=== PATIENT | male | born 1970 | race Caucasian/White ===

== ENCOUNTER 2021-06-06 09:45 | Inpatient (IN) | payer MEDICARE, MEDICAID ==
[~2021-06-06] VITALS: Ht 182.9 cm; Wt 96.5 kg
[~2021-06-06 09:45] MED LIST: AMA100C PO; ARIP400S3 IM; CLOZ200T PO; DOCU-28 PO; OMEP40CA21 PO; PRAZ2CAP2 PO
[2021-06-06 11:30] LABS: BASOPHILS % (AUTO) 0.1 % (0-1); EOSINOPHILS # (AUTO) 0.1 X10'3 (0-0.9); EOSINOPHILS % (AUTO) 0.8 % (0-6); HEMATOCRIT 39.2 % (42.0-52.0); HEMOGLOBIN 13.3 g/dl (14.0-17.9); LYMPHOCYTES % (AUTO) 17.6 % (21-51); MEAN CORPUSCULAR HEMOGLOBIN 30.8 PG (27.0-31.0); MEAN CORPUSCULAR HGB CONC 33.9 g/dL (33.0-36.5); MEAN CORPUSCULAR VOLUME 90.8 FL (78-98); MEAN PLATELET VOLUME 7.4 FL (7.4-10.4); MONOCYTES # (AUTO) 0.9 X10'3 (0-0.9); MONOCYTES % (AUTO) 8.1 % (2-12); NEUTROPHILS # (AUTO) 8.1 X10'3 (1.8-7.7); NEUTROPHILS % (AUTO) 73.4 % (42-75); PLATELET COUNT 413 X10'3 (140-440); RED BLOOD COUNT 4.32 X10'6 (4.70-6.10); RED CELL DISTRIBUTION WIDTH 13.9 % (11.5-14.5); WHITE BLOOD COUNT 11.1 X10'3 (4.5-11.0)
[2021-06-06 11:37] LABS: ALANINE AMINOTRANSFERASE 85 U/L (12-78); ALBUMIN 3.6 G/DL (3.4-5.0); ALBUMIN/GLOBULIN RATIO 0.9 (1.1-1.5); ALKALINE PHOSPHATASE 76 IU/L (46-116); ANION GAP 14 (8-16); ASPARTATE AMINO TRANSFERASE 190 U/L (10-37); BILIRUBIN,TOTAL 0.7 MG/DL (0.1-1.0); BLOOD UREA NITROGEN 10 MG/DL (7-18); BUN/CREATININE RATIO 12.5 (5.4-32.0); CALCIUM 9.1 MG/DL (8.5-10.1); CHLORIDE 97 MMOL/L (99-107); GLUCOSE 67 MG/DL (70-104); POTASSIUM 3.4 MMOL/L (3.5-5.1); SODIUM 131 MMOL/L (135-145); TOTAL CARBON DIOXIDE 20.4 MMOL/L (24-32); TOTAL PROTEIN 7.5 G/DL (6.4-8.2); eGFR > 90 ML/MIN
[2021-06-06 11:45] LABS: ETHANOL < 0.010 GM/DL (0.0-0.010)
[2021-06-06 12:33] LABS: CLARITY,URINE CLEAR (Clear); GLUCOSE, URINE NEGATIVE (Neg); KETONES,URINE 40 mg/dl (Neg); LEUKOCYTE ESTERASE ,URINE NEGATIVE (Neg); NITRITES, URINE NEGATIVE (Neg); OCCULT BLOOD,URINE NEGATIVE (Neg); PROTEIN,URINE NEGATIVE (Neg); UROBILINOGEN,URINE 0.2 E.U/dL (0.2-1.0)
[2021-06-06 12:36] LABS: COLOR,URINE STRAW (Yellow); UA COLLECTION TYPE URINAL
[2021-06-06 12:38] LABS: URINE AMPHETAMINE SCREEN POSITIVE (Neg); URINE BARBITUATE SCREEN NEGATIVE (Neg); URINE BENZODIAZEPINES SCREEN NEGATIVE (Neg); URINE CANNABINOID SCREEN NEGATIVE (Neg); URINE COCAINE SCREEN NEGATIVE (Neg); URINE METHADONE SCREEN NEGATIVE (Neg); URINE OPIATE SCREEN NEGATIVE (Neg); URINE PHENCYCLIDINE SCREEN NEGATIVE (Neg)
[2021-06-06] MEDS: clozapine 100mg tablet PO SCH (22:43)
[2021-06-06] MEDS: prazosin 1mg capsule PO SCH (22:49)
[2021-06-07] MEDS ORDERED: HYDR-3965 PO (06:28)
--- NOTE | 2021-06-07 06:30 | NUR ---
RECEIVED PATIENT WALKING AROUND THE UNIT WITH AN UNSTEADY GAIT THIS MORNING. HE WAS ASSISTED BY STAFF TO THE RESTROOM AND BACK TO BED. PATIENT APPEARS DISORGANIZED, CONFUSED, TALKING LOUDLY, AND UNABLE TO FOLLOW SIMPLE COMMANDS. PATIENT RESTING IN BED AT THIS TIME WITH NO APPARENT DISTRESS. WILL CONTINUE TO MONITOR.
[2021-06-07] MEDS ORDERED: clozapine 100mg tablet PO SCH (08:00)
--- NOTE | 2021-06-07 08:26 | NUR ---
PACKET FAXED TO [facility] OFFICE
--- NOTE | 2021-06-07 08:35 | NUR ---
Patient sitting in bed eating breakfast. He received his RTN morning medication with no difficulty. He was disorganized during assessment, unable to answer simple questions. No change noted at this time. Will continue to monitor.
[2021-06-07] MEDS: pantoprazole 40mg Tablet.DR PO SCH (08:47)
[2021-06-07] MEDS: docusate sod 100mg capsule PO SCH ×2 (08:47→19:24)
[2021-06-07] MEDS: amantadine 100 MG capsule PO SCH ×2 (08:48→19:24)
--- NOTE | 2021-06-07 10:30 | NUR ---
PATIENT OBSERVED SLEEPING IN HIS ROOM AT THIS TIME. PATIENT NOTED PERIODICALLY YELLING OUT RANDOM WORDS WHILE SLEEPING. NO APPARENT DISTRESS NOTED. WILL CONTINUE TO MONITOR.
--- NOTE | 2021-06-07 12:35 | NUR ---
PATIENT AWOKE FROM HIS NAP AND WAS NOTED AMBULATING TO THE BATHROOM WITH AN UNSTEADY GAIT. HE WAS ASSISTED BY STAFF TO THE BATHROOM AND BACK TO HIS ROOM. PATIENT OBSERVED LYING DOWN IN BED WITH NO SIGNS OF DISTRESS. HE IS NOTED TO HAVE COARSE LUNG SOUNDS AND A WET COUGH. DR. EVANS NOTIFIED. PATIENT IS A POOR HISTORIAN AND UNABLE TO RESPOND TO SIMPLE QUESTIONS. WILL CONTINUE TO MONITOR.
--- NOTE | 2021-06-07 14:35 | NUR ---
PATIENT NOTED SLEEPING IN HIS ROOM. RESPIRATIONS EVEN, UNLABORED. NO S/S OF DISTRESS.
--- NOTE | 2021-06-07 16:30 | NUR ---
PATIENT OBSERVED SLEEPING ON HIS RIGHT SIDE IN BED. NO S/S OF DISTRESS NOTED. RESPIRATIONS EVEN, UNLABORED.
--- NOTE | 2021-06-07 19:00 | NUR ---
The patient has been resting on his bed. He ate 100% of his dinner. He is poorly oriented. He could not state how he came to be in the hospital. He was made aware that he was on a 5150 hold and why. He was unable to verbalize a plan for food, alf or clothing. He admits to hearing voices. His replies are very disorganized and at times it is difficult to understand what he trying to say. At one point he stated, "I have broken Iranian. Please don't correct it" The statement was at an odd time when no one was speaking with him.
[2021-06-07] MEDS: clozapine 100mg tablet PO SCH (19:25)
[2021-06-07] MEDS: prazosin 1mg capsule PO SCH (19:31)
--- NOTE | 2021-06-07 21:23 | NUR ---
The patient is resting on his bed and appears to be asleep. He was compliant with his medications. The patient periodically talks in his sleep.
--- NOTE | 2021-06-07 22:42 | NUR ---
The patient appears to be sleeping
--- NOTE | 2021-06-08 00:17 | NUR ---
The patient appears to be sleeping
--- NOTE | 2021-06-08 02:08 | NUR ---
THe patient is sleeping on his bed but frequently talking or calling out in his sleep
--- NOTE | 2021-06-08 04:26 | NUR ---
THe patient is resting on his bed but almost continuous talking to himself or in his sleep
--- NOTE | 2021-06-08 06:41 | NUR ---
Received Pt in bed sleeping w/o distress at the beginning of the shift.
[2021-06-08] MEDS: amantadine 100 MG capsule PO SCH ×2 (08:00→20:28)
--- NOTE | 2021-06-08 08:40 | NUR ---
Attempted to arouse Pt for breakfast and AM meds. Pt mumbled and was drooling. Pt tossed and turned and went back to sleep.
[2021-06-08] MEDS: pantoprazole 40mg Tablet.DR PO SCH (09:56)
[2021-06-08] MEDS: docusate sod 100mg capsule PO SCH ×2 (09:57→20:28)
--- NOTE | 2021-06-08 10:15 | NUR ---
Pt woke and used rest room. Pt returned to bed and spoke with this RN and another staff more clear and is less lethargic. Pt recognized this RN and another from another facility and smiled and laughed. Consulted with Dr Salinas who DC'd current clozaril orders and started at lower dose of 50mg Bid because he had not taken clozaril for over 3 weeks, after eloping from [place] on Apr. Addendum: 06/08/21 at 1641 by ERVIN The time of this note should be 1400. It was a late entry and time was recorded incorectly.
--- NOTE | 2021-06-08 11:00 | NUR ---
Pt in bed and appears to be sleeping at this time.
--- NOTE | 2021-06-08 16:43 | NUR ---
Pt in bed and periodically talking to himself and appears to be responding to internal stimuli. Pt is calm and not disturbing others.
--- NOTE | 2021-06-08 19:26 | NUR ---
One to one with the patient and discussed his plan of care. The patient did not know where he was at or why. He was reoriented. He was oriented to date and year which he also did not know. He denies voices but he clearly is responding to internal stimuli. His speech is much clearer and he currently is not drooling. He does not have a plan for food, assisted or clothing.
[2021-06-08] MEDS ORDERED: clozapine 25mg tablet PO SCH (20:00)
[2021-06-08] MEDS: prazosin 1mg capsule PO SCH (20:28)
--- NOTE | 2021-06-08 20:59 | NUR ---
The patient is resting on his bed quietly talking to himself. Took medications. Had an evening snack.
--- NOTE | 2021-06-08 23:08 | NUR ---
The patient appears to be sleeping
--- NOTE | 2021-06-09 01:27 | NUR ---
The patient appears to be sleeping
--- NOTE | 2021-06-09 03:09 | NUR ---
The patient appears to be sleeping
--- NOTE | 2021-06-09 05:24 | NUR ---
The patient appears to have slept well throughout the night.
--- NOTE | 2021-06-09 06:30 | NUR ---
Received pt. sleeping in bed at the beginning of the shift, rr are even and unlabored.
--- NOTE | 2021-06-09 08:30 | NUR ---
Pt. was cooperative with physical, mental health assessment, and medications. He presents as gaurded with possible paranoid delusions. When questioned by this senior mortgage underwriter why he is here, pt. states in a delusional manner, "I drank poison water." Pt. currently denies any S/I, H/I, or A/V/HOLGUIN. He returns back to sleep. Per [facility] 3568 hold will be re-written on pt.
[2021-06-09] MEDS: amantadine 100 MG capsule PO SCH ×2 (08:49→21:49)
[2021-06-09] MEDS: pantoprazole 40mg Tablet.DR PO SCH (08:50)
[2021-06-09] MEDS: docusate sod 100mg capsule PO SCH ×2 (08:50→21:49)
[2021-06-09] MEDS ORDERED: CLOZAPINE 25 MG oral disintegrating tablet PO SCH ×2 (08:53→20:00)
[2021-06-09] MEDS: CLOZAPINE 25 MG oral disintegrating tablet PO SCH ×2 (09:05→22:09)
--- NOTE | 2021-06-09 10:49 | NUR ---
PtErnie nate to lay in bed, currently laying on his back, appears to be resting comfortably.
--- NOTE | 2021-06-09 12:27 | NUR ---
Pt. continues to sleep at this time, laying on his left side, rr even and unlabored.
--- NOTE | 2021-06-09 14:37 | NUR ---
Pt. sleeping on his left side at this time, appears to be resting comfortably
--- NOTE | 2021-06-09 16:23 | NUR ---
Pt. continues to sleep on his left side at this time, rr remain even and unlabored.
--- NOTE | 2021-06-09 17:58 | NUR ---
Pt. up briefly to ask when dinner will be served, returned to bed, resting comfortably.
--- NOTE | 2021-06-09 18:34 | NUR ---
assumed care; Patient resting in bed.
[2021-06-09] MEDS ORDERED: loperamide 2mg capsule PO PRN (20:05)
[2021-06-09] MEDS ORDERED: mag hydrox/Alum hydrox/simeth 30ml oral suspension PO PRN (20:05)
[2021-06-09] MEDS ORDERED: magnesium hydroxide 30ml (MOM) UD suspension PO PRN (20:05)
[2021-06-09] MEDS ORDERED: acetaminophen 325mg tablet PO PRN ×2 (20:05)
[2021-06-09 20:50] VITALS: BP 99/70
--- NOTE | 2021-06-09 20:50 | NUR ---
ADMIT NOTE: Pt. admitted to [facility] from ER Overflow. Vitals obtained and 2 person skin assessment done. During admission assessment pt. became easily agitated with RN's questions, stating, "I Just need to eat and get some sleep and do these questions later". Per 5150 pt. was unable to formulate plan for food, clothing, and assisted since leaving [facility]. has been off of his medications, confused, and disorganized. During interview pt. denies SI/HI, A/V hallucinations, however, pt. makes some delusional statements such as, "I had lazers on my stomach causing me problems... I had all kinds of lazers on me, it's been going on for a long time". Pt. also makes contradictory statements, when asked about his last bowel movement pt. states, "I've been constipated for a long time, I haven't had a bowel movement in a month". Shortly after pt. states, "I've been having so much diarrhea, that's all I have now". Pt. does not know his vaccination history, and when asked if he had a COVID vaccination, states, "I think so". RN informed pt. to inform staff if having loose stools. Pt. given all HS medications except for Prazosin due to pt.'s BP being decreased at 99/70. Pt. reports previous suicide attempt a few years ago when he tried slitting his neck with a knife, pt. showed this RN a scar on the right side of his neck. Pt. reports he is homeless. Addendum: 06/10/21 at 0242 by Myron Lynch RN additionally, pt. is positive for amphetamines.
[2021-06-09] MEDS: prazosin 1mg capsule PO SCH (21:00)
[2021-06-10 08:00] VITALS: BP 111/75
[2021-06-10] MEDS: docusate sod 100mg capsule PO SCH ×2 (08:31→20:30)
[2021-06-10] MEDS: amantadine 100 MG capsule PO SCH ×2 (08:31→20:30)
[2021-06-10] MEDS: CLOZAPINE 25 MG oral disintegrating tablet PO SCH ×2 (08:31→20:31)
[2021-06-10] MEDS: pantoprazole 40mg Tablet.DR PO SCH (08:31)
[2021-06-10 08:41] LABS: CHOLESTEROL 124 MG/DL (0-200); HDL CHOLESTEROL 41 MG/DL (35-60); LDL CHOLESTEROL 60 MG/DL (50-100); TRIGLYCERIDES 132 MG/DL (20-135)
[2021-06-10 08:43] LABS: HEMOGLOBIN A1C 5.4 % (4.5-6.2)
--- NOTE | 2021-06-10 13:19 | NUR ---
Kenneth is a 50 y/o single male who was placed on 5150 for grave disabiliy. [facility] called [facility] to report that Kenneth had presnted there to get money and was concerned for his well-being. He had gotten $800 on 05/30 and was unable to say what had happened to his money. [facility] met with him to evaluate for 5150 criteria. He was inadequately dressed for the cold weather. He was unable to report where he had stayed the night before and reported he did not sleep due to being cold. He was paranoid and delusional regarding drinking "nuclear water" and stated he was poisoned. He stated he had been staying at the [facility], however, [facility] confirmed he had not been there. He could not recall how he was getting food or the last time he had eaten at the [place]. He also exhibited grandiose delusions regarding owning various companies. Kenneth has a long history of mental health treatment with [facility] including a history of [facility] conservatorship[facility]He was released from [facility] [facility] until 05/17/21. He had AWOL'd and stopped taking his medications and was given a 30 day notice. Kenneth will likely discharge to a hotel and continue working with [facility]. Kenneth did not want to sign consent/release, "I've signed my name over 20 times in the last couple days and it broke me". Plan: Medical Staff Manager will work with Kenneth on a discharge plan and follow up. BHAVANA Castanon Addendum: 06/10/21 at 1323 by Lorelei Infante Amended: Links added.
--- NOTE | 2021-06-10 16:47 | NUR ---
Nursing Progress Note: Legal hold: 5250 Client on involuntary status for GD. Report received from KEIRA Ridley with use of SBAR. Why are they here: Pt. admitted to [facility] from ER Overflow. Vitals obtained and 2 person skin assessment done. During admission assessment pt. became easily agitated with RN's questions, stating, "I Just need to eat and get some sleep and do these questions later". Per 5150 pt. was unable to formulate plan for food, clothing, and correction since leaving [facility]. has been off of his medications, confused, and disorganized. Assessment What has happened this shift: Received pt. sleeping at shift change. Patient awakens for breakfast in the community room. Patient takes medications without incident. Patient then goes back to bed for nap. One to one performed at patient's bedside. Patient reports that the reason he is here is because of radioactive waste water that the patient was exposed to. Patient states that he always hears auditory hallucinations. Patient denies SI/HI. S/I, H/I: Denies. A/VH: +A/H Sleep: 6.50 ADL's: Independent. Group attendance: No Were meds taken: yes Any med S/E: None noted. Mental Status Exam Appearance: Male with short hair wearing unit attire. Eye contact: Direct. Behavior: Cooperative. Speech: Clear. Mood: Depressed. Affect: Blunted. Thought process: Disorganized, psychosis Thought Content: Getting needs met. Cognition: A&O x 3 Insight: Poor. Judgment: Poor PRNs: None. Interventions Therapeutic interventions: Maintained a safe and therapeutic environment, ensured contract for safety, provided clear and simple instructions, attempted to orient to reality, monitored behaviors and need for intervention and redirection, provided active listening and positive encouragement, and maintained Q 15min safety checks. Restraints/seclusion/emergency medication: N/A Justification of Continued Inpatient Treatment: Per JAMES Jo, pt. continues to require a safe and supportive environment.
[2021-06-10 19:00] VITALS: BP 121/70
[2021-06-10] MEDS: prazosin 1mg capsule PO SCH (20:30)
--- NOTE | 2021-06-11 04:21 | NUR ---
RN PROGRESS NOTE: LEGAL HOLD: 5150 for 5150. REASON FOR ADMIT: Client was living at [facility] and stopped taking his medications. He was also positive for Meth upon admission. Clients behaviors was erratic and he became increasingly delusional. THIS SHIFT: Client was in bed at [facility]. He was cooperative with assessment, VS, and medications. Client initially refused to take colace stating, "It just goes to my stomach and pings. It doesn't dissolve. I have about 50 of them in my stomach. They just stay there." This RN reassured client the capsule was designed to dissolve. The client attempted to burst the capsule. He then took the capsule. Client remained in bed for shift. Clients affect is flat, he is guarded, mood is anxious. DISCHARGE: Client is delusional and requires medication adjustment. Addendum: 06/11/21 at 0449 by Courtney Christie RN CORRECTION: LEGAL HOLD: 5150 for GD.
--- NOTE | 2021-06-11 04:50 | NUR ---
CORRECTION: LEGAL HOLD: 5150 for GD.
[2021-06-11 07:32] VITALS: BP 104/70
[2021-06-11] MEDS: CLOZAPINE 25 MG oral disintegrating tablet PO SCH ×2 (07:37→20:56)
[2021-06-11] MEDS: pantoprazole 40mg Tablet.DR PO SCH (07:38)
[2021-06-11] MEDS: amantadine 100 MG capsule PO SCH ×2 (07:38→20:54)
[2021-06-11] MEDS: docusate sod 100mg capsule PO SCH ×2 (07:38→20:54)
--- NOTE | 2021-06-11 08:53 | NUR ---
MRSA positive: Lab called. Pt is MRSA positive. PT is educated on hand washing technique.
--- NOTE | 2021-06-11 16:43 | NUR ---
Nursing Progress Note: Miky Guillen Legal hold: 5250 Client on involuntary status for GD. Report received from KEIRA Ridley with use of SBAR. Why are they here: Per 5150 pt. was unable to formulate plan for food, clothing, and chcf since leaving [facility] Pt. has been off of his medications, confused, and disorganized. Assessment What has happened this shift: Pt. received sleeping in his room. He woke to receive his medications without issue. 1:1 assessment completed at the bedside. Pt. denies SI, HI, but endorses AH, he was unable to elaborate and presented blunted art times. Pt. stated Im here because someone poisoned me with a drink pt. is unable to formulate a DC plan. Pt. often spoke with a soft voice and presents as disoriented at times and paranoid. Pt. ate his meals in the dining room and attended group this morning. Pt. is often napping or laying in his bed awake during shift, he doesnt engage socially with cohorts, and doesnt sit with cohorts in social areas. S/I, H/I: Denies. A/VH: +A/H, denies VH Sleep: 5.50hrs per NOC, napped often ADL's: Independent. Group attendance: Yes Were meds taken: yes Any med S/E: None noted. Mental Status Exam Appearance: Male with bald hair style, tattoo near his eye, and wearing green scrubs. Eye contact: Good Behavior: Cooperative Speech: Soft voice. Mood: Downcast Affect: Congruent with mood Thought process: Disorganized Thought Content: Getting needs met. Cognition: A&O x 3 Insight: Poor. Judgment: Poor PRNs: None. Interventions Therapeutic interventions: Maintained a safe and therapeutic environment, ensured contract for safety, provided clear and simple instructions, attempted to orient to reality, monitored behaviors and need for intervention and redirection, provided active listening and positive encouragement, handwashing r/t +MRSA NS, and maintained Q 15min safety checks. Restraints/seclusion/emergency medication: N/A Justification of Continued Inpatient Treatment: Per JAMES Jo, pt. continues to require a safe and supportive environment.
[2021-06-11 20:19] VITALS: BP 96/61
[2021-06-11] MEDS: prazosin 1mg capsule PO SCH (20:56)
--- NOTE | 2021-06-12 03:43 | NUR ---
RN PROGRESS NOTE: LEGAL HOLD: 5150 for GD REASON FOR ADMIT: Client has hx of psychosis. Client was experiencing delusions about lazers "coming out of his body" and his behavior was disorganized. THIS SHIFT: Client stays in bed and shows little interest in participating in activities on unit. Client lacks motivation to engage with others. Stated, "I just get out of bed to watch TV. I'm cold and I'm worn out." Client is guarded. Client inspects pills before taking PM meds. Client believe's Colace "pings" in his body. Flat affect and depressed mood.
[2021-06-12] MEDS: amantadine 100 MG capsule PO SCH ×2 (08:00→20:06)
[2021-06-12] MEDS: pantoprazole 40mg Tablet.DR PO SCH (08:13)
[2021-06-12] MEDS: CLOZAPINE 25 MG oral disintegrating tablet PO SCH ×2 (08:13→20:06)
[2021-06-12] MEDS: docusate sod 100mg capsule PO SCH ×2 (08:14→20:07)
[2021-06-12 09:26] VITALS: BP 104/63
--- NOTE | 2021-06-12 17:20 | NUR ---
Nursing Progress Note: Legal hold: 5250 Client on involuntary status for GD. Report received from KEIRA Ridley with use of SBAR. Why are they here: Per 5150 pt. was unable to formulate plan for food, clothing, and correction since leaving [facility] Pt. has been off of his medications, confused, and disorganized. Assessment What has happened this shift: Received patient while he was sleeping in bed. Completed 1:1 assessment. Patient is irritable (aeb: moving his body when this RN was attempting to listen to his heart with a stethoscope), then patient stated I refuse you doing an exam on me. Im fine. Im not going through that. Patient ambulated to dining room for breakfast. Attempted to administer medications. Patient was staring at his Colace, and stated You know there is a hard plastic around this medication. Explained to the patient that the medication has a protective covering which isnt plastic, then gel medication inside. Im not going to take it every again. You are trying to poison me here, and I have figured it out. Patient took Colace. Patient also viewed Symmetrel and stated Im not taking this one either so you can take it back. Took time to give patient teaching regarding each medication, but he still refused Symmetrel. Patient stated You are full of bullshit. I know what you guys are trying to do to me in here. Asked patient where he was, and patient stated, Quit fucking with me. Patient is talking back to auditory hallucinations saying Get the hell out of my way. Im here so figure it out. Patient appears blunt, and voicing multiple foul language comments during my conversation with him. Patient appears guarded, angry, consistently covers his head with a blanket when he is sleeping in bed. S/I, H/I: Denies. A/VH: Positive auditory hallucinations. No visual hallucinations. Sleep: Took am & pm nap (approximately 3.5 hours each). ADL's: Independent. Group attendance: Did not attend morning or afternoon Group Meetings. Were meds taken: Patient took some medications. Refused Symmetrel. Patient agrees to take medications, and then views them in the pill cup. He does not accept explanation regarding what each medication is for, and then will refuse some of them. Accuses this RN of trying to poison him. Any med S/E: None noted or observed. Mental Status Exam Appearance: Male with bald hair style, tattoo near his eye, and wearing green scrubs. Eye contact: Good Behavior: Angry @ times. Cooperative during meal times. Easily irritable. Speech: Clear Mood: Easily agitated & angered with administration of medications & explanation of assessment and what medications are used for. Affect: Congruent with mood Thought process: Disorganized Thought Content: Getting needs met. Cognition: A&O x 3 Insight: Poor. Judgment: Poor PRNs: None. Interventions Therapeutic interventions: Maintained a safe and therapeutic environment, ensured contract for safety, provided clear and simple instructions, attempted to orient to reality, monitored behaviors and need for intervention and redirection, provided active listening and positive encouragement, handwashing r/t +MRSA NS, and maintained Q 15min safety checks. Restraints/seclusion/emergency medication: N/A
[2021-06-12] MEDS: prazosin 1mg capsule PO SCH (20:07)
[2021-06-12 20:20] VITALS: BP 112/72
--- NOTE | 2021-06-13 00:37 | NUR ---
Nursing Progress Note: Legal hold: 5250 Client on involuntary status for GD. Report received from KEIRA Cooper with use of SBAR. Why are they here: Per 5150 pt. was unable to formulate plan for food, clothing, and usp since leaving [facility] Pt. has been off of his medications, confused, and disorganized. Assessment What has happened this shift: Pt was lying in bed at shift change, hiding under the covers. When approached, pt stated his name is, britta steve, and reluctantly allowed physical assessment. Pt did not answer when asked about hallucinations and appeared annoyed at being asked questions. Pt was seen out of his room once but not very long. Hs meds taken without issue. S/I, H/I: Denies. A/VH: alfonso Sleep: see sleep assessment ADL's: Independent. Group attendance: n/a Were meds taken: yes Any med S/E: None noted or observed. Mental Status Exam Appearance: Male with bald hair style, tattoo near his eye, and wearing green scrubs. Eye contact: Good Behavior: Easily irritable. Speech: Clear Mood: Easily agitated & angered Affect: Congruent with mood Thought process: Disorganized Thought Content: Getting needs met. Cognition: A&O x 3 Insight: Poor. Judgment: Poor PRNs: None. Interventions Therapeutic interventions: Maintained a safe and therapeutic environment, ensured contract for safety, provided clear and simple instructions, attempted to orient to reality, monitored behaviors and need for intervention and redirection, provided active listening and positive encouragement, handwashing r/t +MRSA NS, and maintained Q 15min safety checks. Restraints/seclusion/emergency medication: N/A
[2021-06-13 07:31] VITALS: BP 103/68
[2021-06-13] MEDS: amantadine 100 MG capsule PO SCH ×2 (08:40→20:05)
[2021-06-13] MEDS: docusate sod 100mg capsule PO SCH ×2 (08:40→20:05)
[2021-06-13] MEDS: CLOZAPINE 25 MG oral disintegrating tablet PO SCH ×2 (08:40→20:06)
[2021-06-13] MEDS: pantoprazole 40mg Tablet.DR PO SCH (08:41)
--- NOTE | 2021-06-13 14:23 | NUR ---
Initial: Pt admit for schizophrenia. Currently on a regular diet and eating well with mostly 100% PO intake throughout LOS. LBM 06/13. No documented edema or wounds. No nutrition diagnosis at this time. Will continue to follow. Recommendations: 1) Continue regular diet 2) Monitor need for additional protein for satiety; offer snacks 3) Bowel care per rx 4) Weekly scaled weights Addendum: 06/13/21 at [address] Amended: Links added.
--- NOTE | 2021-06-13 15:03 | NUR ---
Nursing Progress Note: STEPHENIE Legal hold: 5250 Expires 06/26. Client on involuntary status for GD. Report received from GAVIOTA Carson with use of SBAR. Why are they here: Per 5150 pt. was unable to formulate plan for food, clothing, and senior living since leaving [facility] Pt. has been off of his medications, confused, and disorganized. Assessment What has happened this shift: Received patient sleeping at shift change, respirations even and unlabored. Pt woke prior to breakfast and was compliant with medication and care. Pt presents guarded, answered questions with yes or no, but wouldnt elaborate. Pt was up for all meals and snacks, but then returned to his bed to sleep. Pts affect presents as disorganized and confused. No behaviors or lability mood noted as of this writing. Will continue to monitor. S/I, H/I: Pt denies both. A/VH: Pt denies both verbalized no. Sleep: 7.0 hours per sleep assessment. Napped throughout the shift, was easily arousable. ADL's: Independent, competent. Group attendance: Declined. Were meds taken: Yes, without hesitation. Any med S/E: None noted or observed. Mental Status Exam Appearance: Male with bald hair style, tattoo near his eye, and wearing green scrubs and blue sweatshirt. Eye contact: Good Behavior: Cooperative, isolated to his room, up for meals. No lability mood noted. Speech: Clear, normal rate/rhythm. Mood: Fatigued. Affect: Congruent with mood Thought process: Disorganized Thought Content: Getting needs met. Cognition: A&O x 3 Insight: Poor. Judgment: Poor PRNs: None. Interventions Therapeutic interventions: Maintained a safe and therapeutic environment, ensured contract for safety, provided clear and simple instructions, attempted to orient to reality, monitored behaviors and need for intervention and redirection, provided active listening and positive encouragement, handwashing r/t +MRSA NS, and maintained Q 15min safety checks. Restraints/seclusion/emergency medication: N/A Justification: Patient continues to be disorganized and delusional. Pt unable to formulate a plan for food, senior living or clothing. Pts Clozaril will continue to be titrated to a therapeutic level.
[2021-06-13 19:00] VITALS: BP 110/67
[2021-06-13] MEDS: prazosin 1mg capsule PO SCH (20:06)
--- NOTE | 2021-06-14 00:51 | NUR ---
Nursing Progress Note: Legal hold: 5250 Expires 06/26. Client on involuntary status for GD. Report received from KEIRA Cooper with use of SBAR. Why are they here: Per 5150 pt. was unable to formulate plan for food, clothing, and mcc since leaving [facility] Pt. has been off of his medications, confused, and disorganized. Assessment What has happened this shift: Patient is sleeping in bed following shift change. He primarily isolates in room. Patient is focused on sleep, he tells this press writer he just wants to get out of here. Patient does not elaborate on his thoughts. Patient is medication compliant. He denies H/I, S/I, or any hallucination. S/I, H/I: Denies. A/VH: Denies. Sleep: Will tally at 0500 hours. ADL's: Independent, competent. Group attendance: Declined. Were meds taken: Yes, patient is medication compliant.. Any med S/E: None noted or observed. Mental Status Exam Appearance: WNL. Eye contact: Direct. Behavior: Quiet, isolative. Speech: Clear, normal rate, rhythm, and tone. Mood: Fatigued. Affect: Congruent with mood. Thought process: Disorganized. Thought Content: Getting needs met, wants to go home. Cognition: Alert, oriented to person, place, time, somewhat to situation. Insight: Poor. Judgment: Poor. PRNs: None. Interventions Therapeutic interventions: Maintained a safe and therapeutic environment, ensured contract for safety, provided clear and simple instructions, attempted to orient to reality, monitored behaviors and need for intervention and redirection, provided active listening and positive encouragement, handwashing r/t +MRSA NS, and maintained Q 15min safety checks. Restraints/seclusion/emergency medication: N/A Justification: Patient continues to be disorganized and delusional. Pt unable to formulate a plan for food, mcc or clothing. Pts Clozaril will continue to be titrated to a therapeutic level.
[2021-06-14 08:00] VITALS: BP 101/65
[2021-06-14] MEDS: docusate sod 100mg capsule PO SCH ×2 (08:00→20:00)
[2021-06-14] MEDS: CLOZAPINE 25 MG oral disintegrating tablet PO SCH ×2 (08:22→20:02)
[2021-06-14] MEDS: pantoprazole 40mg Tablet.DR PO SCH (08:22)
[2021-06-14] MEDS: amantadine 100 MG capsule PO SCH ×2 (08:23→20:02)
--- NOTE | 2021-06-14 17:22 | NUR ---
Nursing Progress Note: Legal hold: 5250 Expires 06/26. Client on involuntary status for GD. Report received from KEIRA Escudero with use of SBAR. Why are they here: Per 5150 pt. was unable to formulate plan for food, clothing, and detention since leaving [facility] Pt. has been off of his medications, confused, and disorganized. Assessment What has happened this shift: Received patient while he was sleeping in the bed. Patient covers his head with the blankets at all times while he is in his bed. Met patient in dining room to administer medications to him. Pleasant during interaction. Reports to this RN that he has been experiencing cramps in bilateral upper thighs for the past month. Told patient I would inform Dr. Childress of his complaint. Talkative today and appears pleasant. Patient states Im feeling much better today. Patient took all oral medications at 0800 with the exception of Colace. Reports having a bowel movement each day. Informed Dr. Childress regarding reported leg cramps at 0934. Encouraged patient to attend morning Group Meeting, but patient kindly denied to go. Patient appears much less aggressive and frustrated than two days ago. Patient states You are poisoning the water I want to drink with crystals, and my medications with poison. Thats why I didnt take the red one this morning, referring to the Colace. SI/HI: Denies. A/VH: Denies. Sleep: 3 hour morning nap. ADL's: Independent. Group attendance: Encouraged to attend morning Group Meeting. Were meds taken: Yes, Refused Colace Any med S/E: None noted or observed. Mental Status Exam Appearance: Balding male with green attire on. Eye contact: Direct. Behavior: Quiet, self isolates. Speech: Clear, normal rate, low tone. Mood: Affect: Congruent with mood. Thought process: Delusional. Thought Content: Meeting own needs Cognition: Alert and oriented. Insight: Poor. Judgment: Poor. PRNs: None. Interventions Therapeutic interventions: Maintained a safe and therapeutic environment, ensured contract for safety, provided clear and simple instructions, attempted to orient to reality, monitored behaviors and need for intervention and redirection, provided active listening and positive encouragement, handwashing r/t +MRSA NS, and maintained Q 15min safety checks. Restraints/seclusion/emergency medication: N/A Justification: Patient continues to be disorganized and delusional. Pt unable to formulate a plan for food, detention or clothing. Pts Clozaril will continue to be titrated to a therapeutic level.
[2021-06-14 19:00] VITALS: BP 99/55
[2021-06-14] MEDS: prazosin 1mg capsule PO SCH (20:02)
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
[2021-06-15 08:00] VITALS: BP 108/68
[2021-06-15] MEDS: docusate sod 100mg capsule PO SCH ×2 (08:52→19:56)
[2021-06-15] MEDS: amantadine 100 MG capsule PO SCH ×2 (08:52→19:55)
[2021-06-15] MEDS: CLOZAPINE 25 MG oral disintegrating tablet PO SCH (08:52)
[2021-06-15] MEDS: pantoprazole 40mg Tablet.DR PO SCH (08:52)
[2021-06-15 09:58] LABS: BASOPHILS % (AUTO) 0.4 % (0-1); EOSINOPHILS # (AUTO) 0.1 X10'3 (0-0.9); EOSINOPHILS % (AUTO) 3.1 % (0-6); HEMATOCRIT 37.2 % (42.0-52.0); HEMOGLOBIN 12.5 g/dl (14.0-17.9); LYMPHOCYTES # (AUTO) 1.5 X10'3 (1.1-4.8); MEAN CORPUSCULAR HEMOGLOBIN 30.8 PG (27.0-31.0); MEAN CORPUSCULAR HGB CONC 33.6 g/dL (33.0-36.5); MEAN CORPUSCULAR VOLUME 91.7 FL (78-98); MEAN PLATELET VOLUME 7.8 FL (7.4-10.4); MONOCYTES # (AUTO) 0.4 X10'3 (0-0.9); MONOCYTES % (AUTO) 7.3 % (2-12); NEUTROPHILS # (AUTO) 2.8 X10'3 (1.8-7.7); NEUTROPHILS % (AUTO) 58.2 % (42-75); PLATELET COUNT 253 X10'3 (140-440); RED BLOOD COUNT 4.06 X10'6 (4.70-6.10); RED CELL DISTRIBUTION WIDTH 13.9 % (11.5-14.5); WHITE BLOOD COUNT 4.9 X10'3 (4.5-11.0)
--- NOTE | 2021-06-15 15:47 | NUR ---
Nursing Progress Note: Legal hold: 5250 Expires 06/26. Client on involuntary status for GD. Report received from KEIRA Escudero with use of SBAR. Why are they here: Per 5150 pt. was unable to formulate plan for food, clothing, and long term since leaving [facility] Pt. has been off of his medications, confused, and disorganized. Assessment What has happened this shift: Received patient while he was sleeping in the bed. Patient covers his head with the blankets at all times while he is in his bed. During morning medication pass, patient states "my breakfast has fleas, please check all my food", this magazine writer re-assured patient that our food does not have fleas but I would check his meals if he would like. Later in the day this magazine writer overheard patient telling another patient "the reason you have a roof to your mouth, its so the milk does not go to your brain". Patient continues to be psychotic and disorganized. SI/HI: Denies. A/VH: Denies. Sleep: rested most of the day ADL's: Independent. Group attendance: N/A Were meds taken: Yes Any med S/E: None noted or observed. Mental Status Exam Appearance: Balding male with green attire on. Eye contact: Direct. Behavior: Quiet, self isolates. Speech: Clear, normal rate, low tone. Mood: guarded Affect: Congruent with mood. Thought process: Delusional. Thought Content: Meeting own needs Cognition: Alert and oriented. Insight: Poor. Judgment: Poor. PRNs: None. Interventions Therapeutic interventions: Maintained a safe and therapeutic environment, ensured contract for safety, provided clear and simple instructions, attempted to orient to reality, monitored behaviors and need for intervention and redirection, provided active listening and positive encouragement, handwashing r/t +MRSA NS, and maintained Q 15min safety checks. Restraints/seclusion/emergency medication: N/A Justification: Patient continues to be disorganized and delusional. Pt unable to formulate a plan for food, long term or clothing. Pts Clozaril will continue to be titrated to a therapeutic level.
[2021-06-15 19:57] VITALS: BP 113/75
[2021-06-15] MEDS: prazosin 1mg capsule PO SCH (20:03)
[2021-06-15] MEDS: clozapine 100mg tablet PO SCH (20:03)
--- NOTE | 2021-06-16 01:31 | NUR ---
Nursing Progress Note: Legal hold: 5250 Client on involuntary status for GD. Report received from Ravinder RN with use of SBAR. Why are they here: Per 5150 pt. was unable to formulate plan for food, clothing, and senior living since leaving [facility] Pt. has been off of his medications, confused, and disorganized. Assessment What has happened this shift: Pt was out of his room during shift change watching tv in the group room. Pt asked this rn to take down my mask to talk to him, as he feels more comfortable. Pt denies being suicidal but endorses voices, stating theyre not bothering him. Pt attended snack and went to bed shortly after. S/I, H/I: Denies. A/VH: endorses voices Sleep: see sleep assessment ADL's: Independent. Group attendance: n/a Were meds taken: yes Any med S/E: None noted or observed. Mental Status Exam Appearance: Male with bald hair style, tattoo near his eye, and wearing green scrubs. Eye contact: Good Behavior: calm, cooperative Speech: Clear Mood: content Affect: Congruent with mood Thought process: Disorganized Thought Content: Getting needs met. Cognition: A&O x 3 Insight: Poor. Judgment: Poor PRNs: None. Interventions Therapeutic interventions: Maintained a safe and therapeutic environment, ensured contract for safety, provided clear and simple instructions, attempted to orient to reality, monitored behaviors and need for intervention and redirection, provided active listening and positive encouragement, handwashing r/t +MRSA NS, and maintained Q 15min safety checks. Restraints/seclusion/emergency medication: N/A
[2021-06-16 07:50] LABS: BASOPHILS % (AUTO) 0.3 % (0-1); EOSINOPHILS # (AUTO) 0.1 X10'3 (0-0.9); EOSINOPHILS % (AUTO) 2.8 % (0-6); HEMATOCRIT 39.4 % (42.0-52.0); HEMOGLOBIN 13.3 g/dl (14.0-17.9); LYMPHOCYTES # (AUTO) 1.7 X10'3 (1.1-4.8); LYMPHOCYTES % (AUTO) 32.8 % (21-51); MEAN CORPUSCULAR HEMOGLOBIN 30.6 PG (27.0-31.0); MEAN CORPUSCULAR HGB CONC 33.7 g/dL (33.0-36.5); MEAN PLATELET VOLUME 7.6 FL (7.4-10.4); MONOCYTES # (AUTO) 0.5 X10'3 (0-0.9); MONOCYTES % (AUTO) 8.6 % (2-12); NEUTROPHILS # (AUTO) 2.9 X10'3 (1.8-7.7); NEUTROPHILS % (AUTO) 55.5 % (42-75); PLATELET COUNT 269 X10'3 (140-440); RED BLOOD COUNT 4.33 X10'6 (4.70-6.10); RED CELL DISTRIBUTION WIDTH 14.1 % (11.5-14.5); WHITE BLOOD COUNT 5.2 X10'3 (4.5-11.0)
[2021-06-16 08:00] VITALS: BP 100/66
[2021-06-16 08:10] LABS: ALANINE AMINOTRANSFERASE 25 U/L (12-78); ALBUMIN 3.4 G/DL (3.4-5.0); ALBUMIN/GLOBULIN RATIO 0.9 (1.1-1.5); ALKALINE PHOSPHATASE 71 IU/L (46-116); ANION GAP 9 (8-16); ASPARTATE AMINO TRANSFERASE 13 U/L (10-37); BILIRUBIN,TOTAL 0.2 MG/DL (0.1-1.0); BLOOD UREA NITROGEN 19 MG/DL (7-18); BUN/CREATININE RATIO 19.6 (5.4-32.0); CHLORIDE 104 MMOL/L (99-107); CREATININE 0.97 MG/DL (0.60-1.10); GLUCOSE 106 MG/DL (70-104); POTASSIUM 4.2 MMOL/L (3.5-5.1); SODIUM 138 MMOL/L (135-145); TOTAL CARBON DIOXIDE 25.4 MMOL/L (24-32); eGFR 82 ML/MIN
[2021-06-16] MEDS: docusate sod 100mg capsule PO SCH ×2 (08:35→20:00)
[2021-06-16] MEDS: pantoprazole 40mg Tablet.DR PO SCH (08:35)
[2021-06-16] MEDS: amantadine 100 MG capsule PO SCH ×2 (08:35→20:16)
[2021-06-16] MEDS: clozapine 100mg tablet PO SCH ×2 (08:54→20:16)
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
[2021-06-16] MEDS ORDERED: ibuprofen tablet 400 MG TABLET PO PRN (17:35)
--- NOTE | 2021-06-16 17:37 | NUR ---
Nursing Progress Note: Kenneth Guillen Legal hold: 5250 Client on involuntary status for GD. Report received from KEIRA Escudero with use of SBAR. Why are they here: Per 5150 pt. was unable to formulate plan for food, clothing, and fpc since leaving [facility] Pt. has been off of his medications, confused, and disorganized. Assessment What has happened this shift: Patient observed sleeping in bed at shift change. He joined in the community room with peers for breakfast. He retreated back to his room immediately after breakfast, noted lying in bed with a blanket covering his head. He was cooperative with assessment and compliant with RTN medication. 1:1 assessment completed, lungs CTA. Patient endorsed to this designer writer that his water is being poisoned with chemicals and it is hurting his bones. This designer writer reassured patient that water was safe and filtered. He declined to join in group therapy today despite encouragement. Patient continues to present as paranoid and disorganized. He denies SI, HI, AH or VH. Does not appear to be responding to internal stimuli. Patient was quiet and self-isolative to his room the majority of the day, noted hiding underneath his blanket. He joined in the community room for snack and meal times. SI/HI: Denies. A/VH: Denies. Sleep: Slept 9 hours last night per NOC shift. Napped on and off throughout the day. ADL's: Independent. Group attendance: No Were meds taken: Yes Any med S/E: None noted or observed. Mental Status Exam Appearance: Balding male, wearing green unit attire Eye contact: Direct. Behavior: Quiet, self isolates. Speech: Clear, normal rate, low tone. Mood: Guarded Affect: Congruent with mood. Thought process: Delusional. Thought Content: Meeting own needs. Paranoid that water is being poisoned with chemicals. Cognition: Alert and oriented. Insight: Poor. Judgment: Poor. PRNs: None. Interventions Therapeutic interventions: Maintained a safe and therapeutic environment, ensured contract for safety, provided clear and simple instructions, attempted to orient to reality, monitored behaviors and need for intervention and redirection, provided active listening and positive encouragement, handwashing r/t +MRSA NS, and maintained Q 15min safety checks. Restraints/seclusion/emergency medication: N/A Justification: Patient continues to be disorganized and delusional. Pt unable to formulate a plan for food, fpc or clothing. Pts Clozaril will continue to be titrated to a therapeutic level.
[2021-06-16 20:00] VITALS: BP 101/73
[2021-06-16] MEDS: prazosin 1mg capsule PO SCH (20:15)
--- NOTE | 2021-06-17 01:39 | NUR ---
Nursing Progress Note: Legal hold: 5250 Client on involuntary status for GD. Report received from KEIRA Mclean with use of SBAR. Why are they here: Per 5150 pt. was unable to formulate plan for food, clothing, and retirement since leaving [facility] Pt. has been off of his medications, confused, and disorganized. Assessment What has happened this shift: Pt was lying in his bed at shift change, reporting that he is tired. Pt continues to have delusions about water being poisoned. Pt reports mild constipation; he was encouraged to hydrate better as this could be the cause, but pt is reluctant. Pt continues to endorse voices, stating that they are bothering him. All hs meds taken without issue. S/I, H/I: Denies. A/VH: endorses voices Sleep: see sleep assessment ADL's: Independent. Group attendance: n/a Were meds taken: yes Any med S/E: None noted or observed. Mental Status Exam Appearance: Male with bald hair style, tattoo near his eye, and wearing green scrubs. Eye contact: Good Behavior: calm, cooperative Speech: Clear Mood: content Affect: Congruent with mood Thought process: Disorganized Thought Content: Getting needs met. Cognition: A&O x 3 Insight: Poor. Judgment: Poor PRNs: None. Interventions Therapeutic interventions: Maintained a safe and therapeutic environment, ensured contract for safety, provided clear and simple instructions, attempted to orient to reality, monitored behaviors and need for intervention and redirection, provided active listening and positive encouragement, handwashing r/t +MRSA NS, and maintained Q 15min safety checks. Restraints/seclusion/emergency medication: N/A
[2021-06-17 07:38] VITALS: BP 123/75
[2021-06-17] MEDS: docusate sod 100mg capsule PO SCH ×2 (08:11→19:52)
[2021-06-17] MEDS: amantadine 100 MG capsule PO SCH ×2 (08:12→19:53)
[2021-06-17] MEDS: pantoprazole 40mg Tablet.DR PO SCH (08:13)
[2021-06-17] MEDS: clozapine 100mg tablet PO SCH ×2 (09:00→20:18)
--- NOTE | 2021-06-17 16:06 | NUR ---
Nursing Progress Note: Legal hold: 5250 Expires 06/26. Client on involuntary status for GD. Report received from KEIRA Ridley with use of SBAR. Why are they here: Per 5150 pt. was unable to formulate plan for food, clothing, and jail since leaving [facility] Pt. has been off of his medications, confused, and disorganized. Assessment What has happened this shift: Received patient while he was sleeping in the bed. Patient covers his head with the blankets at all times while he is in his bed. Patient continues to be psychotic and disorganized. Kenneth isolated more today that the past few days, when asked Kenneth said "I am alright, I am just doing me today so you do you". This ticket writer did ask Kenneth about his past MH history and patient states he has been conserved in the past and wants to try to get a plan on his own, but alexis (payee) doesn't answer the phone. SI/HI: Denies. A/VH: Denies. Sleep: rested most of the day ADL's: Independent. Group attendance: N/A Were meds taken: Yes Any med S/E: None noted or observed. Mental Status Exam Appearance: Balding male with green attire on. Eye contact: Direct. Behavior: Quiet, self isolates. Speech: Clear, normal rate, low tone. Mood: guarded Affect: Congruent with mood. Thought process: Delusional. Thought Content: Meeting own needs Cognition: Alert and oriented. Insight: Poor. Judgment: Poor. PRNs: None. Interventions Therapeutic interventions: Maintained a safe and therapeutic environment, ensured contract for safety, provided clear and simple instructions, attempted to orient to reality, monitored behaviors and need for intervention and redirection, provided active listening and positive encouragement, handwashing r/t +MRSA NS, and maintained Q 15min safety checks. Restraints/seclusion/emergency medication: N/A Justification: Patient continues to be disorganized and delusional. Pt unable to formulate a plan for food, jail or clothing. Pts Clozaril will continue to be titrated to a therapeutic level.
[2021-06-17 19:40] VITALS: BP 99/73
[2021-06-17] MEDS: prazosin 1mg capsule PO SCH (20:18)
[2021-06-17] MEDS: clozapine 25mg tablet PO SCH (20:18)
--- NOTE | 2021-06-17 23:39 | NUR ---
Nursing Progress Note: Legal hold: 5250 Client on involuntary status for GD. Report received from KEIRA Mclean with use of SBAR. Why are they here: Per 5150 pt. was unable to formulate plan for food, clothing, and alf since leaving [facility] Pt. has been off of his medications, confused, and disorganized. Assessment What has happened this shift: Pt was lying in his bed at shift change, but came out to watch tv in the group room before snack. Pt is still delusional, stating, when they took blood, they took it from the right side of my brain and I cant feel the left side now. Pt is friendly and cooperative for assessments and care but does not discuss much about what is going on internally. All hs meds taken without issue. S/I, H/I: Denies. A/VH: endorses voices Sleep: see sleep assessment ADL's: Independent. Group attendance: n/a Were meds taken: yes Any med S/E: None noted or observed. Mental Status Exam Appearance: Male with bald hair style, tattoo near his eye, and wearing green scrubs. Eye contact: Good Behavior: calm, cooperative Speech: Clear Mood: content Affect: Congruent with mood Thought process: Disorganized Thought Content: Getting needs met. Cognition: A&O x 3 Insight: Poor. Judgment: Poor PRNs: None. Interventions Therapeutic interventions: Maintained a safe and therapeutic environment, ensured contract for safety, provided clear and simple instructions, attempted to orient to reality, monitored behaviors and need for intervention and redirection, provided active listening and positive encouragement, handwashing r/t +MRSA NS, and maintained Q 15min safety checks. Restraints/seclusion/emergency medication: N/A
[2021-06-18 07:16] VITALS: BP 130/72
[2021-06-18] MEDS: amantadine 100 MG capsule PO SCH ×2 (07:53→20:15)
[2021-06-18] MEDS: docusate sod 100mg capsule PO SCH ×2 (07:53→20:15)
[2021-06-18] MEDS: pantoprazole 40mg Tablet.DR PO SCH (07:54)
[2021-06-18] MEDS: clozapine 100mg tablet PO SCH ×2 (07:54→20:15)
--- NOTE | 2021-06-18 17:39 | NUR ---
Nursing Progress Note: Legal hold: 5250 Expires 06/26. Client on involuntary status for GD. Report received from KEIRA Ridley with use of SBAR. Why are they here: Per 5150 pt. was unable to formulate plan for food, clothing, and group home since leaving [facility] Pt. has been off of his medications, confused, and disorganized. Assessment What has happened this shift: Received patient sleeping on the floor with his blankets on. Patient awakens for breakfast and sits by himself. Patient reports at snack time that he is feeling dizzy. BP: 100/68. P: 85, 98%. Encouraged patient to drink more fluids and to get up slowly. Patient stated that he still has poison in his testicles. Patient attended group. Patient is cooperative and friendly. SI/HI: Denies. A/VH: Denies. Sleep: 8 hours at [facility]. ADL's: Independent. Group attendance: Yes. Were meds taken: Yes Any med S/E: None noted or observed. Mental Status Exam Appearance: Balding male, dressed in green unit attire. Eye contact: Direct. Behavior: Quiet, self isolates. Speech: Clear, normal rate, low tone. Mood: Depressed. Affect: Congruent with mood. Thought process: Delusional. Thought Content: Meeting own needs Cognition: Alert and oriented. Insight: Poor. Judgment: Poor. PRNs: None. Interventions Therapeutic interventions: Maintained a safe and therapeutic environment, ensured contract for safety, provided clear and simple instructions, attempted to orient to reality, monitored behaviors and need for intervention and redirection, provided active listening and positive encouragement, handwashing r/t +MRSA NS, and maintained Q 15min safety checks. Restraints/seclusion/emergency medication: N/A Justification: Patient continues to be disorganized and delusional. Pt unable to formulate a plan for food, group home or clothing. Pts Clozaril will continue to be titrated to a therapeutic level.
[2021-06-18] MEDS: prazosin 1mg capsule PO SCH (20:14)
[2021-06-18] MEDS: clozapine 25mg tablet PO SCH (20:15)
[2021-06-18 20:38] VITALS: BP 102/66
--- NOTE | 2021-06-19 02:17 | NUR ---
Nursing Progress Note: Legal hold: 5250 Expires 06/26. Client on involuntary status for GD. Report received from KEIRA Mclean with use of SBAR. Why are they here: Per 5150 pt. was unable to formulate plan for food, clothing, and chcf since leaving [facility] Pt. has been off of his medications, confused, and disorganized. Assessment What has happened this shift: Patient was observed laying in bed awake at beginning of shift. Patient later was observed pacing hallways until snack time. Patient participated in snack time and returned to pacing. Nurse attempted to talk to patient, patient responded in one word answers or not respond at all. Patient took medications and went to bed. SI/HI: Denies. A/VH: Denies. Sleep: See sleep assessment ADL's: Independent. Group attendance: Yes. Were meds taken: Yes Any med S/E: None noted or observed. Mental Status Exam Appearance: Balding male, dressed in green unit attire. Eye contact: Direct. Behavior: Quiet, self isolates. Speech: Clear, normal rate, low tone. Mood: Depressed. Affect: Congruent with mood. Thought process: Delusional. Thought Content: Meeting own needs Cognition: Alert and oriented. Insight: Poor. Judgment: Poor. PRNs: None. Interventions Therapeutic interventions: Maintained a safe and therapeutic environment, ensured contract for safety, provided clear and simple instructions, attempted to orient to reality, monitored behaviors and need for intervention and redirection, provided active listening and positive encouragement, handwashing r/t +MRSA NS, and maintained Q 15min safety checks. Restraints/seclusion/emergency medication: N/A Justification: Patient continues to be disorganized and delusional. Pt unable to formulate a plan for food, chcf or clothing. Pts Clozaril will continue to be titrated to a therapeutic level.
[2021-06-19] MEDS: pantoprazole 40mg Tablet.DR PO SCH (07:47)
[2021-06-19] MEDS: amantadine 100 MG capsule PO SCH ×2 (07:48→20:24)
[2021-06-19] MEDS: clozapine 100mg tablet PO SCH ×2 (07:48→20:16)
[2021-06-19] MEDS: docusate sod 100mg capsule PO SCH ×2 (07:50→20:17)
[2021-06-19 07:52] VITALS: BP 128/69
--- NOTE | 2021-06-19 17:18 | NUR ---
Nursing Progress Note: Legal hold: 5250 Expires 06/26. Client on involuntary status for GD. Report received from KEIRA Vines with use of SBAR. Why are they here: Per 5150 pt. was unable to formulate plan for food, clothing, and mcc since leaving [facility] Pt. has been off of his medications, confused, and disorganized. Assessment What has happened this shift: Received patient while he was asleep in bed. Patient ambulated to the Community Room for breakfast and medications were administered at this time. Patient continues to refuse Colace because he states It is poison, do you understand that? Informed patient that it was used to keep his bowel movements regular and stool soft. Patient replied Thats what you think, but I know what it really is. Patient reported that the red pill (Amantadine) really helps out the pain in my legs. Difficult to converse with the patient during his 1:1 assessment. Patient returned to bed immediately after breakfast, and slept in his room until lunch time. Late this afternoon, Patient was sitting in the dining room speaking with another female patient, and was seen with his socks off both feet and picking old brown skin off his feet and dropping it on the floor around him. Patient was immediately sent to take a shower and to use a shower soap to clean his body extensively as well as his feet. Patient dressed back into green scrubs. Noc shift will be asked to reassess his feet and if further skin care needed they can fill out a Wound Care Consultation order for patient to be seen when they are available. Patient was given new socks to put on his feet at this time. SI/HI: Denies. A/VH: Denies. Sleep: 4 hour morning nap ADL's: Independent. Group attendance: No Group Meeting held this morning. Did not attend afternoon Group Meeting. Were meds taken: Took Amantadine, Protonix & Symmetrel, without hesitation. Refused Colace. Any med S/E: None noted or observed. Mental Status Exam Appearance: Balding male, dressed in green unit attire. Eye contact: Direct. Behavior: Quiet, self isolates. Speech: Clear, normal rate, low tone. Mood: Depressed. Affect: Congruent with mood. Thought process: Scattered. Thought Content: Meeting own needs Cognition: Delusions Insight: Poor. Judgment: Poor. PRNs: None. Interventions Therapeutic interventions: Maintained a safe and therapeutic environment, ensured contract for safety, provided clear and simple instructions, attempted to orient to reality, monitored behaviors and need for intervention and redirection, provided active listening and positive encouragement, handwashing r/t +MRSA NS, and maintained Q 15min safety checks. Restraints/seclusion/emergency medication: N/A Justification: Patient continues to be disorganized and delusional. Pt unable to formulate a plan for food, mcc or clothing. Pts Clozaril will continue to be titrated to a therapeutic level.
[2021-06-19 19:00] VITALS: BP 113/72
[2021-06-19] MEDS: prazosin 1mg capsule PO SCH (20:16)
[2021-06-19] MEDS: clozapine 25mg tablet PO SCH (20:17)
--- NOTE | 2021-06-20 02:35 | NUR ---
Nursing Progress Note: Legal hold: 5250 Expires 06/26. Client on involuntary status for GD. Report received from KEIRA Cooper with use of SBAR. Why are they here: Per 5150 pt. was unable to formulate plan for food, clothing, and detention since leaving [facility] Pt. has been off of his medications, confused, and disorganized. Assessment What has happened this shift: Patient was found sleeping in bed at beginning of shift. Patient continued to self isolate in room until snack time. Patient participated in snack time and took all night medications without a problem. Patient appeared distant, avoiding eye contact with nurse and speaking low. Patient paced hallways before going to bed. SI/HI: Denies. A/VH: Denies. Sleep: See sleep assessment ADL's: Independent. Group attendance: No Group Meeting held this morning. Did not attend afternoon Group Meeting. Were meds taken: Took Amantadine, Protonix & Symmetrel, without hesitation. Refused Colace. Any med S/E: None noted or observed. Mental Status Exam Appearance: Balding male, dressed in green unit attire. Eye contact: Direct. Behavior: Quiet, self isolates. Speech: Clear, normal rate, low tone. Mood: Depressed. Affect: Congruent with mood. Thought process: Scattered. Thought Content: Meeting own needs Cognition: Delusions Insight: Poor. Judgment: Poor. PRNs: None. Interventions Therapeutic interventions: Maintained a safe and therapeutic environment, ensured contract for safety, provided clear and simple instructions, attempted to orient to reality, monitored behaviors and need for intervention and redirection, provided active listening and positive encouragement, handwashing r/t +MRSA NS, and maintained Q 15min safety checks. Restraints/seclusion/emergency medication: N/A Justification: Patient continues to be disorganized and delusional. Pt unable to formulate a plan for food, detention or clothing. Pts Clozaril will continue to be titrated to a therapeutic level.
[2021-06-20] MEDS: pantoprazole 40mg Tablet.DR PO SCH (07:37)
[2021-06-20] MEDS: amantadine 100 MG capsule PO SCH ×2 (07:37→20:49)
[2021-06-20] MEDS: clozapine 100mg tablet PO SCH ×2 (07:37→20:19)
[2021-06-20] MEDS: docusate sod 100mg capsule PO SCH ×2 (07:38→20:49)
[2021-06-20 08:00] VITALS: BP 92/63
--- NOTE | 2021-06-20 17:30 | NUR ---
Nursing Progress Note: Legal hold: 5250 Expires 06/26. Client on involuntary status for GD. Report received from KEIRA Escudero with use of SBAR. Why are they here: Per 5150 pt. was unable to formulate plan for food, clothing, and care home since leaving [facility] Pt. has been off of his medications, confused, and disorganized. Assessment What has happened this shift: Received Patient while he was sleeping in bed with his whole body covered up in a warm blanket. Patient up in Community Room drinking coffee and socializing with others. Patient quiet with minimal verbalization of needs. Patient avoids eye contact and speaks in a low tone. Self isolates in room when not in Community Room to eat meals. Patient becoming more interactive with others and appears to enjoy their presence talking to them in the Community Room. Patient spent this afternoon enjoying [employer] movies in the Community Room with multiple other patients. All patients appeared to enjoy their time and laughing could be overheard from the Community Room. New orders from JAMES Sawyer who increased patients dose of Clozaril po hs starting tonight. SI/HI: Denies. A/VH: Denies. Sleep: 3.5 hour morning nap, 2 hr. afternoon nap ADL's: Independent. With Prompting. Group attendance: No Group Meeting held today. Were meds taken: Yes, Refused Colace Any med S/E: None noted or observed. Mental Status Exam Appearance: Balding male, dressed in green unit attire. Eye contact: Avoidance Behavior: Quiet, self isolates. Speech: Clear, normal rate, low tone. Mood: Depressed. Affect: Congruent with mood. Thought process: Poverty of Thought Thought Content: Meeting own needs Cognition: Delusions Insight: Poor. Judgment: Poor. PRNs: None. Interventions Therapeutic interventions: Maintained a safe and therapeutic environment, ensured contract for safety, provided clear and simple instructions, attempted to orient to reality, monitored behaviors and need for intervention and redirection, provided active listening and positive encouragement, handwashing r/t +MRSA NS, and maintained Q 15min safety checks. Restraints/seclusion/emergency medication: N/A Justification: Patient continues to be disorganized and delusional. Pt unable to formulate a plan for food, care home or clothing. Pts Clozaril will continue to be titrated to a therapeutic level.
[2021-06-20] MEDS: prazosin 1mg capsule PO SCH (20:19)
[2021-06-20 21:00] VITALS: BP 106/81
--- NOTE | 2021-06-20 23:29 | NUR ---
Nursing Progress Note: Legal hold: 5250 Expires 06/26. Client on involuntary status for GD. Report received from KEIRA Cooper with use of SBAR. Why are they here: Per 5150 pt. was unable to formulate plan for food, clothing, and nursing home since leaving [facility] Pt. has been off of his medications, confused, and disorganized. Assessment What has happened this shift: Patient was asleep in his room at change of shift. He latter got up and went to the group room. Pt sat and watched tv till snack time ate snack then returned to his room. Meds given at bed side and pt was cooperative. SI/HI: Denies. A/VH: Denies. Sleep: See sleep assessment. ADL's: Independent. With Prompting. Group attendance: No Group Meeting held today. Were meds taken: Yes, Refused Colace Any med S/E: None noted or observed. Mental Status Exam Appearance: Balding male, dressed in green unit attire. Eye contact: Avoidance Behavior: Quiet, self isolates. Speech: Clear, normal rate, low tone. Mood: Depressed. Affect: Congruent with mood. Thought process: Poverty of Thought Thought Content: Meeting own needs Cognition: Delusions Insight: Poor. Judgment: Poor. PRNs: None. Interventions Therapeutic interventions: Maintained a safe and therapeutic environment, ensured contract for safety, provided clear and simple instructions, attempted to orient to reality, monitored behaviors and need for intervention and redirection, provided active listening and positive encouragement, handwashing r/t +MRSA NS, and maintained Q 15min safety checks. Restraints/seclusion/emergency medication: N/A Justification: Patient continues to be disorganized and delusional. Pt unable to formulate a plan for food, nursing home or clothing. Pts Clozaril will continue to be titrated to a therapeutic level.
[2021-06-21] MEDS: pantoprazole 40mg Tablet.DR PO SCH (08:01)
[2021-06-21] MEDS: amantadine 100 MG capsule PO SCH ×2 (08:01→20:21)
[2021-06-21] MEDS: docusate sod 100mg capsule PO SCH ×2 (08:01→20:21)
[2021-06-21] MEDS: clozapine 100mg tablet PO SCH ×2 (08:01→20:21)
[2021-06-21 08:16] VITALS: BP 98/65
[2021-06-21] MEDS: cephalexin 500mg capsule PO SCH (16:36)
--- NOTE | 2021-06-21 16:44 | NUR ---
Nursing Progress Note: SAGE Legal hold: 5250 Expires 06/26. Client on involuntary status for GD. Report received from GAVIOTA Escudero with use of SBAR. Why are they here: Per 5150 pt. was unable to formulate plan for food, clothing, and mcfp since leaving [facility] Pt. has been off of his medications, confused, and disorganized. Assessment What has happened this shift: Received patient sleeping at shift change, blankets pulled over his head. Noted visible respirations even and unlabored. Pt woke prior to breakfast to open [place] presents. Pt presents with a constricted affect, but brightens slightly when opening gifts. Pt was cooperative with care and medication. Pt endorses AH stating they are always there. During assessment pt points to his bed and said they have to go. I pulled the sheets down and he was on me. When gag writer asked who, pt stated black. Cake Batter Mixer has seen pt interact appropriately with a female peer, small, short conversations. Pts feet were assessed and they continue to be dry and flakey. Pt declined lotion, but showered and was given clean socks. No outbursts noted today. Pt becoming more visible on the unit. Later in the day gag writer walked past pts room and he was sitting on the side of his bed with his head down. When asked what was wrong pt said nothing. Pt didnt want to engage in conversation. Keflex was prescribed for skin infection under right axilla, with PRN warm compresses. SI/HI: Pt denies. A/VH: Pt denies. Sleep: 7.75 hours per sleep assessment. Intermittent naps. ADL's: Independent. With Prompting. Group attendance: No scheduled group today. Were meds taken: Yes, without issue. Any med S/E: None noted or observed. Mental Status Exam Appearance: Balding male, dressed in green unit attire and lambert beanie. Eye contact: Fair Behavior: Quiet, cooperative, isolates, but becoming a little more social. Speech: Clear, soft, normal rate. Mood: Euthymic Affect: Constricted. Thought process: Poverty of Thought Thought Content: Meeting own needs Cognition: Delusions Insight: Poor. Judgment: Poor. PRNs: None. Interventions Therapeutic interventions: Maintained a safe and therapeutic environment, ensured contract for safety, provided clear and simple instructions, attempted to orient to reality, monitored behaviors and need for intervention and redirection, provided active listening and positive encouragement, handwashing r/t +MRSA, and maintained Q 15min safety checks. Restraints/seclusion/emergency medication: N/A Justification: Patient continues to be disorganized and delusional. Pt unable to formulate a plan for food, mcfp or clothing. Pts Clozaril will continue to be titrated to a therapeutic level.
--- NOTE | 2021-06-21 16:45 | NUR ---
NOTE BELOW IS CORRECT DOCUMENTATION. NAME ON TITLE SHOULD READ STEPHENIE.
[2021-06-21 20:00] VITALS: BP 120/82
[2021-06-21] MEDS: prazosin 1mg capsule PO SCH (20:21)
[2021-06-21] MEDS: lactobacillus rhamnosus 10,000 MMU CELLS/CAPSULE PO SCH (20:21)
[2021-06-22] MEDS: cephalexin 500mg capsule PO SCH ×4 (00:06→23:42)
--- NOTE | 2021-06-22 01:17 | NUR ---
Nursing Progress Note: Kenneth Legal hold: 5250 Expires 06/26. Client on involuntary status for GD. Report received from Kenneth MEEK with use of SBAR. Why are they here: Per 5150 pt. was unable to formulate plan for food, clothing, and senior living since leaving [facility] Pt. has been off of his medications, confused, and disorganized. Assessment What has happened this shift: Received patient sleeping lying in bed at change of shift. Pt cooperative with care. Patient states he hears voices all the time and he needs a vacation. He states he gets tired of his voices. Pt states the voices tell him to hate his name. He would like to go back to [facility]. Pt noted to be up for snacks in the community room and took all HS medications and went back to his room for sleep. SI/HI: Pt denies. A/VH: Pt denies. Sleep: ADL's: Independent. With Prompting. Group attendance: NA Were meds taken: Yes, without issue. Any med S/E: None noted or observed. Mental Status Exam Appearance: Balding male, dressed in green unit attire and lambert beanie. Eye contact: Fair Behavior: Quiet, cooperative, isolates, but becoming a little more social. Speech: Clear, soft, normal rate. Mood: Euthymic Affect: Constricted. Thought process: Poverty of Thought Thought Content: Meeting own needs Cognition: Delusions Insight: Poor. Judgment: Poor. PRNs: None. Interventions Therapeutic interventions: Maintained a safe and therapeutic environment, ensured contract for safety, provided clear and simple instructions, attempted to orient to reality, monitored behaviors and need for intervention and redirection, provided active listening and positive encouragement, handwashing r/t +MRSA, and maintained Q 15min safety checks. Restraints/seclusion/emergency medication: N/A Justification: Patient continues to be disorganized and delusional. Pt unable to formulate a plan for food, senior living or clothing. Pts Clozaril will continue to be titrated to a therapeutic level.
[2021-06-22] MEDS: lactobacillus rhamnosus 10,000 MMU CELLS/CAPSULE PO SCH ×2 (08:17→20:11)
[2021-06-22] MEDS: docusate sod 100mg capsule PO SCH ×2 (08:17→20:11)
[2021-06-22] MEDS: clozapine 100mg tablet PO SCH ×2 (08:17→20:12)
[2021-06-22] MEDS: amantadine 100 MG capsule PO SCH ×2 (08:17→20:11)
[2021-06-22] MEDS: pantoprazole 40mg Tablet.DR PO SCH (08:17)
[2021-06-22 08:45] VITALS: BP 106/73
--- NOTE | 2021-06-22 15:30 | NUR ---
Reassessment: Currently on a regular diet and eating well with mostly 100% PO intake throughout LOS. LBM 06/20. No documented edema or wounds. No nutrition diagnosis at this time. Will continue to follow. Recommendations: 1) Continue regular diet 2) Monitor need for additional protein for satiety; offer snacks 3) Bowel care per rx 4) Weekly scaled weights Addendum: 06/22/21 at [address] Amended: Links added.
--- NOTE | 2021-06-22 17:29 | NUR ---
Nursing Progress Note: Legal hold: 5250 Expires 06/26. Client on involuntary status for GD. Report received from: GAVIOTA Escudero, with use of SBAR. Why are they here: Per 5150 pt. was unable to formulate plan for food, clothing, and residential since leaving [facility] Pt. has been off of his medications, confused, and disorganized. Assessment: Received patient while he was in the dining room at 0630, sitting drinking coffee. Patient verbalizes with specific peers, but does not initiate the verbal communication. Patient continues to improve his cooperation with taking medications and his care. Self Isolates in bed in between meals. Spending more time with peers in the Community Room before breakfast or lunch times. Patient took all medications and did not make any delusional statements regarding trying to poison him. Patient makes poor eye contact, usually holds his head to the side when speaking to him or discussing his assessment. Patient is quick to move from one task to another (aeb: Eats his meals extremely quick, walks out of Community Room leaving his meal tray and his discarded napkins, as well as dropped food on the table, ambulates quickly to his room and rolls up in a blanket covered up entirely to sleep. SI/HI: Pt denies. A/VH: Pt denies. Sleep: Patient took morning and afternoon naps. ADL's: Independent, with prompting. Group attendance: No Group Meetings on weekends. Were meds taken: Yes, without issue. Any med S/E: None noted or observed. Mental Status Exam Appearance: Balding male, dressed in green unit attire and lambert beanie. Eye contact: Poor, but improving Behavior: Quiet, cooperative, isolates, but becoming a little more social. Speech: Clear, soft, normal rate. Mood: Euthymic Affect: Constricted. Thought process: Poverty of Thought Thought Content: Meeting own needs Cognition: Delusions Insight: Poor. Judgment: Poor. PRNs: None. Interventions Therapeutic interventions: Maintained a safe and therapeutic environment, ensured contract for safety, provided clear and simple instructions, attempted to orient to reality, monitored behaviors and need for intervention and redirection, provided active listening and positive encouragement, handwashing r/t +MRSA, and maintained Q 15min safety checks. Restraints/seclusion/emergency medication: N/A Justification: Patient continues to be disorganized and delusional. Pt unable to formulate a plan for food, residential or clothing. Pts Clozaril will continue to be titrated to a therapeutic level.
[2021-06-22 20:00] VITALS: BP 109/73
[2021-06-22] MEDS: prazosin 1mg capsule PO SCH (20:12)
[2021-06-22] MEDS: clozapine 25mg tablet PO SCH (20:14)
--- NOTE | 2021-06-23 01:27 | NUR ---
Nursing Progress Note: Kenneth Legal hold: 5250 Expires 06/26. Client on involuntary status for GD. Report received from: Kenneth MEEK, with use of SBAR. Why are they here: Per 5150 pt. was unable to formulate plan for food, clothing, and fdc since leaving [facility] Pt. has been off of his medications, confused, and disorganized. Assessment: Received patient lying in bed resting. Pt calm and cooperative with vitals/assessment. Pt notes the he hears voices all the time and they say the same shit to him. He states they really try to confuse me and Im getting tired of it. Pt up to the community room for snacks and took all HS medications. Pt to bed shortly after. SI/HI: Pt denies. A/VH: +AH Sleep: ADL's: Independent, with prompting. Group attendance: Were meds taken: Yes, without issue. Any med S/E: None noted or observed. Mental Status Exam Appearance: Balding male, dressed in green unit attire and lambert beanie. Eye contact: Poor, but improving Behavior: Quiet, cooperative, isolates, but becoming a little more social. Speech: Clear, soft, normal rate. Mood: Euthymic Affect: Constricted. Thought process: Poverty of Thought Thought Content: Meeting own needs Cognition: Delusions Insight: Poor. Judgment: Poor. PRNs: None. Interventions Therapeutic interventions: Maintained a safe and therapeutic environment, ensured contract for safety, provided clear and simple instructions, attempted to orient to reality, monitored behaviors and need for intervention and redirection, provided active listening and positive encouragement, handwashing r/t +MRSA, and maintained Q 15min safety checks. Restraints/seclusion/emergency medication: N/A Justification: Patient continues to be disorganized and delusional. Pt unable to formulate a plan for food, fdc or clothing. Pts Clozaril will continue to be titrated to a therapeutic level.
[2021-06-23] MEDS: lactobacillus rhamnosus 10,000 MMU CELLS/CAPSULE PO SCH ×2 (08:07→20:09)
[2021-06-23] MEDS: pantoprazole 40mg Tablet.DR PO SCH (08:07)
[2021-06-23] MEDS: cephalexin 500mg capsule PO SCH ×3 (08:07→23:44)
[2021-06-23] MEDS: clozapine 100mg tablet PO SCH ×2 (08:07→20:10)
[2021-06-23] MEDS: amantadine 100 MG capsule PO SCH ×2 (08:07→20:09)
[2021-06-23] MEDS: docusate sod 100mg capsule PO SCH ×2 (08:07→20:09)
[2021-06-23 08:22] VITALS: BP 108/69
[2021-06-23 09:09] LABS: BASOPHILS % (AUTO) 0.2 % (0-1); EOSINOPHILS # (AUTO) 0.2 X10'3 (0-0.9); EOSINOPHILS % (AUTO) 2.8 % (0-6); HEMATOCRIT 39.7 % (42.0-52.0); HEMOGLOBIN 13.3 g/dl (14.0-17.9); LYMPHOCYTES # (AUTO) 1.7 X10'3 (1.1-4.8); LYMPHOCYTES % (AUTO) 26.4 % (21-51); MEAN CORPUSCULAR HEMOGLOBIN 30.3 PG (27.0-31.0); MEAN CORPUSCULAR HGB CONC 33.4 g/dL (33.0-36.5); MEAN CORPUSCULAR VOLUME 90.8 FL (78-98); MEAN PLATELET VOLUME 7.9 FL (7.4-10.4); MONOCYTES # (AUTO) 0.5 X10'3 (0-0.9); MONOCYTES % (AUTO) 7.5 % (2-12); NEUTROPHILS # (AUTO) 4.2 X10'3 (1.8-7.7); NEUTROPHILS % (AUTO) 63.1 % (42-75); PLATELET COUNT 267 X10'3 (140-440); RED BLOOD COUNT 4.37 X10'6 (4.70-6.10); WHITE BLOOD COUNT 6.6 X10'3 (4.5-11.0)
--- NOTE | 2021-06-23 12:12 | NUR ---
Met with patient in regards to substance use and to see if patient was interested in treatment options. Patient declined and said he is not interested.
--- NOTE | 2021-06-23 17:16 | NUR ---
Nursing Progress Note: Legal hold: 5250 Expires 06/26. Client on involuntary status for GD. Report received from: GAVIOTA Ridley, with use of SBAR. Why are they here: Per 5150 pt. was unable to formulate plan for food, clothing, and mcfp since leaving [facility] Pt. has been off of his medications, confused, and disorganized. Assessment: Received patient while he was walking down the fraga and returned to his room. Patient was drinking coffee at this time. Scanned medications and attempted to administer them to this patient, when he responded Ill take them from you when I am ready, so until then, you just need to wait. 1:1 Assessment completed where he stated I hear things every day and its too personal to talk about. Okay, Ill tell you. My real name is Adair, and then somebody switched my name and Im really mad about this. Patient has been seen ambulating in hallway with arms crossed and walking with head down making no eye contact with others passing. Patient frequents the Community Room for short periods of time, then returns to his room and covers himself up from head to toe in a warm blanket. Patient watching TV with peers in Community Room most of this afternoon. SI/HI: Pt denies. A/VH: Auditory Hallucinations regarding his name. Sleep: Morning nap was 2.5 hours and afternoon nap is 1 hour. ADL's: Independent, with prompting. Group attendance: No Group Meeting held today. Were meds taken: Patient was offered medications while breakfast trays were being delivered to others. Patient stated Ill take them from you when I am ready, so until then you just need to wait. Any med S/E: None noted or observed. Mental Status Exam Appearance: Male with shaved head, dressed in green unit attire and lambert beanie. Eye contact: Poor, but improving Behavior: Quiet, cooperative, isolates, but becoming a little more social. Speech: Clear, soft, normal rate. Mood: Indignant. Affect: Constricted. Thought process: Poverty of Thought Thought Content: Meeting own needs Cognition: Delusions Insight: Poor. Judgment: Poor. PRNs: None. Interventions Therapeutic interventions: Maintained a safe and therapeutic environment, ensured contract for safety, provided clear and simple instructions, attempted to orient to reality, monitored behaviors and need for intervention and redirection, provided active listening and positive encouragement, handwashing r/t +MRSA, and maintained Q 15min safety checks. Restraints/seclusion/emergency medication: N/A Justification: Patient continues to be disorganized and delusional. Pt unable to formulate a plan for food, mcfp or clothing. Pts Clozaril will continue to be titrated to a therapeutic level.
[2021-06-23 20:00] VITALS: BP 119/82
[2021-06-23] MEDS: prazosin 1mg capsule PO SCH (20:10)
[2021-06-23] MEDS: clozapine 25mg tablet PO SCH (20:10)
--- NOTE | 2021-06-24 01:52 | NUR ---
Nursing Progress Note: Kenneth Legal hold: 5250 Expires 06/26. Client on involuntary status for GD. Report received from: Kenneth MEEK, with use of SBAR. Why are they here: Per 5150 pt. was unable to formulate plan for food, clothing, and longterm since leaving [facility] Pt. has been off of his medications, confused, and disorganized. Assessment: Received patient in his room lying down with blankets over his head. He states he doesnt know how he is doing but still hears voices. My voices are dumb. She doesnt know what shes talking about. Pt denied depression and does have some mild anxiety. He states that his name is Kenneth Guillen and he doesnt know how much money he has in his bank account to cover the cost of his stay here. He said he thinks hes running out of money. SI/HI: Pt denies. A/VH: +AH Sleep: ADL's: Independent, with prompting. Group attendance: Were meds taken: yes Any med S/E: None noted or observed. Mental Status Exam Appearance: Male with shaved head, dressed in green unit attire and lambert beanie. Eye contact: Poor, but improving Behavior: Quiet, cooperative, isolates, but becoming a little more social. Speech: Clear, soft, normal rate. Mood: Indignant. Affect: Constricted. Thought process: Poverty of Thought Thought Content: Meeting own needs Cognition: Delusions Insight: Poor. Judgment: Poor. PRNs: None. Interventions Therapeutic interventions: Maintained a safe and therapeutic environment, ensured contract for safety, provided clear and simple instructions, attempted to orient to reality, monitored behaviors and need for intervention and redirection, provided active listening and positive encouragement, handwashing r/t +MRSA, and maintained Q 15min safety checks. Restraints/seclusion/emergency medication: N/A Justification: Patient continues to be disorganized and delusional. Pt unable to formulate a plan for food, longterm or clothing. Pts Clozaril will continue to be titrated to a therapeutic level.
[2021-06-24] MEDS: cephalexin 500mg capsule PO SCH ×3 (08:08→23:42)
[2021-06-24] MEDS: clozapine 100mg tablet PO SCH ×2 (08:08→20:29)
[2021-06-24] MEDS: lactobacillus rhamnosus 10,000 MMU CELLS/CAPSULE PO SCH ×2 (08:08→20:29)
[2021-06-24] MEDS: amantadine 100 MG capsule PO SCH ×2 (08:08→20:29)
[2021-06-24] MEDS: pantoprazole 40mg Tablet.DR PO SCH (08:09)
[2021-06-24] MEDS: docusate sod 100mg capsule PO SCH ×2 (08:09→20:30)
[2021-06-24 08:37] VITALS: BP 117/74
--- NOTE | 2021-06-24 13:54 | NUR ---
Nursing Progress Note: Legal hold: 5250 Expires 06/26/21 Client on involuntary status for GD. Report received from: GAVIOTA Ridley, with use of SBAR. Why are they here: Per 5150 pt. was unable to formulate plan for food, clothing, and fpc since leaving [facility] Pt. has been off of his medications, confused, and disorganized. Assessment: Pt was up late for breakfast. Pt was cooperative with his medications. Pt asked what the amantadine was for. Medication education provided. Pt is delusional. Pt asked, "could the cramps in my legs be from the electricity under my bed? I know it's from electricity. Pt continues to endorse AH. Pt reports, "they're dumb...all day everyday for years." Pt continues on PO Keflex for right axilla furuncle, no adverse reactions noted. SI/HI: Pt denies. A/VH: AH Sleep: Pt slept 5.5 hours last night per noc shift report, pt naps during the day. ADL's: Independent Group attendance: Pt declined. Were meds taken: Yes Any med S/E: None noted or reported. Mental Status Exam Appearance: Thin middle aged male with balding shaved dark hair and a tear drop tattoo dressed in green unit scrubs. Eye contact: Fair to good. Behavior: Cooperative, mostly isolative to self. Speech: Clear, soft, normal rate & rhythm, minimal. Mood: Calm Affect: Constricted, internally preoccupied. Thought process: Delusional Thought Content: The electricity under his bed is causing his leg cramps. Cognition: A/O X 3 Insight: Poor. Judgment: Poor. PRNs: None. Interventions Therapeutic interventions: 1:1 assessment, therapeutic communication, active listening, establishment of rapport, maintained a safe and therapeutic environment, ensured contract for safety, provided clear and simple instructions, medication administration/education/monitoring, handwashing and infection control education r/t +MRSA nares, encouragement to attend groups and participate in unit activities, behavior monitoring and intervention as needed; provided distraction, redirection, reality orientation, positive reinforcement, and maintained Q 15 minute safety checks. Restraints/seclusion/emergency medication: None Justification: Patient continues to be disorganized and delusional. Pt unable to formulate a plan for food, fpc or clothing. Pts Clozaril will continue to be titrated to a therapeutic level.
[2021-06-24 19:46] VITALS: BP 109/76
[2021-06-24] MEDS: clozapine 25mg tablet PO SCH (20:29)
[2021-06-24] MEDS: prazosin 1mg capsule PO SCH (20:29)
--- NOTE | 2021-06-25 02:02 | NUR ---
Nursing Progress Note: Legal hold: 5250 Client on involuntary status for GD. Report received from: KEIRA Cooper, with use of SBAR Why are they here: Per 5150 pt. was unable to formulate plan for food, clothing, and senior care since leaving [facility] Pt. has been off of his medications, confused, and disorganized. Assessment: Patient laying in bed awake at the beginning of shift. Pleasant and cooperative with all care; compliant with medication. Continues ABx for boil in R armpit. Patient denies SI, HI, A/VH; appears to be responding to IS (observed muttering under his covers). Patient participated in HS snack and returned to bed; observed having difficulty getting to sleep this shift. SI/HI: Denies A/VH: Denies; appears to be responding to IS Sleep: Refer to sleep assessment ADL's: Independent Group attendance: NA Were meds taken: Yes Any med S/E: None observed or reported Mental Status Exam Appearance: Neat and appropriately dressed Eye contact: Good Behavior: Pleasant and cooperative, mostly isolative to self Speech: Clear, soft, minimal Mood: Calm Affect: Constricted Thought process: Appears to be thought blocking Thought Content: Meeting needs Cognition: A/O X3 Insight: Poor Judgment: Poor Interventions PRNs: None Therapeutic interventions: 1:1 assessment, therapeutic communication, active listening, establishment of rapport, maintained a safe and therapeutic environment, ensured contract for safety, provided clear and simple instructions, medication administration/education/monitoring, handwashing and infection control education r/t +MRSA nares, encouragement to attend groups and participate in unit activities, behavior monitoring and intervention as needed; provided distraction, redirection, reality orientation, positive reinforcement, and maintained Q 15 minute safety checks. Restraints/seclusion/emergency medication: NA Justification: Patient continues to be disorganized and delusional. Pt unable to formulate a plan for food, senior care or clothing. Pts Clozaril will continue to be titrated to a therapeutic level.
[2021-06-25 07:25] VITALS: BP 108/73
[2021-06-25] MEDS: cephalexin 500mg capsule PO SCH ×3 (08:07→23:56)
[2021-06-25] MEDS: amantadine 100 MG capsule PO SCH ×2 (08:07→20:13)
[2021-06-25] MEDS: clozapine 100mg tablet PO SCH ×2 (08:07→20:13)
[2021-06-25] MEDS: lactobacillus rhamnosus 10,000 MMU CELLS/CAPSULE PO SCH ×2 (08:07→20:13)
[2021-06-25] MEDS: docusate sod 100mg capsule PO SCH ×2 (08:07→20:13)
[2021-06-25] MEDS: pantoprazole 40mg Tablet.DR PO SCH (08:07)
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
[2021-06-25 19:41] VITALS: BP 104/68
[2021-06-25] MEDS: prazosin 1mg capsule PO SCH (20:13)
--- NOTE | 2021-06-26 03:17 | NUR ---
Nursing Progress Note: Legal hold: 5250 Client on involuntary status for GD. Report received from: KEIRA Mclean, with use of SBAR Why are they here: Per 5150 pt. was unable to formulate plan for food, clothing, and senior care since leaving [facility] Pt. has been off of his medications, confused, and disorganized. Assessment: Patient laying in bed awake at the beginning of shift. Pleasant and cooperative with care; compliant with medication. He began to refuse medication d/t plastic casing; reported, "plastic in my stomach makes me pee too much." Venue Coordinator offered to put medications into applesauce, he agreed and took medication without hesitation. He reported having "nervous hands" and appeared to be anxious at the time. Patient participated in HS snack and promptly returned to bed; does not appear to be having difficulty this shift. Patient was woke up for ABx, took it without difficulty in yogurt. At the time patient reported feeling "dizzy" he was encouraged to drink fluids and water pitcher filled for him, he reported understanding and no further complaints at this time. SI/HI: Denies A/VH: Denies; appears to be responding to IS Sleep: Refer to sleep assessment ADL's: Independent Group attendance: NA Were meds taken: Yes Any med S/E: None observed or reported Mental Status Exam Appearance: Neat and appropriately dressed Eye contact: Good Behavior: Pleasant and cooperative, mostly isolative to self Speech: Clear, soft, minimal Mood: Calm Affect: Constricted Thought process: Paranoid delusions Thought Content: Meeting needs Cognition: A/O X3 Insight: Poor Judgment: Poor Interventions PRNs: None Therapeutic interventions: 1:1 assessment, therapeutic communication, active listening, establishment of rapport, maintained a safe and therapeutic environment, ensured contract for safety, provided clear and simple instructions, medication administration/education/monitoring, handwashing and infection control education r/t +MRSA nares, encouragement to attend groups and participate in unit activities, behavior monitoring and intervention as needed; provided distraction, redirection, reality orientation, positive reinforcement, and maintained Q 15 minute safety checks. Restraints/seclusion/emergency medication: NA Justification: Patient continues to be disorganized and delusional. Pt unable to formulate a plan for food, senior care or clothing. Pts Clozaril will continue to be titrated to a therapeutic level.
[2021-06-26] MEDS: docusate sod 100mg capsule PO SCH ×2 (07:33→20:16)
[2021-06-26] MEDS: lactobacillus rhamnosus 10,000 MMU CELLS/CAPSULE PO SCH ×2 (07:33→20:16)
[2021-06-26] MEDS: amantadine 100 MG capsule PO SCH ×2 (07:33→20:16)
[2021-06-26] MEDS: cephalexin 500mg capsule PO SCH ×2 (07:33→15:06)
[2021-06-26] MEDS: pantoprazole 40mg Tablet.DR PO SCH (07:34)
[2021-06-26] MEDS: clozapine 100mg tablet PO SCH ×2 (07:34→20:16)
[2021-06-26 07:44] VITALS: BP 121/70
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
[2021-06-26 19:40] VITALS: BP 115/81
[2021-06-26] MEDS: prazosin 1mg capsule PO SCH (20:15)
[2021-06-27] MEDS: cephalexin 500mg capsule PO SCH ×3 (00:56→15:33)
--- NOTE | 2021-06-27 01:43 | NUR ---
Nursing Progress Note: Legal hold: 5270 Client on involuntary status for GD. Report received from CATRINA Blanton with use of SBAR Why are they here: Per 5150 pt. was unable to formulate plan for food, clothing, and chcf since leaving [facility] Pt. has been off of his medications, confused, and disorganized. Assessment: Patient observed socializing and walking with female peer at the beginning of shift. Pleasant and cooperative with care; compliant with medication. Continues to request capsules to be opened up and put in yogurt (preference) or apple sauce d/t paranoid delusions of plastic in his stomach. Remains on PO ABx for boil in R axilla; no ASE observed or reported. Patient remained social and participated in HS snack prior to bed. Patient was asked to change rooms by staff d/t roommate's behaviors and this patient was pleasant and cooperative with room change. He is observed sleeping and does not appear to be having difficulty. SI/HI: Denies A/VH: Denies Sleep: Refer to sleep assessment ADL's: Independent Group attendance: NA Were meds taken: Yes Any med S/E: None observed or reported Mental Status Exam Appearance: Neat and appropriately dressed Eye contact: Good Behavior: Pleasant and cooperative, social Speech: Clear, soft, minimal Mood: Euthymic Affect: Congruent Thought process: Paranoid delusions Thought Content: Meeting needs Cognition: A/O X3 Insight: Poor Judgment: Poor Interventions PRNs: None Therapeutic interventions: 1:1 assessment, therapeutic communication, active listening, establishment of rapport, maintained a safe and therapeutic environment, ensured contract for safety, provided clear and simple instructions, medication administration/education/monitoring, handwashing and infection control education r/t +MRSA nares, encouragement to attend groups and participate in unit activities, behavior monitoring and intervention as needed; provided distraction, redirection, reality orientation, positive reinforcement, and maintained Q 15 minute safety checks. Restraints/seclusion/emergency medication: NA Justification: Patient continues to be disorganized and delusional. Pt unable to formulate a plan for food, chcf or clothing. Pts Clozaril will continue to be titrated to a therapeutic level.
[2021-06-27 08:00] VITALS: BP 102/65
[2021-06-27] MEDS: docusate sod 100mg capsule PO SCH ×2 (08:00→20:10)
[2021-06-27] MEDS: amantadine 100 MG capsule PO SCH ×2 (08:08→20:10)
[2021-06-27] MEDS: clozapine 100mg tablet PO SCH ×2 (08:08→20:10)
[2021-06-27] MEDS: pantoprazole 40mg Tablet.DR PO SCH (08:08)
[2021-06-27] MEDS: lactobacillus rhamnosus 10,000 MMU CELLS/CAPSULE PO SCH ×2 (08:08→20:10)
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
[2021-06-27 19:16] VITALS: BP 108/76
[2021-06-27] MEDS: prazosin 1mg capsule PO SCH (20:09)
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
[2021-06-28] MEDS: cephalexin 500mg capsule PO SCH (01:08)
[2021-06-28] MEDS: pantoprazole 40mg Tablet.DR PO SCH (07:27)
[2021-06-28] MEDS: lactobacillus rhamnosus 10,000 MMU CELLS/CAPSULE PO SCH ×2 (07:27→19:34)
[2021-06-28] MEDS: amantadine 100 MG capsule PO SCH ×2 (07:27→19:34)
[2021-06-28] MEDS: clozapine 100mg tablet PO SCH ×2 (07:27→20:00)
[2021-06-28] MEDS: docusate sod 100mg capsule PO SCH ×2 (07:27→19:34)
[2021-06-28 08:00] VITALS: BP 118/81
[2021-06-28] MEDS ORDERED: cephalexin 250mg capsule PO ONE (08:00)
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
[2021-06-28 20:00] VITALS: BP 120/82
[2021-06-28] MEDS: clozapine 25mg tablet PO SCH (20:00)
[2021-06-28] MEDS: prazosin 1mg capsule PO SCH (20:01)
--- NOTE | 2021-06-29 00:12 | NUR ---
Nursing Progress Note: Legal hold: 5250 Client on involuntary status for GD. Report received from: Ravinder RN, with use of SBAR. Why are they here: Per 5150 pt. was unable to formulate plan for food, clothing, and alf since leaving [facility] and Care Pt. has been off of his medications, confused, and disorganized. Assessment: Patient was in his room at shift change. Pt reports that he had a good day, but voices are still there. Pt denies pain but stated he had one bout of diarrhea. Pt spent most of the evening in his room but was seen out for snack and to watch tv for a while. All hs meds taken without issue. SI/HI: Denies. A/VH: endorses Sleep: Refer to sleep assessment ADL's: Independent. 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 Were meds taken: Yes, medication compliant. Any med S/E: None observed or reported. Mental Status Exam Appearance: Neat and appropriately dressed. Eye contact: Direct. Behavior: Pleasant and cooperative, he self isolates. Speech: Normal rate, rhythm, and tone. Mood: Calm and cooperative. Affect: Constricted. Thought process: Delusional. Thought Content: Meeting one's needs. Cognition: A/O X3, not completely to situation. Insight: Poor. Judgment: Poor. Interventions PRNs: None. Therapeutic interventions: 1:1 assessment, therapeutic communication, active listening, establishment of rapport, maintained a safe and therapeutic environment, ensured contract for safety, provided clear and simple instructions, medication administration/education/monitoring, handwashing and infection control education r/t +MRSA nares, encouragement to attend groups and participate in unit activities, behavior monitoring and intervention as needed; provided distraction, redirection, reality orientation, positive reinforcement, and maintained Q 15 minute safety checks. Restraints/seclusion/emergency medication: NA Justification: Patient continues to be disorganized and delusional. Pt unable to formulate a plan for food, alf or clothing. Pts Clozaril will continue to be titrated to a therapeutic level.
[2021-06-29 08:00] VITALS: BP 111/73
[2021-06-29] MEDS: clozapine 100mg tablet PO SCH ×2 (08:33→19:33)
[2021-06-29] MEDS: lactobacillus rhamnosus 10,000 MMU CELLS/CAPSULE PO SCH ×2 (08:33→19:33)
[2021-06-29] MEDS: amantadine 100 MG capsule PO SCH ×2 (08:34→19:33)
[2021-06-29] MEDS: docusate sod 100mg capsule PO SCH ×2 (08:34→19:33)
[2021-06-29] MEDS: pantoprazole 40mg Tablet.DR PO SCH (08:34)
--- NOTE | 2021-06-29 17:28 | NUR ---
Nursing Progress Note: Kenneth Hernadez Legal hold: 5250 Client on involuntary status for GD. Report received from GAVIOTA Mendez with use of SBAR. Why are they here: Per 5150 pt. was unable to formulate plan for food, clothing, and usp since leaving [facility] and Care Pt. has been off of his medications, confused, and disorganized. Assessment What has happened this shift: Received pt. sleeping in bed, bundled up in blankets at shift change. Patient awakens late for breakfast and takes medications without incident. Patient has isolated to his room for most of the day, sleeping. Pt. states that he would like it if you could stop them from electrocuting my legs at night. Pt. continues to suffer from delusions. SI/HI: Pt denies both. A/VH: +AH Sleep: 7.75 hrs, one nap today ADL's: Independent Group attendance: NA Were meds taken: Yes Any med S/E: None noted or observed. Mental Status Exam Appearance: Balding male, dressed in green unit attire. Teardrop tattoo under left eye. Eye contact: Fair Behavior: Isolates and socially withdrawn Speech: Soft spoken Mood: Anxious Affect: Flat Thought process: Delusional Thought Content: Being electrocuted at night. Cognition: A/O X3 Insight: Poor. Judgment: Poor. PRNs: None. Interventions Therapeutic interventions: Maintained a safe and therapeutic environment, ensured contract for safety, provided clear and simple instructions, attempted to orient to reality, monitored behaviors and need for intervention and redirection, provided active listening and positive encouragement, handwashing r/t +MRSA, and maintained Q 15min safety checks. Restraints/seclusion/emergency medication: N/A Justification: Patient continues to be disorganized and delusional. Pt unable to formulate a plan for food, usp or clothing. Pts Clozaril will continue to be titrated to a therapeutic level.
[2021-06-29 19:21] VITALS: BP 116/82
[2021-06-29] MEDS: clozapine 25mg tablet PO SCH (19:33)
[2021-06-29] MEDS: prazosin 1mg capsule PO SCH (19:33)
--- NOTE | 2021-06-30 02:04 | NUR ---
Nursing Progress Note: Legal hold: 5250 Client on involuntary status for GD. Report received from KEIRA Castellon, with use of SBAR. Why are they here: Per 5150 pt. was unable to formulate plan for food, clothing, and intermediate since leaving [facility] and Care Pt. has been off of his medications, confused, and disorganized. Assessment: What has happened this shift: Patient was isolating to his room at shift change. He comes out after a while, anxious and agitated. "I drank coffee yesterday that had a fly in it. Now I'm spitting Lice out of my mouth." Asked him what he thought I could do about it. "Nothing, I just drank some dish soap, so I should be ok." Patient asked if he could have his HS meds a little early, so he could go to sleep. Patient has no PRN for anxiety, so gave him HS meds early. Patient went to room to sleep, and remains there. SI/HI: Denies. A/VH: + AH Sleep: Refer to sleep assessment ADL's: Independent. 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 Were meds taken: Yes. Any med S/E: None observed or reported. Mental Status Exam Appearance: Disheveled, malodorous, but appropriately dressed. Eye contact: Direct. Behavior: Pleasant and cooperative, delusional, isolative. Speech: Normal rate, rhythm, and tone. Mood: Restless and anxious. Affect: Constricted. Thought process: Delusional. Thought Content: Meeting one's needs. Cognition: A/O X3, not completely to situation. Insight: Poor. Judgment: Poor. Interventions PRNs: None. Therapeutic interventions: 1:1 assessment, therapeutic communication, active listening, establishment of rapport, maintained a safe and therapeutic environment, ensured contract for safety, provided clear and simple instructions, medication administration/education/monitoring, handwashing and infection control education r/t +MRSA nares, encouragement to attend groups and participate in unit activities, behavior monitoring and intervention as needed; provided distraction, redirection, reality orientation, positive reinforcement, and maintained Q 15 minute safety checks. Restraints/seclusion/emergency medication: NA Justification: Patient continues to be disorganized and delusional. Pt unable to formulate a plan for food, intermediate or clothing. Pts Clozaril will continue to be titrated to a therapeutic level.
--- NOTE | 2021-06-30 07:38 | NUR ---
Reassessment: Currently on a regular diet and eating well with mostly 100% PO intake throughout LOS. LBM 06/28. No documented edema or wounds. No nutrition diagnosis at this time. Will continue to follow. Recommendations: 1) Continue regular diet 2) Monitor need for additional protein for satiety; offer snacks 3) Bowel care per rx 4) Weekly scaled weights Addendum: 06/30/21 at [address] Amended: Links added.
[2021-06-30 07:44] VITALS: BP 131/71
[2021-06-30] MEDS: pantoprazole 40mg Tablet.DR PO SCH (08:06)
[2021-06-30] MEDS: docusate sod 100mg capsule PO SCH ×2 (08:06→20:13)
[2021-06-30] MEDS: amantadine 100 MG capsule PO SCH ×2 (08:07→20:13)
[2021-06-30] MEDS: lactobacillus rhamnosus 10,000 MMU CELLS/CAPSULE PO SCH ×2 (08:07→20:13)
[2021-06-30] MEDS: clozapine 100mg tablet PO SCH ×2 (08:07→20:13)
[2021-06-30 08:10] LABS: BASOPHILS % (AUTO) 0.2 % (0-1); EOSINOPHILS # (AUTO) 0.2 X10'3 (0-0.9); EOSINOPHILS % (AUTO) 3.5 % (0-6); HEMATOCRIT 41.3 % (42.0-52.0); HEMOGLOBIN 13.9 g/dl (14.0-17.9); LYMPHOCYTES # (AUTO) 1.7 X10'3 (1.1-4.8); LYMPHOCYTES % (AUTO) 36.4 % (21-51); MEAN CORPUSCULAR HEMOGLOBIN 30.6 PG (27.0-31.0); MEAN CORPUSCULAR HGB CONC 33.6 g/dL (33.0-36.5); MEAN CORPUSCULAR VOLUME 91.2 FL (78-98); MONOCYTES # (AUTO) 0.5 X10'3 (0-0.9); MONOCYTES % (AUTO) 10.4 % (2-12); NEUTROPHILS # (AUTO) 2.3 X10'3 (1.8-7.7); NEUTROPHILS % (AUTO) 49.5 % (42-75); PLATELET COUNT 254 X10'3 (140-440); RED BLOOD COUNT 4.52 X10'6 (4.70-6.10); RED CELL DISTRIBUTION WIDTH 14.3 % (11.5-14.5); WHITE BLOOD COUNT 4.6 X10'3 (4.5-11.0)
--- NOTE | 2021-06-30 16:14 | NUR ---
PROBABLE CAUSE HEARING FOR 5270 GD WAS UPHELD
--- NOTE | 2021-06-30 17:22 | NUR ---
Nursing Progress Note: Legal hold: 5250 Client on involuntary status for GD. Report received from GAVIOTA Mendez with use of SBAR. Why are they here: Per 5150 pt. was unable to formulate plan for food, clothing, and [place] [facility] since leaving [facility] and Care Pt. has been off of his medications, confused, and disorganized. Assessment What has happened this shift: Received pt. sleeping in bed wrapped up in blankets at shift change. Pt. is irritable when assessing patient in the morning. Patient awakens for breakfast and takes medications without incident. Patient has been up a little more on the unit, and communicating his needs to several people instead of just the primary RN. Patient is complaining that he is cold and was told that Phil Castañeda would be providing a coat for patient. As reported by Dominique TIDWELL, patient sat in community room at snack time and picked up some unopened crackers and tossed them in the trash saying these crackers taste like bodies. Later in the afternoon patient fell asleep watching t.v. Patient appears paranoid when walking hallway to his room. SI/HI: Pt denies both. A/VH: +AH Sleep: 7.75 hrs, one nap today ADL's: Independent Group attendance: NA Were meds taken: Yes Any med S/E: None noted or observed. Mental Status Exam Appearance: Balding male, dressed in green unit attire. Teardrop tattoo under left eye. Eye contact: Fair Behavior: Isolates and socially withdrawn Speech: Soft spoken Mood: Anxious Affect: Flat Thought process: Delusional Thought Content: Crackers tasting like people and being cold. Cognition: A/O X3 Insight: Poor. Judgment: Poor. PRNs: None. Interventions Therapeutic interventions: Maintained a safe and therapeutic environment, ensured contract for safety, provided clear and simple instructions, attempted to orient to reality, monitored behaviors and need for intervention and redirection, provided active listening and positive encouragement, handwashing r/t +MRSA, and maintained Q 15min safety checks. Restraints/seclusion/emergency medication: N/A Justification: Patient continues to be disorganized and delusional. Pt unable to formulate a plan for food, [place] [facility] or clothing. Pts Clozaril will continue to be titrated to a therapeutic level.
[2021-06-30] MEDS: prazosin 1mg capsule PO SCH (20:13)
[2021-06-30] MEDS: clozapine 25mg tablet PO SCH (20:13)
[2021-06-30 20:17] VITALS: BP 112/81
--- NOTE | 2021-07-01 01:25 | NUR ---
Nursing Progress Note: Legal hold: 5250 Client on involuntary status for GD. Report received from Ravinder RN, with use of SBAR. Why are they here: Per 5150 pt. was unable to formulate plan for food, clothing, and detention since leaving [facility] and Care Pt. has been off of his medications, confused, and disorganized. Assessment: What has happened this shift: Patient seen in his room at shift change. He was irritated when this nurse tried talking to his roommate, and woke him up. Patient would not allow assessment. He was up later for snack time in the community room. There was a football game on, and was watching that. The patient made no delusional statements that were heard by this nurse. He was still irritable, but was compliant with HS meds, before returning to his room. SI/HI: Denies. A/VH: + AH Sleep: Refer to sleep assessment ADL's: Independent. 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 Were meds taken: Yes. Any med S/E: None observed or reported. Mental Status Exam Appearance: Disheveled, malodorous, but appropriately dressed. Eye contact: Direct. Behavior: Pleasant and cooperative, delusional, isolative, irritable. Speech: Normal rate, rhythm, and tone. Mood: Restless and anxious. Affect: Constricted. Thought process: Delusional. Thought Content: Meeting one's needs. Cognition: A/O X3, not completely to situation. Insight: Poor. Judgment: Poor. Interventions PRNs: None. Therapeutic interventions: 1:1 assessment, therapeutic communication, active listening, establishment of rapport, maintained a safe and therapeutic environment, ensured contract for safety, provided clear and simple instructions, medication administration/education/monitoring, handwashing and infection control education r/t +MRSA nares, encouragement to attend groups and participate in unit activities, behavior monitoring and intervention as needed; provided distraction, redirection, reality orientation, positive reinforcement, and maintained Q 15 minute safety checks. Restraints/seclusion/emergency medication: NA Justification: Patient continues to be disorganized and delusional. Pt unable to formulate a plan for food, detention or clothing. Pts Clozaril will continue to be titrated to a therapeutic level.
[2021-07-01 07:44] VITALS: BP 97/64
[2021-07-01] MEDS: amantadine 100 MG capsule PO SCH ×2 (07:57→20:36)
[2021-07-01] MEDS: lactobacillus rhamnosus 10,000 MMU CELLS/CAPSULE PO SCH ×2 (07:57→20:36)
[2021-07-01] MEDS: clozapine 100mg tablet PO SCH ×2 (07:57→20:36)
[2021-07-01] MEDS: docusate sod 100mg capsule PO SCH ×2 (07:57→20:37)
[2021-07-01] MEDS: pantoprazole 40mg Tablet.DR PO SCH (07:57)
--- NOTE | 2021-07-01 15:35 | NUR ---
Nursing Progress Note: Legal hold: 5250 Client on involuntary status for GD. Report received from GAVIOTA Mendez with use of SBAR. Why are they here: Per 5150 pt. was unable to formulate plan for food, clothing, and senior living since leaving [facility] and Care Pt. has been off of his medications, confused, and disorganized. Assessment What has happened this shift: Patient was asleep at change of shift and up before breakfast. RN sat with patient in the CR before breakfast arrived. RN gave patient his medication in yogurt. RN opened each packet and showed talked about each medication. Patient was pleasant and answered RN's questions easily. Patient denies Suicidal/Homicidal ideation. Patient states he always hears voices telling him things but denies command hallucinations. Patient did not show signs of paranoia today in front of RN. Patient in his room isolating most of the day. Patient comes out for meals. SI/HI: Pt denies both. A/VH: +AH, Sleep: nap ADL's: Independent Group attendance: No Were meds taken: Yes Any med S/E: None noted or observed. Mental Status Exam Appearance: Balding male, dressed in green unit attire. Teardrop tattoo under left eye. Eye contact: Good Behavior: Isolates Speech: Soft spoken Mood: Pleasant Affect: Flat Thought process: Linear as far as our conversation. Thought Content: Hearing voices Cognition: A/O X3 Insight: Poor. Judgment: Poor. PRNs: None. Interventions Therapeutic interventions: Maintained a safe and therapeutic environment, ensured contract for safety, provided clear and simple instructions, attempted to orient to reality, monitored behaviors and need for intervention and redirection, provided active listening and positive encouragement, handwashing r/t +MRSA, and maintained Q 15min safety checks. Restraints/seclusion/emergency medication: N/A Justification: Patient continues to be disorganized and delusional. Pt unable to formulate a plan for food, senior living or clothing. Pts Clozaril will continue to be titrated to a therapeutic level.
[2021-07-01 20:00] VITALS: BP 118/84
[2021-07-01] MEDS: clozapine 25mg tablet PO SCH (20:36)
[2021-07-01] MEDS: prazosin 1mg capsule PO SCH (20:37)
--- NOTE | 2021-07-02 01:30 | NUR ---
Nursing Progress Note: Kenneth Legal hold: 5250 Client on involuntary status for GD. Report received from Caridad MEEK with use of SBAR. Why are they here: Per 5150 pt. was unable to formulate plan for food, clothing, and alf since leaving [facility] and Care Pt. has been off of his medications, confused, and disorganized. Assessment What has happened this shift: Patient was up in the community room watching TV with peers. Pt states he hears voices all the time and we ask him the same question every day. He stated that he thinks he needs BP pills because he feels that he has too much oxygen in his blood and he talks a lot. Pt up for snacks and took all HS medications without issue and went to bed shortly after. SI/HI: Pt denies both. A/VH: +AH, Sleep: ADL's: Independent Group attendance: No Were meds taken: Yes Any med S/E: None noted or observed. Mental Status Exam Appearance: Balding male, dressed in green unit attire. Teardrop tattoo under left eye. Eye contact: Good Behavior: Isolates Speech: Soft spoken Mood: Pleasant Affect: Flat Thought process: Linear as far as our conversation. Thought Content: Hearing voices Cognition: A/O X3 Insight: Poor. Judgment: Poor. PRNs: None. Interventions Therapeutic interventions: Maintained a safe and therapeutic environment, ensured contract for safety, provided clear and simple instructions, attempted to orient to reality, monitored behaviors and need for intervention and redirection, provided active listening and positive encouragement, handwashing r/t +MRSA, and maintained Q 15min safety checks. Restraints/seclusion/emergency medication: N/A Justification: Patient continues to be disorganized and delusional. Pt unable to formulate a plan for food, alf or clothing. Pts Clozaril will continue to be titrated to a therapeutic level.
[2021-07-02 07:44] VITALS: BP 106/66
[2021-07-02] MEDS: pantoprazole 40mg Tablet.DR PO SCH (08:15)
[2021-07-02] MEDS: amantadine 100 MG capsule PO SCH ×2 (08:16→20:25)
[2021-07-02] MEDS: docusate sod 100mg capsule PO SCH ×2 (08:16→20:25)
[2021-07-02] MEDS: lactobacillus rhamnosus 10,000 MMU CELLS/CAPSULE PO SCH ×2 (08:16→20:25)
[2021-07-02] MEDS: clozapine 100mg tablet PO SCH ×2 (08:16→20:25)
--- NOTE | 2021-07-02 14:59 | NUR ---
DISCHARGE PLANNING Spoke to NAVARRO Headley Team, who reported the plan is for Kenneth to go to a hotel upon discharge. He reported Kenneth received an $11,000 inheritance recently and has likely blown through most of it. He does have a payee at [facility]. He reported Tu and Th are the days that [facility] is open to the public. He would need to discharge on one of those days to access his money for a hotel. BHAVANA Castanon
--- NOTE | 2021-07-02 17:28 | NUR ---
Nursing Progress Note: Legal hold: 5250 Client on involuntary status for GD. Report received from Vahe Ridley RN with use of SBAR. Why are they here: Per 5150 pt. was unable to formulate plan for food, clothing, and half-way since leaving [facility] and Care Pt. has been off of his medications, confused, and disorganized. Assessment What has happened this shift: Received patient while he was sleeping in bed. Patient awake at approximately 0710 and was drinking coffee in the Community Room. Patient reports he slept well but was hearing voices off and on throughout the night. Patient states I cant understand what they are telling me. 1:1 patient assessment completed. Patient pleasant and cooperative with taking medications ordered by MD. Attended this afternoon Group Meeting & participated. Patient is happy and singing for staff at entrance of the Observation Room this afternoon. Smiling. SI/HI: Pt denies both. A/VH: Pt reports Auditory Hallucinations but states I cant understand what they are telling me. Sleep: 7.75 hrs. sleep at night ADL's: Independent Group attendance: No Group meeting this morning; Attended Group Meeting this afternoon. Were meds taken: Yes, without hesitation. Any med S/E: None noted or observed. Mental Status Exam Appearance: Balding male, dressed in green unit attire. Teardrop tattoo under left eye. Eye contact: Good Behavior: Watching TV & laughing amongst peers. Speech: Soft spoken Mood: Pleasant Affect: Flat Thought process: Linear as far as our conversation. Thought Content: Hearing voices Cognition: A/O X3 Insight: Poor. Judgment: Poor. PRNs: None. Interventions Therapeutic interventions: Maintained a safe and therapeutic environment, ensured contract for safety, provided clear and simple instructions, attempted to orient to reality, monitored behaviors and need for intervention and redirection, provided active listening and positive encouragement, handwashing r/t +MRSA, and maintained Q 15min safety checks. Restraints/seclusion/emergency medication: N/A Justification: Patient continues to be disorganized and delusional. Pt unable to formulate a plan for food, half-way or clothing. Pts Clozaril will continue to be titrated to a therapeutic level
[2021-07-02 19:47] VITALS: BP 125/83
[2021-07-02] MEDS: prazosin 1mg capsule PO SCH (20:25)
[2021-07-02] MEDS: clozapine 25mg tablet PO SCH (20:25)
--- NOTE | 2021-07-03 02:43 | NUR ---
Nursing Progress Note: Kenneth Legal hold: 5250 Client on involuntary status for GD. Report received from Caridad Cotter RN with use of SBAR. Why are they here: Per 5150 pt. was unable to formulate plan for food, clothing, and half-way since leaving [facility] and Care Pt. has been off of his medications, confused, and disorganized. Assessment What has happened this shift: Received patient in bed lying down listening to headphones. States he is doing just fine and always hears voices. He then asks if this RN was his chinese teacher at [employer]. He denies SI/HI and doesnt have any needs at this time. Pt declined snacks and took all HS medications. Was noted to be singing in his room with headphones on shortly before bedtime. SI/HI: Pt denies both. A/VH: +AH Sleep: ADL's: Independent Group attendance: Were meds taken: Yes, without hesitation. Any med S/E: None noted or observed. Mental Status Exam Appearance: Balding male, dressed in green unit attire. Teardrop tattoo under left eye. Eye contact: Good Behavior: Watching TV & laughing amongst peers. Speech: Soft spoken Mood: Pleasant Affect: Flat Thought process: Linear as far as our conversation. Thought Content: Hearing voices Cognition: A/O X3 Insight: Poor. Judgment: Poor. PRNs: None. Interventions Therapeutic interventions: Maintained a safe and therapeutic environment, ensured contract for safety, provided clear and simple instructions, attempted to orient to reality, monitored behaviors and need for intervention and redirection, provided active listening and positive encouragement, handwashing r/t +MRSA, and maintained Q 15min safety checks. Restraints/seclusion/emergency medication: N/A Justification: Patient continues to be disorganized and delusional. Pt unable to formulate a plan for food, half-way or clothing. Pts Clozaril will continue to be titrated to a therapeutic level
[2021-07-03 07:38] VITALS: BP 126/79
[2021-07-03] MEDS: pantoprazole 40mg Tablet.DR PO SCH (08:35)
[2021-07-03] MEDS: amantadine 100 MG capsule PO SCH (08:35)
[2021-07-03] MEDS: lactobacillus rhamnosus 10,000 MMU CELLS/CAPSULE PO SCH (08:35)
[2021-07-03] MEDS: clozapine 100mg tablet PO SCH (08:35)
[2021-07-03] MEDS: docusate sod 100mg capsule PO SCH (08:35)
--- NOTE | 2021-07-03 09:09 | NUR ---
DISCHARGE PLANNING Kenneth reported he would like to go to the [facility] upon discharge. He has to get money from his payee, Maggie at [facility], in order to pay for the hotel. Assisted Kenneth with calling Maggie and left a message requesting $500. Asked Maggie to call senior medical writer back in order to know if Kenneth can get a check today. Contacted [facility] and requested follow up appointment and field based nursing. BHAVANA Castanon
[2021-07-03] MEDS ORDERED: hydrOXYzine 25 MG tablet PO ONE (10:00)
--- NOTE | 2021-07-03 12:23 | NUR ---
DISCHARGE PLAN Kenneth is getting discharged today. STAR Team will pick him up at 2 PM to take him to [facility] to get money for food and a check for [employer]. STAR Team will also assist him with picking up his meds at [facility] on [address]. Agent Licensing Clerk faxed his face sheet and labs for clozaril to [facility]. BHAVANA Castanon
[2021-07-03] MEDS ORDERED: PRAZ1CAP5 PO (13:09)
[2021-07-03] MEDS ORDERED: CLOZ100T13 PO ×2 (13:09)
[2021-07-03] MEDS ORDERED: OMEP40CA21 PO (13:09)
[2021-07-03] MEDS ORDERED: DOCU100C40 PO (13:09)
[2021-07-03] MEDS ORDERED: CLOZ25TA12 PO (13:09)
[2021-07-03] MEDS ORDERED: AMA100C PO (13:09)
--- NOTE | 2021-07-03 14:15 | NUR ---
Discharge Note: Informed by EMPERATRIZ Weston, that patient had discharge orders written by JAMES Sawyer, to discharge today at 1400 with the Star Team from [facility]. Patient denies SI/HI or AH/VH. Patient was upbeat and happy at initial onset this morning, and only improved with him being informed he would be discharged later today. Reviewed patient discharge information with him at approximately 1350. Patient has been here for more than 21 days, so MRSA swab obtained per policy & procedure and taken to the lab. Patient initially reported to [facility] with two wounds. One on his left knee was falling (abrasion), and one on his right buttocks (which he reported cleared after taking antibiotics). Abrasion on left knee was no longer present. There was no scar or wound located on his left knee. No pictures taken as all wounds have healed. Reviewed Firearms paperwork and patient declined a hearing at this time. Reviewed patient's next appointment is scheduled with: Psychiatrist Appointment: 07/08/21 at [address] [facility] [address] [place] [address] Interior Surface Insulation Worker: STAR Team Discharge Address: Lance Vargas [address] [place] [address] Transportation: STAR Team-pickling machine operator at 2 PM Patient given community crisis services information and National suicide hotline handout. Resources for education regarding mental illness: [address] [address] For urgent mental health crisis needs please contact Mobile Crisis Outreach Team Wednesday through Wednesday 8:30am to 5:00pm. . Mobile Crisis Outreach Team [address] [place] [phone] Urgent Out-patient Mental Health Services 365 Days A Year: [facility] [address] [place] [id number] Hours: Mon thru Wed 12pm-9pm Weekends 11am-9pm Patient declined to sign form regarding [facility] as well as other locations to call or go to if feeling as though he needs to contact services. Paperwork signed and attached to discharge packet completed, copies made, and put in patient's discharge folder to take when he leaves soon. [id number] STAR Team arrived to [facility] Lobby. Patient escorted to front lobby by [facility] staff, with belongings to meet the STAR Team in the lobby.
[2021-07-04] MEDS ORDERED: aripiprazole 400mg suspension ER syringe IM SCH ×2 (08:00)
== END 2021-07-03 15:11 | disposition home or self-care (01) | DRG 885 ==
LOC: ER 09:46 → ADULT MH 06-09 16:54
PROVIDERS: ADMIT Psychiatry & Neurology Psychiatry; ATTEND Psychiatry & Neurology Psychiatry
DX: F20.9 Schizophrenia, unspecified (principal); F15.20 Other stimulant dependence, uncomplicated; E87.1 Hypo-osmolality and hyponatremia; Z20.822 Contact with and (suspected) exposure to COVID-19; R74.01 Elevation of levels of liver transaminase levels; F17.210 Nicotine dependence, cigarettes, uncomplicated; I10 Essential (primary) hypertension; L02.421 Furuncle of right axilla; E87.6 Hypokalemia; M25.511 Pain in right shoulder; K21.9 Gastro-esophageal reflux disease without esophagitis; K59.00 Constipation, unspecified; R25.2 Cramp and spasm; F12.90 Cannabis use, unspecified, uncomplicated; F10.20 Alcohol dependence, uncomplicated; F32.A Depression, unspecified; F14.90 Cocaine use, unspecified, uncomplicated; Z98.890 Other specified postprocedural states; Z72.89 Other problems related to lifestyle; Z88.8 Allergy status to other drugs, medicaments and biological substances; Z79.899 Other long term (current) drug therapy; Z59.00 Homelessness unspecified; Z91.411 Personal history of adult psychological abuse; Z91.14 Patient's other noncompliance with medication regimen; Z71.6 Tobacco abuse counseling
CPT/HCPCS: 36415; 80053; 80061; 80305; 80320; 81003; 83036; 84443; 85025; 87081; 87635; 99285; C9803

== ENCOUNTER 2021-07-15 12:01 | Inpatient (IN) | payer MEDICARE, MEDICAID ==
[~2021-07-15] VITALS: Ht 180.3 cm; Wt 96.1 kg
[2021-07-15] MEDS: penicillin V potassium 500mg tablet PO SCH ×4 (02:00→20:00)
[~2021-07-15 12:01] MED LIST changes: -ARIP400S3 IM; +CLOZ100T13 PO; -CLOZ200T PO; +CLOZ25TA12 PO; -DOCU-28 PO; +DOCU100C40 PO; +PRAZ1CAP5 PO; -PRAZ2CAP2 PO
[2021-07-15 12:58] LABS: BASOPHILS % (AUTO) 0.2 % (0-1); EOSINOPHILS # (AUTO) 0.2 X10'3 (0-0.9); HEMATOCRIT 39.4 % (42.0-52.0); HEMOGLOBIN 13.3 g/dl (14.0-17.9); LYMPHOCYTES # (AUTO) 1.3 X10'3 (1.1-4.8); LYMPHOCYTES % (AUTO) 23.2 % (21-51); MEAN CORPUSCULAR HEMOGLOBIN 30.1 PG (27.0-31.0); MEAN CORPUSCULAR HGB CONC 33.6 g/dL (33.0-36.5); MEAN CORPUSCULAR VOLUME 89.4 FL (78-98); MEAN PLATELET VOLUME 7.5 FL (7.4-10.4); MONOCYTES # (AUTO) 0.8 X10'3 (0-0.9); MONOCYTES % (AUTO) 13.9 % (2-12); NEUTROPHILS # (AUTO) 3.3 X10'3 (1.8-7.7); NEUTROPHILS % (AUTO) 59.7 % (42-75); PLATELET COUNT 323 X10'3 (140-440); RED BLOOD COUNT 4.41 X10'6 (4.70-6.10); RED CELL DISTRIBUTION WIDTH 13.8 % (11.5-14.5); WHITE BLOOD COUNT 5.4 X10'3 (4.5-11.0)
[2021-07-15 13:12] LABS: ALANINE AMINOTRANSFERASE 38 U/L (12-78); ALBUMIN 3.6 G/DL (3.4-5.0); ALBUMIN/GLOBULIN RATIO 0.9 (1.1-1.5); ALKALINE PHOSPHATASE 65 IU/L (46-116); ANION GAP 8 (8-16); ASPARTATE AMINO TRANSFERASE 48 U/L (10-37); BILIRUBIN,TOTAL 0.5 MG/DL (0.1-1.0); BLOOD UREA NITROGEN 13 MG/DL (7-18); BUN/CREATININE RATIO 18.1 (5.4-32.0); CALCIUM 8.9 MG/DL (8.5-10.1); CHLORIDE 100 MMOL/L (99-107); CREATININE 0.72 MG/DL (0.60-1.10); GLUCOSE 94 MG/DL (70-104); POTASSIUM 3.2 MMOL/L (3.5-5.1); SODIUM 140 MMOL/L (135-145); TOTAL CARBON DIOXIDE 31.7 MMOL/L (24-32); TOTAL PROTEIN 7.8 G/DL (6.4-8.2); eGFR > 90 ML/MIN
[2021-07-15 13:22] LABS: ETHANOL < 0.010 GM/DL (0.0-0.010)
[2021-07-15] MEDS ORDERED: olanzapine 10mg tablet PO STA (13:27)
[2021-07-15] MEDS ORDERED: LORazepam 1 MG tablet PO ONE (13:30)
--- NOTE | 2021-07-15 14:11 | NUR ---
pt changed in green scrubs .pt follow commands .will cont to monitor.
[2021-07-15] MEDS ORDERED: CLOZ100T31 PO (15:46)
[2021-07-15] MEDS ORDERED: PRAZ1CAP5 PO (15:46)
[2021-07-15] MEDS ORDERED: CLOZ100T21 PO (15:46)
[2021-07-15] MEDS ORDERED: AMA100C PO (15:46)
[2021-07-15] MEDS ORDERED: DOCU-148 PO (15:46)
[2021-07-15] MEDS ORDERED: CLOZ50TA PO (15:46)
[2021-07-15] MEDS ORDERED: OMEP40CA21 PO (15:46)
--- NOTE | 2021-07-15 16:29 | NUR ---
Pt. asleep laying on his back, no distress noted.
[2021-07-15] MEDS ORDERED: potassium Cl 20 mEq SR tablet PO STA (16:46)
[2021-07-15 17:19] LABS: CLARITY,URINE SLIGHTLY CLOUDY (Clear); COLOR,URINE YELLOW (Yellow); GLUCOSE, URINE NEGATIVE (Neg); KETONES,URINE >=80 mg/dl (Neg); LEUKOCYTE ESTERASE ,URINE NEGATIVE (Neg); NITRITES, URINE NEGATIVE (Neg); OCCULT BLOOD,URINE NEGATIVE (Neg); PROTEIN,URINE TRACE mg/dl (Neg)
[2021-07-15 17:26] LABS: UA COLLECTION TYPE NON-SPECIFIED
[2021-07-15 17:28] LABS: MUCUS STRANDS MANY /LPF (Neg)
[2021-07-15 17:30] LABS: COARSE GRANULAR CAST 0-3 /LPF (NEGATIVE)
[2021-07-15 17:31] LABS: SQUAMOUS EPITHELIAL CELL,UR FEW /LPF (FEW)
[2021-07-15 17:33] LABS: BACTERIA,URINE 1+ /HPF (Neg); RBC,URINE 0-2 /HPF (0-2); WBC,URINE 0-4 /HPF (0-4)
[2021-07-15 17:34] LABS: TRANSITIONAL EPI CELLS,URINE FEW /HPF
[2021-07-15 17:39] LABS: URINE AMPHETAMINE SCREEN POSITIVE (Neg); URINE BARBITUATE SCREEN NEGATIVE (Neg); URINE BENZODIAZEPINES SCREEN NEGATIVE (Neg); URINE CANNABINOID SCREEN NEGATIVE (Neg); URINE COCAINE SCREEN NEGATIVE (Neg); URINE METHADONE SCREEN NEGATIVE (Neg); URINE OPIATE SCREEN POSITIVE (Neg); URINE PHENCYCLIDINE SCREEN NEGATIVE (Neg)
--- NOTE | 2021-07-15 19:00 | NUR ---
Patient has finished 100 percent of his dinner. He sits up on his bed. Patient exhibits anxiety, he tells this medical technical writer that he has generalized pain in his mouth secondary to dental pain. This medical technical writer will advise PA. This patient is cooperative. He denies S/I, H/I, or any hallucinations at this time.
[2021-07-15] MEDS ORDERED: ibuprofen tablet 400 MG TABLET PO PRN (20:05)
--- NOTE | 2021-07-15 21:17 | NUR ---
Motrin was added to patients Rx medications along with Pen VK after consult with PA. Patient is medication compliant.
[2021-07-15] MEDS: prazosin 1mg capsule PO SCH (21:41)
[2021-07-15] MEDS: clozapine 100mg tablet PO SCH (21:41)
[2021-07-15] MEDS: ibuprofen tablet 400 MG TABLET PO PRN (21:41)
[2021-07-15] MEDS: docusate sod 100mg capsule PO SCH (21:41)
[2021-07-15] MEDS: clozapine 25mg tablet PO SCH (21:42)
[2021-07-15] MEDS: amantadine 100 MG capsule PO SCH (21:59)
--- NOTE | 2021-07-15 22:48 | NUR ---
Patient is sleeping quietly, low fowlera position in bed. Frequent rounding for patient safety.
[2021-07-16] MEDS: penicillin V potassium 500mg tablet PO SCH ×4 (02:00→20:58)
--- NOTE | 2021-07-16 02:34 | NUR ---
Patient sleeps in mid fowlers position. His sleep is deep. He did not awaken to take his rx antibiotic.
--- NOTE | 2021-07-16 03:30 | NUR ---
Sleeping soundly, low fowlers position in bed.
--- NOTE | 2021-07-16 04:35 | NUR ---
Patient sleeping quietly. Good color. No distress.
--- NOTE | 2021-07-16 06:27 | NUR ---
Patient remains sleeping soundly. Vital signs WNL. Report to KEIRA Art.
--- NOTE | 2021-07-16 06:44 | NUR ---
Patient sleeping supine. No distress observed. Continue to monitor.
--- NOTE | 2021-07-16 08:10 | NUR ---
Patient's blood is being drawn. No distress observed. Continue to monitor.
[2021-07-16] MEDS: clozapine 100mg tablet PO SCH ×2 (08:16→21:03)
[2021-07-16] MEDS: amantadine 100 MG capsule PO SCH ×2 (08:16→20:59)
[2021-07-16] MEDS: pantoprazole 40mg Tablet.DR PO SCH (08:16)
[2021-07-16] MEDS: docusate sod 100mg capsule PO SCH ×2 (08:16→20:58)
--- NOTE | 2021-07-16 08:20 | NUR ---
RN sat patient up to awake him and give him his medication. Patient tolerated well. Patient started eating breakfast. Continue to monitor.
[2021-07-16] MEDS ORDERED: magnesium oxide 400mg tablet PO ONE (08:45)
[2021-07-16] MEDS: potassium Cl 20 mEq SR tablet PO SCH ×2 (09:03→20:57)
--- NOTE | 2021-07-16 09:05 | NUR ---
Gave patient his K+ and Mag. Continue to monitor.
--- NOTE | 2021-07-16 10:36 | NUR ---
Patient sleeping supine. No distress observed. Continue to monitor.
--- NOTE | 2021-07-16 12:20 | NUR ---
RN awoke patient and patient eating lunch. No distress observed. Contiue to monitor.
--- NOTE | 2021-07-16 14:17 | NUR ---
RN gave patient tissue to blow his nose which patient did. Patient then ambulatory, to BR, steady gait. No distress observed. Continue to monitor.
--- NOTE | 2021-07-16 15:56 | NUR ---
Patient has infection on right middle and left finger. +painful, +redness, +pussy drainage. RN advised Dr Lopez who stated he won't have time to see patient today but address this problem in morning rounds. RN will pass on to night baker to pass on to day shift.
--- NOTE | 2021-07-16 17:19 | NUR ---
Patient asked for hot coffee or cocoa. RN gave patient a cup of hot chocolate. Patient sitting on the edge of his bed eating. No distress observed. Continue to monitor.
--- NOTE | 2021-07-16 20:35 | NUR ---
Patient received sitting on edge of bed eating a snack. Nurse asked patient about his finger on his right hand. Patient unable to give a clear awnser
[2021-07-16] MEDS: prazosin 1mg capsule PO SCH (20:57)
[2021-07-16] MEDS: clozapine 25mg tablet PO SCH (20:59)
--- NOTE | 2021-07-16 22:30 | NUR ---
Patient self transferred to bathroom. Patient appears to be limping and holding on to wall as he walks. Patient stats he is unable to walk. When nurse ask why patient give uncoherent awnser.
--- NOTE | 2021-07-17 00:28 | NUR ---
Patient is sleeping upside down in bed. Patient keeps spitting in his sleep. Patient given 2nd antibiotic
[2021-07-17] MEDS: penicillin V potassium 500mg tablet PO SCH ×4 (02:14→21:23)
--- NOTE | 2021-07-17 02:27 | NUR ---
Patient limps over to bathroom and then returns to bed. Patient is sleeping right side up
--- NOTE | 2021-07-17 04:35 | NUR ---
Patient is currently resting quietly, patient continues to cough during the night
--- NOTE | 2021-07-17 05:59 | NUR ---
Patient has gotten up to go to the bathroom mutiply times. Patient is still uneven on his feet. Patient has coughed up mucus.
[2021-07-17] MEDS ORDERED: bacitracin 15gm ointment TP ONE (06:25)
[2021-07-17] MEDS ORDERED: TETanus/Pertussis (Acell)/Diphther VAC/PF (Tdap-Adult) 0.5ml syringe IMVAC ONE (06:25)
--- NOTE | 2021-07-17 06:30 | NUR ---
PATIENT RECEIVED SLEEPING IN BED AT SHIFT CHANGE. RESPIRATIONS EVEN, UNLABORED. NO S/S OF DISTRESS. MD NOTIFIED OF PUS, REDNESS, AND SWELLING TO PATIENTS RIGHT RING FINGER. WILL CONTINUE TO MONITOR.
[2021-07-17] MEDS: cephalexin 500mg capsule PO SCH ×4 (08:24→21:24)
[2021-07-17] MEDS: potassium Cl 20 mEq SR tablet PO SCH ×2 (08:25→21:26)
[2021-07-17] MEDS: pantoprazole 40mg Tablet.DR PO SCH (08:25)
[2021-07-17] MEDS: docusate sod 100mg capsule PO SCH ×2 (08:25→21:27)
--- NOTE | 2021-07-17 08:35 | NUR ---
PATIENT AWOKEN TO EAT BREAKFAST. HE WAS COMPLIANT [facility] MORNING ASSESSMENT AND SCHEDULED MEDICATIONS. HE IS OBSERVED SITTING IN BED EATING AT THIS TIME. NO COMPLAINTS OR S/S OF DISTRESS.
[2021-07-17] MEDS: clozapine 100mg tablet PO SCH ×2 (08:51→21:27)
[2021-07-17] MEDS: amantadine 100 MG capsule PO SCH ×2 (08:51→21:23)
--- NOTE | 2021-07-17 09:00 | NUR ---
WOUND CULTURE COLLECTED AND SENT TO LAB. RIGHT FINGER IRRIGATED WITH 500CC NORMAL SALINE. BACITRACIN OINTMNENT APPLIED, DRESSED WITH NON-ADHERENT AND GAUZE, AND TAPED IN PLACE PER ORDER. PATIENT TOLERATED WELL. WILL CONTINUE TO MONITOR.
--- NOTE | 2021-07-17 10:25 | NUR ---
PATIENT OBSERVED AMBULATING TO AND FROM THE RESTROOM WITH A SLIGHT LIMP. PATIENT RETREATED BACK TO BED. HE IS UNABLE TO EXPLAIN REASON BEHIND LIMPING. PATIENT HAS NO C/O PAIN AT THIS TIME. PATIENT NOTED LYING IN BED AT THIS TIME WITH NO S/S OF DISTRESS. WILL CONTINUE TO MONITOR.
--- NOTE | 2021-07-17 11:35 | NUR ---
PATIENT IS BEING EVAULATED BY [facility] PUBLIC GUARD[facility] AT THIS TIME.
--- NOTE | 2021-07-17 12:30 | NUR ---
PATIENT OBSERVED EATING LUNCH IN HIS ROOM. HE ENDORSED TO THIS WIRTER THAT HE IS "WANTS TO SLEEP FOR A LITTLE BIT". NO CHANGES AT THIS TIME.
--- NOTE | 2021-07-17 14:19 | NUR ---
RECEIVED PHONE CALL FROM [facility] OFFICE THAT PATIENT HAS BEEN ACCEPTED TO [facility]
--- NOTE | 2021-07-17 14:27 | NUR ---
PATIENT CONTINUES SLEEPING IN HIS ROOM AT THIS TIME. NO S/S OF DISTRESS. RESPIRATIONS EVEN, UNLABORED. WILL CONTINUE TO MONITOR.
[2021-07-17] MEDS: LORazepam 1 MG tablet PO PRN (14:44)
[2021-07-17 15:00] VITALS: BP 100/74
[2021-07-17] MEDS ORDERED: magnesium hydroxide 30ml (MOM) UD suspension PO PRN (15:20)
[2021-07-17] MEDS ORDERED: mag hydrox/Alum hydrox/simeth 30ml oral suspension PO PRN (15:20)
[2021-07-17] MEDS ORDERED: loperamide 2mg capsule PO PRN (15:20)
[2021-07-17] MEDS ORDERED: acetaminophen 325mg tablet PO PRN (15:20)
--- NOTE | 2021-07-17 15:22 | NUR ---
Patient admitted to [facility] on 5150 GD @ 1500. 5150 states Catarinajudith (payee) was concerned he could not utilize his funds and they were concerned he could not obtain food and clothing due to his mental illness. He has a wound to his right finger and states delusions regarding a nuclear submarine. He was oriented to the unit and took a shower at admission. Public guardian will serve 5 day notice for temporary conservatorship. He does have a history of LPS conservatorship.
[2021-07-17] MEDS: acetaminophen 325mg tablet PO PRN (18:00)
[2021-07-17] MEDS: prazosin 1mg capsule PO SCH (21:24)
[2021-07-17] MEDS: lactobacillus rhamnosus 10,000 MMU CELLS/CAPSULE PO SCH (21:25)
[2021-07-17] MEDS: clozapine 25mg tablet PO SCH (21:27)
[2021-07-18] MEDS: penicillin V potassium 500mg tablet PO SCH ×4 (02:00→20:36)
--- NOTE | 2021-07-18 05:12 | NUR ---
Nursing Progress Note: Legal hold: 5149/GD Client on involuntary status for GD Report received from GAVIOTA Cooper with use of SBAR: Reason for admit: Patient admitted to [facility] on 5150 GD @ 1500. 5150 states Genoveva (payee) was concerned he could not utilize his funds and they were concerned he could not obtain food and clothing due to his mental illness. He has a wound to his right finger and states delusions regarding a nuclear submarine. He was oriented to the unit and took a shower at admission. Public guardian will serve 5 day notice for temporary conservatorship. He does have a history of LPS conservatorship. What has happened this shift: Patient isolated in his room. Snacks taken in his room. Poor ADL's. Patient denies S/I, H/I, or any hallucinations. Patient is medication compliant. He is cooperative and focused on sleep. Patient delusional at times. S/I, H/I: Denies. A/VH: Denies. Sleep: Will tally at 0500 hours. ADL's: Poor. Group attendance: No group on nights. Were meds taken: Patient is medication compliant. Any med S/E: None noted or reported. Mental Status Exam Appearance: Disheveled. Behavior: Isolative. Speech: Quiet. Mood: Quiet. Affect: Flat. Thought process: Delusional, poverty of thought. Thought Content: Meeting ones needs. Cognition: Oriented to person and place. Insight: Poor. Judgment: Poor. Interventions PRN's used: None. Therapeutic interventions: 1:1 assessment, establishment of rapport, therapeutic conversation, active listening, medication administration/education/monitoring, encouragement of personal hygiene, behavior monitoring and intervention as needed; reality orientation, distraction, redirection, limit setting, positive reinforcement, and Q 15 minute safety checks. Restraints/seclusion/emergency medication: N/A Justification of Continued Inpatient Treatment: Pt in need of stabilization with medication adjustment and monitoring in a safe and therapeutic environment. Addendum: 07/18/21 at 4023 by Asad Qiunonez RN Patient is on T Con status.
[2021-07-18 08:00] LABS: BASOPHILS % (AUTO) 0.5 % (0-1); EOSINOPHILS # (AUTO) 0.1 X10'3 (0-0.9); EOSINOPHILS % (AUTO) 3.2 % (0-6); HEMATOCRIT 36.8 % (42.0-52.0); HEMOGLOBIN 12.4 g/dl (14.0-17.9); LYMPHOCYTES # (AUTO) 1.9 X10'3 (1.1-4.8); LYMPHOCYTES % (AUTO) 44.4 % (21-51); MEAN CORPUSCULAR HEMOGLOBIN 30.4 PG (27.0-31.0); MEAN CORPUSCULAR HGB CONC 33.7 g/dL (33.0-36.5); MEAN CORPUSCULAR VOLUME 90.3 FL (78-98); MEAN PLATELET VOLUME 7.6 FL (7.4-10.4); MONOCYTES # (AUTO) 0.5 X10'3 (0-0.9); MONOCYTES % (AUTO) 11.1 % (2-12); NEUTROPHILS # (AUTO) 1.7 X10'3 (1.8-7.7); NEUTROPHILS % (AUTO) 40.8 % (42-75); PLATELET COUNT 322 X10'3 (140-440); RED BLOOD COUNT 4.07 X10'6 (4.70-6.10); WHITE BLOOD COUNT 4.2 X10'3 (4.5-11.0)
[2021-07-18 08:25] LABS: ALANINE AMINOTRANSFERASE 16 U/L (12-78); ALBUMIN 2.6 G/DL (3.4-5.0); ALBUMIN/GLOBULIN RATIO 0.7 (1.1-1.5); ANION GAP 5 (8-16); ASPARTATE AMINO TRANSFERASE 18 U/L (10-37); BILIRUBIN,TOTAL 0.2 MG/DL (0.1-1.0); BLOOD UREA NITROGEN 9 MG/DL (7-18); BUN/CREATININE RATIO 11.1 (5.4-32.0); CALCIUM 8.3 MG/DL (8.5-10.1); CHLORIDE 108 MMOL/L (99-107); CHOLESTEROL 110 MG/DL (0-200); CREATININE 0.81 MG/DL (0.60-1.10); GLUCOSE 103 MG/DL (70-104); POTASSIUM 4.6 MMOL/L (3.5-5.1); SODIUM 143 MMOL/L (135-145); TOTAL CARBON DIOXIDE 29.6 MMOL/L (24-32); TOTAL PROTEIN 6.2 G/DL (6.4-8.2); eGFR > 90 ML/MIN
[2021-07-18 08:26] LABS: CHOL/HDL RATIO 3.7 (0.00-4.99); HDL CHOLESTEROL 30 MG/DL (35-60); LDL CHOLESTEROL 62 MG/DL (50-100); TRIGLYCERIDES 108 MG/DL (20-135)
[2021-07-18] MEDS: cephalexin 500mg capsule PO SCH ×4 (08:32→20:36)
[2021-07-18] MEDS: amantadine 100 MG capsule PO SCH ×2 (08:32→20:35)
[2021-07-18] MEDS: pantoprazole 40mg Tablet.DR PO SCH (08:32)
[2021-07-18] MEDS: potassium Cl 20 mEq SR tablet PO SCH ×2 (08:32→20:35)
[2021-07-18] MEDS: docusate sod 100mg capsule PO SCH ×2 (08:32→20:35)
[2021-07-18] MEDS: lactobacillus rhamnosus 10,000 MMU CELLS/CAPSULE PO SCH ×2 (08:32→20:35)
[2021-07-18] MEDS: clozapine 100mg tablet PO SCH (08:32)
[2021-07-18 08:50] LABS: ALKALINE PHOSPHATASE 59 IU/L (46-116)
--- NOTE | 2021-07-18 10:41 | NUR ---
Kenneth is a 50 y/o single male who was placed on 5150 for grave disability. [facility] called [place] [facility] due to concerns about Kenneth. Kenneth presented as tearful and paranoid and stated there was some "weird shit" going on and that he didn't want to return to his hotel. He stated he was at [facility] to get money, however, did not know how he would spend it and stated, "I need to escape". He was unable to formulate a viable plan for food, clothing, or correction. Kenneth has a long history of mental health treatment with [facility] including a history of conservatorship. [facility] and remained at [facility] until 05/17/21. He had AWOL'd and stopped taking his medications and was given a 30 day notice. He was admitted to [facility] 06/09/21-07/03/21. He discharged to a hotel room with the help of [facility]. He was monitored closely and refused medication with led to further decompensation. [facility] has referred for [facility] Conservatorship. BHAVANA Castanon Addendum: 07/18/21 at 1041 by Lorelei ADAMSON Amended: Links added.
--- NOTE | 2021-07-18 17:19 | NUR ---
Nursing Progress Note: Legal hold: T-con Client on involuntary status for GD Report received from Kena MEEK with use of SBAR: Reason for admit: Patient admitted to [facility] on 5150 GD @ 1500. 5150 states Genoveva (payee) was concerned he could not utilize his funds and they were concerned he could not obtain food and clothing due to his mental illness. He has a wound to his right finger and states delusions regarding a nuclear submarine. He was oriented to the unit and took a shower at admission. Public guardian will serve 5 day notice for temporary conservatorship. He does have a history of LPS conservatorship. What has happened this shift: Patient resting quietly in bed at the start of the shift. Awakened for breakfast. Eats in the community room and interacts appropriately with staff and peers. Speech is disorganized and unclear at times, but he is able to make his need known. Answers direct questions only. Cooperative with 1:1 assessment and medications. Appears distracted and possibly internally occupied. Continues on Keflex for right finger wound and PCN for dental carries. No ASE noted at this time. In the afternoon the patient pulls the dressing off. Spends time watching TV in the community room. S/I, H/I: Denies. A/VH: Denies. Appears internally occupied. Sleep: 2 hours in the morning. Naps off and on throughout the day. ADL's: Independent Group attendance: NA Were meds taken: Yes Any med S/E: None observed or reported. Mental Status Exam Appearance: Younger looking man with short hair, somewhat disheveled, obvious dental carries/ broken teeth, wearing green unit scrubs. Behavior: Cooperative Speech: Disorganized, unclear at times, soft, minimal Mood: Ok. Affect: Flat Thought process: Disorganized Thought Content: Appears internally occupied. Cognition: A/O x2 to self and place. Insight: Poor. Judgment: Poor. Interventions PRN's used: None. Therapeutic interventions: 1:1 assessment, establishment of rapport, therapeutic conversation, active listening, medication administration/education/monitoring, encouragement of personal hygiene, behavior monitoring and intervention as needed; reality orientation, distraction, redirection, limit setting, positive reinforcement, and Q 15 minute safety checks. Restraints/seclusion/emergency medication: N/A Justification of Continued Inpatient Treatment: Pt in need of stabilization with medication adjustment and monitoring in a safe and therapeutic environment.
[2021-07-18] MEDS: clozapine 25mg tablet PO SCH ×2 (20:35→20:36)
[2021-07-19] MEDS: penicillin V potassium 500mg tablet PO SCH ×2 (01:56→08:00)
--- NOTE | 2021-07-19 03:00 | NUR ---
Nursing Progress Note: Legal hold: T-con Client on involuntary status for GD Report received from KEIRA Cooper with use of SBAR: Reason for admit: Patient admitted to [facility] on 5150 GD @ 1500. 5150 states Genoveva (payee) was concerned he could not utilize his funds and they were concerned he could not obtain food and clothing due to his mental illness. He has a wound to his right finger and states delusions regarding a nuclear submarine. He was oriented to the unit and took a shower at admission. Public guardian will serve 5 day notice for temporary conservatorship. He does have a history of LPS conservatorship. What has happened this shift: Patient up walking in the hallway and then in his room at the start of the shift. His speech is disorganized and unclear at times, but he is able to make his needs known. He is cooperative with 1:1 assessment and medications. He is pleasantly delusional and stated that last week he shrunk to 4 feet tall. He stated he got back to regular height by sitting in a green plastic bag. He laughed when he told the story. He does report some tenderness to his right 4th finger and to his feet when he walks. There is a blister with surrounding redness to distal right 4th finger (between PIP & DIP). He also has a healing blister to plantar area of left foot. Paronychia to left great toe (appears to be healing). Callous to plantar area right foot He continues on Keflex and Pen V K for skin wounds and dental caries. He denies upset stomach from the medications S/I, H/I: Denies. A/VH: Denies. Appears internally occupied. Delusions: He does have delusions stating he shrunk to 4 feet tall last week and got back to normal height by sitting in a green plastic bag. Sleep: asleep at the time of this note. He was easily awakened for his 0200 medication and went right back to sleep ADL's: Independent Group attendance: NA Were meds taken: Yes Any med S/E: None observed or reported. Mental Status Exam Appearance: Male pt, somewhat disheveled, obvious dental carries/ broken teeth, wearing green unit scrubs. Behavior: Cooperative Speech: Disorganized, unclear at times, soft. Mood: Ok. Affect: Flat Thought process: Disorganized Thought Content: His feet hurt sometimes when he walks Cognition: A/O x2 to self and situation. Insight: Poor. Judgment: Poor. Interventions PRN's used: None. Therapeutic interventions: 1:1 assessment, establishment of rapport, therapeutic conversation, active listening, medication administration/education/monitoring, encouragement of personal hygiene, behavior monitoring and intervention as needed; reality orientation, distraction, redirection, limit setting, positive reinforcement, and Q 15 minute safety checks. -Administer his multiple medications with food to avoid stomach upset -Dissolve the KDur pills prior to administration to help with him taking the large pills that may be difficult to swallow -Also can consider crushing his meds for ease of administration if too many to swallow -I inquired of the pharmacy if ok to co-administer the Culturelle (probiotic) and PenVK/Keflex at the same times (2000, 0800) or if they should be spaced apart. Per the pharmacist it is ok to co-administer them at the same times. -Encourage him to wear socks/slippers while walking around, and not go barefooted. -Motrin or analgesics as needed for pain Restraints/seclusion/emergency medication: N/A Justification of Continued Inpatient Treatment: Pt in need of stabilization with medication adjustment and monitoring in a safe and therapeutic environment.
[2021-07-19] MEDS: amantadine 100 MG capsule PO SCH ×2 (08:02→20:16)
[2021-07-19] MEDS: clozapine 100mg tablet PO SCH (08:02)
[2021-07-19] MEDS: cephalexin 500mg capsule PO SCH (08:02)
[2021-07-19] MEDS: docusate sod 100mg capsule PO SCH ×2 (08:02→20:17)
[2021-07-19] MEDS: pantoprazole 40mg Tablet.DR PO SCH (08:02)
[2021-07-19] MEDS: lactobacillus rhamnosus 10,000 MMU CELLS/CAPSULE PO SCH ×2 (08:02→20:17)
[2021-07-19] MEDS: potassium Cl 20 mEq SR tablet PO SCH ×2 (08:02→20:16)
[2021-07-19 08:23] VITALS: BP 113/79
--- NOTE | 2021-07-19 09:52 | NUR ---
Critical lab: Lab called. Pt is positive MRSA in his nostrils and his finger wound. Paging hospitalist for new antibiotic orders.
--- NOTE | 2021-07-19 17:11 | NUR ---
Nursing Progress Note: Legal hold: T-con Client on involuntary status for GD Report received from Esther MEEK with use of SBAR Reason for admit: Patient admitted to [facility] on 5150 GD @ 1500. 5150 states Genoveva (payee) was concerned he could not utilize his funds and they were concerned he could not obtain food and clothing due to his mental illness. He has a wound to his right finger and states delusions regarding a nuclear submarine. He was oriented to the unit and took a shower at admission. Public guardian will serve 5 day notice for temporary conservatorship. He does have a history of LPS conservatorship. What has happened this shift: Patient is resting quietly in bed at the start of the shift. Cooperative with medications and 1:1 assessment. Eats breakfast in the community room and interacts appropriately with staff and peers. Dressing not in place to right finger so new dressing is placed. Scant amount of purulent drainage. Continues to appear red but no swelling is noted. Denies pain at rest but wound is tender to touch. Speech continues to be disorganized and mumbled but he is able to make his needs known. After breakfast patient returns to his room and is noted napping. Eats lunch in the community room and takes another short nap. Spends time watching TV in the community room. Takes the bandage off his finger. Patient is reminded that his wound is positive for MRSA so he needs to keep it on. Patient is cooperative with having another dressing placed. S/I, H/I: Denies. A/VH: Denies. Appears internally occupied. Sleep: Naps off and on ADL's: Independent Group attendance: NA Were meds taken: Yes Any med S/E: None observed or reported. Mental Status Exam Appearance: Younger looking man with short hair, somewhat disheveled, obvious dental carries/ broken teeth, wearing green unit scrubs. Behavior: Cooperative Speech: Disorganized, unclear at times, soft, minimal Mood: OK. Affect: Flat Thought process: Disorganized Thought Content: Appears internally occupied. Cognition: A/O x2 to self and place. Insight: Poor. Judgment: Poor. Interventions PRN's used: None. Therapeutic interventions: 1:1 assessment, establishment of rapport, therapeutic conversation, active listening, medication administration/education/monitoring, encouragement of personal hygiene, behavior monitoring and intervention as needed; reality orientation, distraction, redirection, limit setting, positive reinforcement, and Q 15 minute safety checks. Restraints/seclusion/emergency medication: N/A Justification of Continued Inpatient Treatment: Pt in need of stabilization with medication adjustment and monitoring in a safe and therapeutic environment.
[2021-07-19] MEDS ORDERED: clozapine 25mg tablet PO PRN (17:50)
[2021-07-19 19:36] VITALS: BP 99/61
[2021-07-19] MEDS: clozapine 25mg tablet PO SCH ×2 (20:17→20:19)
[2021-07-19] MEDS: sulfamethoxazole/trimethoprim DS (800/160mg) tablet PO SCH (20:19)
[2021-07-19] MEDS: acetaminophen 325mg tablet PO PRN (20:20)
--- NOTE | 2021-07-20 02:58 | NUR ---
Nursing Progress Note: Kenneth Legal hold: T-con Client on involuntary status for GD Report received from Kenneth MEEK with use of SBAR Reason for admit: Patient admitted to [facility] on 5150 GD @ 1500. 5150 states Genoveva (payee) was concerned he could not utilize his funds and they were concerned he could not obtain food and clothing due to his mental illness. He has a wound to his right finger and states delusions regarding a nuclear submarine. He was oriented to the unit and took a shower at admission. Public guardian will serve 5 day notice for temporary conservatorship. He does have a history of LPS conservatorship. What has happened this shift: Patient in the shower and then resting in bed. Pt calm and cooperative with care and states he always hears voices. Pt complaining about right forearm pain (3/10) dull achy pain, PRN Tylenol given with good effect. Dressing placed on right finger, appears red but no drainage noted. Pt up for snacks and took all HS medications. S/I, H/I: Denies. A/VH: Denies. Appears internally occupied. Sleep: ADL's: Independent Group attendance: NA Were meds taken: Yes Any med S/E: None observed or reported. Mental Status Exam Appearance: Younger looking man with short hair, somewhat disheveled, obvious dental carries/ broken teeth, wearing green unit scrubs. Behavior: Cooperative Speech: Disorganized, unclear at times, soft, minimal Mood: OK. Affect: Flat Thought process: Disorganized Thought Content: Appears internally occupied. Cognition: A/O x2 to self and place. Insight: Poor. Judgment: Poor. Interventions PRN's used: None. Therapeutic interventions: 1:1 assessment, establishment of rapport, therapeutic conversation, active listening, medication administration/education/monitoring, encouragement of personal hygiene, behavior monitoring and intervention as needed; reality orientation, distraction, redirection, limit setting, positive reinforcement, and Q 15 minute safety checks. Restraints/seclusion/emergency medication: N/A Justification of Continued Inpatient Treatment: Pt in need of stabilization with medication adjustment and monitoring in a safe and therapeutic environment.
[2021-07-20 08:06] VITALS: BP 105/72
[2021-07-20] MEDS: docusate sod 100mg capsule PO SCH ×2 (08:07→20:05)
[2021-07-20] MEDS: potassium Cl 20 mEq SR tablet PO SCH ×2 (08:08→20:07)
[2021-07-20] MEDS: pantoprazole 40mg Tablet.DR PO SCH (08:08)
[2021-07-20] MEDS: lactobacillus rhamnosus 10,000 MMU CELLS/CAPSULE PO SCH ×2 (08:08→20:05)
[2021-07-20] MEDS: sulfamethoxazole/trimethoprim DS (800/160mg) tablet PO SCH ×2 (08:08→20:05)
[2021-07-20] MEDS: amantadine 100 MG capsule PO SCH ×2 (08:08→20:05)
[2021-07-20] MEDS: clozapine 100mg tablet PO SCH (08:12)
--- NOTE | 2021-07-20 17:18 | NUR ---
Nursing Progress Note: Legal hold: 5150 Client on involuntary status for GD Report received from KEIRA Santana with use of SBAR Reason for admit: Patient admitted to [facility] on 5150 GD @ 1500. 5150 states Genoveva (payee) was concerned he could not utilize his funds and they were concerned he could not obtain food and clothing due to his mental illness. He has a wound to his right finger and states delusions regarding a nuclear submarine. He was oriented to the unit and took a shower at admission. Public guardian will serve 5 day notice for temporary conservatorship. He does have a history of LPS conservatorship. What has happened this shift: Received patient while he was sleeping in bed. Patient arose about 0715 and requested coffee, then ambulated to the Community Room to wait for breakfast. Patient reports he is Feeling good today. Patient pleasant and interactive with peers and staff members. Patient sits alone in the Community Room for meals. Patient removed dressing from his right ring finger. Patient reports It no longer needs a dressing. Photo taken of patients right ring finger per Policy & Procedure, then patient refused Bacitracin and a new dressing applied at this time. Patient was observed and overheard responding to internal stimuli by speaking aeb speaking quietly to himself in his room and in the Community Room while sitting alone. Patient self isolates in his room and sleeps most of the day. Patient goes to the Community Room for meals and snacks. S/I, H/I: Denies. A/VH: Denies. Responding to internal aeb talking to self while in his room and sitting alone in the Community Room. Sleep: 7.75 hours ADL's: Independent Group attendance: No Group Attendance Held Today Were meds taken: Yes, with slight hesitation. Explained importance of K-Dur & Septra then patient took medications. Any med S/E: None observed or reported. Mental Status Exam Appearance: Medium Height male with short brown hair, obvious dental carries/ broken teeth, wearing green unit scrubs. Behavior: Cooperative, Quiet, Respectful Speech: Difficult to understand at times secondary to speaking downward & not making eye contact. Mood: Feeling Good Today. Affect: Apprehensive & Despondent. Thought process: Poverty of Thought. Thought Content: Appears internally pre-occupied. Cognition: A/O x2 to self and place. Insight: Poor. Judgment: Poor. Interventions PRN's used: None. Therapeutic interventions: 1:1 assessment, establishment of rapport, therapeutic conversation, active listening, medication administration/education/monitoring, encouragement of personal hygiene, behavior monitoring and intervention as needed; reality orientation, distraction, redirection, limit setting, positive reinforcement, and Q 15 minute safety checks. Restraints/seclusion/emergency medication: N/A Justification of Continued Inpatient Treatment: Pt in need of stabilization with medication adjustment and monitoring in a safe and therapeutic environment.
[2021-07-20] MEDS: LORazepam 1 MG tablet PO PRN (18:41)
[2021-07-20] MEDS: ibuprofen tablet 400 MG TABLET PO PRN (18:42)
[2021-07-20 19:26] VITALS: BP 99/53
[2021-07-20] MEDS: clozapine 25mg tablet PO SCH ×2 (20:05→20:06)
--- NOTE | 2021-07-21 03:08 | NUR ---
Nursing Progress Note: Kenneth Legal hold: 5150 Client on involuntary status for GD Report received from KEIRA Cooper with use of SBAR Reason for admit: Patient admitted to [facility] on 5150 GD @ 1500. 5150 states Genoveva (payee) was concerned he could not utilize his funds and they were concerned he could not obtain food and clothing due to his mental illness. He has a wound to his right finger and states delusions regarding a nuclear submarine. He was oriented to the unit and took a shower at admission. Public guardian will serve 5 day notice for temporary conservatorship. He does have a history of LPS conservatorship. What has happened this shift: Received patient lying in bed resting at change of shift. Pt complained of HOLGUIN 10/10 and that his eye sockets hurt. Motrin and Ativan 1MG given with good effect. Pt states he always hears voices. Pt up for snacks and given HS medications without issue and said thank you to this RN. Later, Pt states his HOLGUIN is much better and that the Motrin helped. Pt noted to be in bed shortly after med pass. S/I, H/I: Denies. A/VH: Denies. Responding to internal stimuli Sleep: ADL's: Independent Group attendance: NA Were meds taken: Yes Any med S/E: None observed or reported. Mental Status Exam Appearance: Medium Height male with short brown hair, obvious dental carries/ broken teeth, wearing green unit scrubs. Behavior: Cooperative, Quiet, Respectful Speech: Difficult to understand at times secondary to speaking downward & not making eye contact. Mood: Feeling Good Today. Affect: Apprehensive & Despondent. Thought process: Poverty of Thought. Thought Content: Appears internally pre-occupied. Cognition: A/O x2 to self and place. Insight: Poor. Judgment: Poor. Interventions PRN's used: None. Therapeutic interventions: 1:1 assessment, establishment of rapport, therapeutic conversation, active listening, medication administration/education/monitoring, encouragement of personal hygiene, behavior monitoring and intervention as needed; reality orientation, distraction, redirection, limit setting, positive reinforcement, and Q 15 minute safety checks. Restraints/seclusion/emergency medication: N/A Justification of Continued Inpatient Treatment: Pt in need of stabilization with medication adjustment and monitoring in a safe and therapeutic environment.
[2021-07-21 08:00] VITALS: BP 117/81
[2021-07-21] MEDS: potassium Cl 20 mEq SR tablet PO SCH ×2 (08:02→20:34)
[2021-07-21] MEDS: docusate sod 100mg capsule PO SCH ×2 (08:02→20:00)
[2021-07-21] MEDS: lactobacillus rhamnosus 10,000 MMU CELLS/CAPSULE PO SCH ×2 (08:02→20:35)
[2021-07-21] MEDS: clozapine 100mg tablet PO SCH (08:02)
[2021-07-21] MEDS: pantoprazole 40mg Tablet.DR PO SCH (08:02)
[2021-07-21] MEDS: sulfamethoxazole/trimethoprim DS (800/160mg) tablet PO SCH ×2 (08:02→20:36)
[2021-07-21] MEDS: amantadine 100 MG capsule PO SCH ×2 (08:02→20:36)
--- NOTE | 2021-07-21 14:43 | NUR ---
5250 HEARING UPHELD FOR GD
--- NOTE | 2021-07-21 14:47 | NUR ---
Initial: Pt admit dx R ring finger abscess, L great toe paronychia, acute psychosis and methamphetamine abuse per EMR. PO intake ~93% of regular meals, meeting estimated nutritional needs. LBM 07/20, receiving routine colace. No nutrition intervention at this time. Will continue to monitor. Recommendations: 1. Continue regular diet as tolerated 2. Bowel care per Rx 3. Weekly wt Addendum: 07/21/21 at [address] Amended: Links added. Addendum: 07/21/21 at [address] HERMILA has reviewed and approves of above note.
--- NOTE | 2021-07-21 17:25 | NUR ---
Nursing Progress Note: Kenneth Grey Legal hold: 5150 Client on involuntary status for GD Report received from Yamileth MEEK with use of SBAR Reason for admit: Patient admitted to [facility] on 5150 GD. 5150 states Genoveva (payee) was concerned he could not utilize his funds and they were concerned he could not obtain food and clothing due to his mental illness. He has a wound to his right finger and states delusions regarding a nuclear submarine. Public guardian will serve 5 day notice for temporary conservatorship. He does have a history of LPS conservatorship. What has happened this shift: Pt. received sleeping in his room, woke to receive his medication; he presents as delusional stating I cant take these, they change the shape of my face Passenger Vessel Chef educated pt. at length the importance of K+ r/t cardiac health, and reassured pt. we are monitoring him at all times, pt. did comply. 1;1 assessment completed at the bedside. Pt. reports he was admitted because I was sick he denies SI, HI, AH, VH, but presents as guarded and suspicious. Pt. has no plans re discharge. Pt. ate his meals in the dining room, often sitting alone or in a chair by himself. Pt. spent a lot of time napping today and did not engage socially with cohorts. He was provided with care to his Rt. 4th phalange d/t open area and +MRSA culture, pt. has no c/o pain, no s/sx of infection. Pt. later reported his mouth taste like metal; report writer encouraged dental hygiene and additional supplies provided. S/I, H/I: Denies. A/VH: Denies Sleep: Naps intermittently ADL's: Independent Group attendance: No Were meds taken: Yes, hesitation with K+ Any med S/E: None observed or reported. Mental Status Exam Appearance: Male appearing older than his age, disheveled, dental carries/broken teeth, wearing green scrubs. Behavior: Cooperative, suspicious Speech: Soft spoken, mumbles Mood: Im Ok Affect: Flat Thought process: Disorganized Thought Content: Appears internally occupied. Cognition: A/O x2 Insight: Poor. Judgment: Poor. Interventions PRN's used: None. Therapeutic interventions: 1:1 assessment, establishment of rapport, therapeutic conversation, active listening, medication administration/education/monitoring, encouragement of personal hygiene, behavior monitoring and intervention as needed; reality orientation, distraction, redirection, limit setting, positive reinforcement, and Q 15 minute safety checks. Restraints/seclusion/emergency medication: N/A Justification of Continued Inpatient Treatment: Pt in need of stabilization with medication adjustment and monitoring in a safe and therapeutic environment.
[2021-07-21 20:27] VITALS: BP 103/72
[2021-07-21] MEDS: clozapine 25mg tablet PO SCH ×2 (20:36→20:37)
--- NOTE | 2021-07-22 03:03 | NUR ---
Nursing Progress Note: Legal hold: 5150 Client on involuntary status for GD Report received from Kenneth MEEK with use of SBAR Reason for admit: Patient admitted to [facility] on 5150 GD. 5150 states Genoveva (payee) was concerned he could not utilize his funds and they were concerned he could not obtain food and clothing due to his mental illness. He has a wound to his right finger and states delusions regarding a nuclear submarine. Public guardian will serve 5 day notice for temporary conservatorship. He does have a history of LPS conservatorship. What has happened this shift: Pt. Pt lying in bed awake in the dark at start of shift. Presents as guarded and suspicious. Isolated to room all shift came out only briefly for snack. When given meds he took the two Potassiums, refused all other medications said "I can't take those they are wrong." Explained calmly and at length that these medications were ordered by his Doctor and he needed to take them tonight and talk to the Doctor tomorrow if he wanted to make a change. Pt finally took the rest of his medications. He denies SI, HI, AH, VH, not observed responding to internal stimuli. S/I, H/I: Denies. A/VH: Denies Sleep: asleep at this time ADL's: Independent Group attendance: NA Were meds taken: Yes, took K+ then hesitation for rest of medication Any med S/E: None observed or reported. Mental Status Exam Appearance: Male appearing older than his age, disheveled, dental carries/broken teeth, wearing green scrubs. Behavior: suspicious Speech: Soft spoken, mumbles Mood: Im Ok Affect: Flat Thought process: Disorganized Thought Content: Appears internally occupied. Cognition: A/O x2 Insight: Poor. Judgment: Poor. Interventions PRN's used: None. Therapeutic interventions: 1:1 assessment, establishment of rapport, therapeutic conversation, active listening, medication administration/education/monitoring, encouragement of personal hygiene, behavior monitoring and intervention as needed; reality orientation, distraction, redirection, limit setting, positive reinforcement, and Q 15 minute safety checks. Restraints/seclusion/emergency medication: N/A Justification of Continued Inpatient Treatment: Pt in need of stabilization with medication adjustment and monitoring in a safe and therapeutic environment.
[2021-07-22] MEDS: lactobacillus rhamnosus 10,000 MMU CELLS/CAPSULE PO SCH ×2 (08:03→20:37)
[2021-07-22] MEDS: clozapine 100mg tablet PO SCH (08:03)
[2021-07-22] MEDS: docusate sod 100mg capsule PO SCH ×2 (08:03→20:37)
[2021-07-22] MEDS: sulfamethoxazole/trimethoprim DS (800/160mg) tablet PO SCH ×2 (08:04→20:37)
[2021-07-22] MEDS: pantoprazole 40mg Tablet.DR PO SCH (08:04)
[2021-07-22] MEDS: amantadine 100 MG capsule PO SCH ×2 (08:04→20:37)
[2021-07-22] MEDS: potassium Cl 20 mEq SR tablet PO SCH ×2 (08:04→20:38)
[2021-07-22 08:50] VITALS: BP 108/74
--- NOTE | 2021-07-22 17:33 | NUR ---
Nursing Progress Note: Legal hold: 5150 Client on involuntary status for GD Report received from GAVIOTA Ridley with use of SBAR Reason for admit: Patient admitted to [facility] on 5150 GD. 5150 states Genoveva (payee) was concerned he could not utilize his funds and they were concerned he could not obtain food and clothing due to his mental illness. He has a wound to his right finger and states delusions regarding a nuclear submarine. Public guardian will serve 5 day notice for temporary conservatorship. He does have a history of LPS conservatorship. What has happened this shift: Received patient while he was sitting in the dining room drinking coffee. Patient states I feel better every day. Patient was sitting in the Community Room eating breakfast across from another male patient who started to cry. Kenneth asked the patient Are you okay? The other male patient shook his head no, then Kenneth said Well, let me know if I can help you out. 1:1 Patient Assessment & Patient Interview completed in patients room bedside. Patient reports that he is hearing voices, I hear the same voices that Rosita always heard. Kenneth took his medications without hesitation. Encouraged patient to go to the morning Group Meeting, but patient declined and slept the entire morning until lunchtime, and again in the afternoon slept. Patient did not attend the afternoon Group Meeting either. Patient attended meals & snacks in the Community Room. S/I, H/I: Denies. A/VH: Positive AH Patient reports I am hearing the same voices that Rosita always heart. Sleep: 7.50 hours. ADL's: Independent Group attendance: Did not attend morning & afternoon Group Meeting. Were meds taken: Yes, explained the reasons for all of his medications, then patient took without hesitation. Any med S/E: None observed or reported. Mental Status Exam Appearance: Male with shaved head with brown hair growing back, wearing green scrubs. Eye Contact: Looks down most of the time when communicating. Behavior: Cooperative. Kind to others. Speech: Soft spoken. Mood: I feel better every day. Affect: Matter of Fact. Thought process: Disorganized Thought Content: Poverty of Thought Cognition: A/O x3 Insight: Poor. Judgment: Poor. Interventions PRN's used: None. Therapeutic interventions: 1:1 assessment, establishment of rapport, therapeutic conversation, active listening, medication administration/education/monitoring, encouragement of personal hygiene, behavior monitoring and intervention as needed; reality orientation, distraction, redirection, limit setting, positive reinforcement, and Q 15 minute safety checks. Restraints/seclusion/emergency medication: N/A Justification of Continued Inpatient Treatment: Pt in need of stabilization with medication adjustment and monitoring in a safe and therapeutic environment.
[2021-07-22 19:52] VITALS: BP 130/84
[2021-07-22] MEDS: clozapine 25mg tablet PO SCH ×2 (20:38)
--- NOTE | 2021-07-23 02:20 | NUR ---
Nursing Progress Note: Kenneth Legal hold: 5150 Client on involuntary status for GD Report received from Kenneth MEEK with use of SBAR Reason for admit: Patient admitted to [facility] on 5150 GD. 5150 states Genoveva (payee) was concerned he could not utilize his funds and they were concerned he could not obtain food and clothing due to his mental illness. He has a wound to his right finger and states delusions regarding a nuclear submarine. Public guardian will serve 5 day notice for temporary conservatorship. He does have a history of LPS conservatorship. What has happened this shift: Received patient in his room resting on the bed. Pt states he is feeling pretty good and that he hears voices all the time. He complained of some mild pain left wrist but couldnt tell this RN what pain level. Pt noted to be in the community room for snack time and took all HS medications without issue. Pt went to bed shortly after med pass. S/I, H/I: Denies. A/VH: Positive AH Patient reports I hear the same voices everyday Sleep: ADL's: Independent Group attendance: Were meds taken: Yes, Any med S/E: None observed or reported. Mental Status Exam Appearance: Male with shaved head with brown hair growing back, wearing green scrubs. Eye Contact: Looks down most of the time when communicating. Behavior: Cooperative. Kind to others. Speech: Soft spoken. Mood: I feel better every day. Affect: Matter of Fact. Thought process: Disorganized Thought Content: Poverty of Thought Cognition: A/O x3 Insight: Poor. Judgment: Poor. Interventions PRN's used: None. Therapeutic interventions: 1:1 assessment, establishment of rapport, therapeutic conversation, active listening, medication administration/education/monitoring, encouragement of personal hygiene, behavior monitoring and intervention as needed; reality orientation, distraction, redirection, limit setting, positive reinforcement, and Q 15 minute safety checks. Restraints/seclusion/emergency medication: N/A Justification of Continued Inpatient Treatment: Pt in need of stabilization with medication adjustment and monitoring in a safe and therapeutic environment.
[2021-07-23 07:51] VITALS: BP 91/60
[2021-07-23] MEDS: docusate sod 100mg capsule PO SCH ×2 (08:06→20:11)
[2021-07-23] MEDS: lactobacillus rhamnosus 10,000 MMU CELLS/CAPSULE PO SCH ×2 (08:06→20:11)
[2021-07-23] MEDS: potassium Cl 20 mEq SR tablet PO SCH ×2 (08:06→20:11)
[2021-07-23] MEDS: pantoprazole 40mg Tablet.DR PO SCH (08:07)
[2021-07-23] MEDS: amantadine 100 MG capsule PO SCH ×2 (08:07→20:11)
[2021-07-23] MEDS: clozapine 100mg tablet PO SCH (08:07)
[2021-07-23] MEDS: sulfamethoxazole/trimethoprim DS (800/160mg) tablet PO SCH ×2 (08:07→20:11)
--- NOTE | 2021-07-23 17:06 | NUR ---
Nursing Progress Note: Kenneth Grey Legal hold: 5250 Client on involuntary status for GD Report received from Keyana MEEK with use of SBAR Reason for admit: Patient admitted to [facility] on 5150 GD . 5150 states Genoveva (payee) was concerned he could not utilize his funds and they were concerned he could not obtain food and clothing due to his mental illness. He has a wound to his right finger and states delusions regarding a nuclear submarine. Public guardian will serve 5 day notice for temporary conservatorship. He does have a history of LPS conservatorship. What has happened this shift: Pt. received sleeping in his room, woke to receive his medication; 1:1 assessment completed at the bedside Pt. is a poor historian re admission circumstance he reports I dont remember, he denies SI, HI, AH, VH, but pt. presents as delusional stating I dont want these, they do things to me re his AM potassium medications. His level of orientation is deficient reporting the year is 2027. When asked about future plans if discharged pt. reported I just want to drink a beer, no plans for housing or food were planned. Pt. ate his meals in the dining room with cohorts but remained isolated socially, often eating alone in a chair with his tray on his lap. Pt. spent most of shift napping. Coverage Specialist Rn encouraged pt. to sit in tv room and attend therapy; Pt. didnt participate. S/I, H/I: Denies. A/VH: Denies Sleep: Naps intermittently ADL's: Independent Group attendance: No Were meds taken: Yes, hesitation with K+ Any med S/E: None observed or reported. Mental Status Exam Appearance: Male appearing older than his age, disheveled, dental carries/broken teeth, wearing green scrubs. Behavior: Cooperative Speech: Soft spoken, mumbles Mood: Im doing okay Affect: Flat Thought process: Disorganized Thought Content: Sleeping Cognition: A/O x2 Insight: Poor. Judgment: Poor. Interventions PRN's used: None. Therapeutic interventions: 1:1 assessment, establishment of rapport, therapeutic conversation, active listening, medication administration/education/monitoring, encouragement of personal hygiene, behavior monitoring and intervention as needed; reality orientation, distraction, redirection, limit setting, positive reinforcement, and Q 15 minute safety checks. Restraints/seclusion/emergency medication: N/A Justification of Continued Inpatient Treatment: Pt in need of stabilization with medication adjustment and monitoring in a safe and therapeutic environment.
[2021-07-23] MEDS: clozapine 25mg tablet PO SCH ×2 (20:11→20:12)
[2021-07-23 20:36] VITALS: BP 112/75
--- NOTE | 2021-07-24 02:50 | NUR ---
Nursing Progress Note: Kenneth Grey Legal hold: 5250 Client on involuntary status for GD Report received from Nicanor MEEK with use of SBAR Reason for admit: Patient admitted to [facility] on 5150 GD . 5150 states Genoveva (payee) was concerned he could not utilize his funds and they were concerned he could not obtain food and clothing due to his mental illness. He has a wound to his right finger and states delusions regarding a nuclear submarine. Public guardian will serve 5 day notice for temporary conservatorship. He does have a history of LPS conservatorship. What has happened this shift: Pt. received watching TV in the community room with peers. States He feels really good today. When asked about AH pt stated he didnt have any today but then says they are right there in front of me. Pt up for snacks and took all HS medications (questioning his clozaril) stating they make him stay up all night. After medication administration pt stated thank you, I love you. Pt observed watching TV for a while and then eventually went to bed when the movie was over. S/I, H/I: Denies. A/VH: Denies Sleep: ADL's: Independent Group attendance: No Were meds taken: Yes Any med S/E: None observed or reported. Mental Status Exam Appearance: Male appearing older than his age, disheveled, dental carries/broken teeth, wearing green scrubs. Behavior: Cooperative Speech: Soft spoken, mumbles Mood: Im doing okay Affect: Flat Thought process: Disorganized Thought Content: Sleeping Cognition: A/O x2 Insight: Poor. Judgment: Poor. Interventions PRN's used: None. Therapeutic interventions: 1:1 assessment, establishment of rapport, therapeutic conversation, active listening, medication administration/education/monitoring, encouragement of personal hygiene, behavior monitoring and intervention as needed; reality orientation, distraction, redirection, limit setting, positive reinforcement, and Q 15 minute safety checks. Restraints/seclusion/emergency medication: N/A Justification of Continued Inpatient Treatment: Pt in need of stabilization with medication adjustment and monitoring in a safe and therapeutic environment.
[2021-07-24 08:00] VITALS: BP 111/73
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
[2021-07-24 08:05] LABS: BASOPHILS % (AUTO) 0.4 % (0-1); EOSINOPHILS # (AUTO) 0.1 X10'3 (0-0.9); EOSINOPHILS % (AUTO) 2.3 % (0-6); HEMATOCRIT 38.5 % (42.0-52.0); LYMPHOCYTES # (AUTO) 1.4 X10'3 (1.1-4.8); LYMPHOCYTES % (AUTO) 28.1 % (21-51); MEAN CORPUSCULAR HEMOGLOBIN 30.4 PG (27.0-31.0); MEAN CORPUSCULAR HGB CONC 33.8 g/dL (33.0-36.5); MEAN CORPUSCULAR VOLUME 89.8 FL (78-98); MEAN PLATELET VOLUME 7.2 FL (7.4-10.4); MONOCYTES # (AUTO) 0.6 X10'3 (0-0.9); MONOCYTES % (AUTO) 11.2 % (2-12); NEUTROPHILS # (AUTO) 2.9 X10'3 (1.8-7.7); PLATELET COUNT 309 X10'3 (140-440); RED BLOOD COUNT 4.29 X10'6 (4.70-6.10); RED CELL DISTRIBUTION WIDTH 13.9 % (11.5-14.5)
[2021-07-24] MEDS: ibuprofen tablet 400 MG TABLET PO SCH ×3 (08:33→17:34)
[2021-07-24] MEDS: pantoprazole 40mg Tablet.DR PO SCH (08:33)
[2021-07-24] MEDS: amantadine 100 MG capsule PO SCH ×2 (08:33→20:33)
[2021-07-24] MEDS: sulfamethoxazole/trimethoprim DS (800/160mg) tablet PO SCH ×2 (08:33→20:33)
[2021-07-24] MEDS: lactobacillus rhamnosus 10,000 MMU CELLS/CAPSULE PO SCH ×2 (08:33→20:33)
[2021-07-24] MEDS: potassium Cl 20 mEq SR tablet PO SCH ×2 (08:33→20:33)
[2021-07-24] MEDS: docusate sod 100mg capsule PO SCH ×2 (08:34→20:32)
[2021-07-24] MEDS: clozapine 100mg tablet PO SCH (09:29)
[2021-07-24 19:31] VITALS: BP 113/76
[2021-07-24] MEDS: clozapine 25mg tablet PO SCH ×2 (20:33)
--- NOTE | 2021-07-24 23:32 | NUR ---
Nursing Progress Note: Kenneth Grey Legal hold: 5250 Client on involuntary status for GD Report received from Nicanor MEEK with use of SBAR Reason for admit: Patient admitted to [place] on 5150 GD . 5150 states Genoveva (payee) was concerned he could not utilize his funds and they were concerned he could not obtain food and clothing due to his mental illness. He has a wound to his right finger and states delusions regarding a nuclear submarine. Public guardian will serve 5 day notice for temporary conservatorship. He does have a history of LPS conservatorship. What has happened this shift: Pt. received in his room lying down listening to headphones. Pt calm and cooperative. Denies SI and AH at this time. Pt requests clozapine (tried to tell pt he is on clozaril) and fails to realize it is the same medication. Flat affect very cooperative. States he is doing fine and has no other complaints. Cooperative with HS medications and requested sandwich and chips for snack. Continued to listen to headphones in his room until bedtime. S/I, H/I: Denies. A/VH: Denies Sleep: ADL's: Independent Group attendance: No Were meds taken: Yes Any med S/E: None observed or reported. Mental Status Exam Appearance: Male appearing older than his age, disheveled, dental carries/broken teeth, wearing green scrubs. Behavior: Cooperative Speech: Soft spoken, mumbles Mood: Im doing okay Affect: Flat Thought process: Disorganized Thought Content: meeting needs Cognition: A/O x2 Insight: Poor. Judgment: Poor. Interventions PRN's used: None. Therapeutic interventions: 1:1 assessment, establishment of rapport, therapeutic conversation, active listening, medication administration/education/monitoring, encouragement of personal hygiene, behavior monitoring and intervention as needed; reality orientation, distraction, redirection, limit setting, positive reinforcement, and Q 15 minute safety checks. Restraints/seclusion/emergency medication: N/A Justification of Continued Inpatient Treatment: Pt in need of stabilization with medication adjustment and monitoring in a safe and therapeutic environment.
[2021-07-25 08:00] VITALS: BP 98/62
[2021-07-25] MEDS: potassium Cl 20 mEq SR tablet PO SCH ×3 (08:00→20:00)
[2021-07-25] MEDS: sulfamethoxazole/trimethoprim DS (800/160mg) tablet PO SCH ×3 (08:00→19:48)
[2021-07-25] MEDS: docusate sod 100mg capsule PO SCH ×3 (08:00→20:00)
[2021-07-25] MEDS: amantadine 100 MG capsule PO SCH ×2 (08:42→20:00)
[2021-07-25] MEDS: ibuprofen tablet 400 MG TABLET PO SCH ×3 (08:42→19:48)
[2021-07-25] MEDS: lactobacillus rhamnosus 10,000 MMU CELLS/CAPSULE PO SCH ×2 (08:42→19:48)
[2021-07-25] MEDS: clozapine 100mg tablet PO SCH (08:43)
[2021-07-25] MEDS: pantoprazole 40mg Tablet.DR PO SCH (08:43)
[2021-07-25] MEDS: LORazepam 1 MG tablet PO PRN ×2 (13:05→19:48)
--- NOTE | 2021-07-25 17:41 | NUR ---
Nursing Progress Note: Kenneth Grey Legal hold: 5250 Client on involuntary status for GD Report received from KEIRA Cordon with use of SBAR Reason for admit: Patient admitted to [facility] on 5150 GD . 5150 states Genove[employer] (payee) was concerned he could not utilize his funds and they were concerned he could not obtain food and clothing due to his mental illness. He has a wound to his right finger and states delusions regarding a nuclear submarine. Public guardian will serve 5 day notice for temporary conservatorship. He does have a history of LPS conservatorship. What has happened this shift: Patient received walking around the unit listening to headphones at change of shift. He was receptive to 1:1 assessment. Patient joined in the community room with peers for breakfast. Patient was noted chewing several pills this morning when given scheduled medication. He then proceeded to spit pills out onto his breakfast tray, endorsing that his pills taste like . Patient encouraged to swallow pills with water or to be put into apple sauce. This headline writer put patients scheduled Potassium and scheduled Septra into applesauce to give to patient. Upon entering his room patient endorsed that the apple juice he drank for breakfast is making his foot hurt. Patient screamed I dont want it! when this headline writer tried to give patient medication. He was observed lying in bed the majority of the morning. Patient was observed walking around the unit listening to music through headphones before lunch. Staff notified this headline writer that patient was appearing to be irritable, observed door-checking and sitting in the community room with his hands over his head. Patient was given PRN Ativan at 1305 with effectiveness. He was self-isolative and quiet the majority of the day, yet active on the unit. Patient observed aggressively yelling out from his room later in the day stating, You fradha bitch! and Fradha scum bag! noted responding to IS. He participated in the group room for all meal and snack times today. S/I, H/I: Denies. A/VH: Denies. Does not appear to be responding to IS. Sleep: Patient slept 6.75 hours last night per NOC shift, napped intermittently on this shift. ADL's: Independent Group attendance: None provided Were meds taken: Yes Any med S/E: None observed or reported. Mental Status Exam Appearance: Male appearing older than his age, disheveled, dental carries/broken teeth, wearing green scrubs. Behavior: Cooperative, self-isolative Speech: Soft spoken, mumbles Mood: Irritable at times Affect: Flat Thought process: Disorganized Thought Content: Meeting needs. Cognition: A&O x2 Insight: Poor. Judgment: Poor. Interventions PRN's used: PRN Ativan 1mg Therapeutic interventions: 1:1 assessment, therapeutic conversation, active listening, medication administration/education/monitoring, encouragement of personal hygiene, behavior monitoring and intervention as needed; reality orientation, distraction, redirection, limit setting, positive reinforcement, and Q 15 minute safety checks. Restraints/seclusion/emergency medication: N/A Justification of Continued Inpatient Treatment: Pt in need of stabilization with medication adjustment and monitoring in a safe and therapeutic environment.
[2021-07-25 20:33] VITALS: BP 114/76
[2021-07-25] MEDS ORDERED: clozapine 100mg tablet PO SCH (21:00)
--- NOTE | 2021-07-26 02:04 | NUR ---
Nursing Progress Note: Kenneth Grey Legal hold: 5250 Client on involuntary status for GD Report received from KEIRA Vick with use of SBAR Reason for admit: Patient admitted to [facility] on 5150 GD . 5150 states Genoveva (payee) was concerned he could not utilize his funds and they were concerned he could not obtain food and clothing due to his mental illness. He has a wound to his right finger and states delusions regarding a nuclear submarine. Public guardian will serve 5 day notice for temporary conservatorship. He does have a history of LPS conservatorship. What has happened this shift: Patient received walking around the unit listening to headphones at change of shift. He was receptive to 1:1 assessment. Patient refused his potassium 40meq pills he refused his Colace he said it taste like poison and he also refused to take his symmetrel capsule he said it taste like . Ativan 1mg PRN was given. Patient remained in his room for the remainder of the night. S/I, H/I: Denies. A/VH: Denies. Does not appear to be responding to IS. Sleep: Patient slept 6.75 hours last night per NOC shift, napped intermittently on this shift. ADL's: Independent Group attendance: None provided Were meds taken: Yes, some not all Any med S/E: None observed or reported. Mental Status Exam Appearance: Male appearing older than his age, disheveled, dental carries/broken teeth, wearing green scrubs. Behavior: Cooperative, self-isolative Speech: Soft spoken, mumbles Mood: Irritable at times Affect: Flat Thought process: Disorganized Thought Content: Meeting needs. Cognition: A&O x2 Insight: Poor. Judgment: Poor. Interventions PRN's used: PRN Ativan 1mg Therapeutic interventions: 1:1 assessment, therapeutic conversation, active listening, medication administration/education/monitoring, encouragement of personal hygiene, behavior monitoring and intervention as needed; reality orientation, distraction, redirection, limit setting, positive reinforcement, and Q 15 minute safety checks. Restraints/seclusion/emergency medication: N/A Justification of Continued Inpatient Treatment: Pt in need of stabilization with medication adjustment and monitoring in a safe and therapeutic environment.
[2021-07-26 07:18] VITALS: BP 108/70
[2021-07-26] MEDS: docusate sod 100mg capsule PO SCH ×3 (08:00→21:05)
[2021-07-26] MEDS: pantoprazole 40mg Tablet.DR PO SCH ×2 (08:00→08:15)
[2021-07-26] MEDS: amantadine 100 MG capsule PO SCH ×3 (08:00→21:05)
[2021-07-26] MEDS: potassium Cl 20 mEq SR tablet PO SCH ×2 (08:00→08:15)
[2021-07-26] MEDS: ibuprofen tablet 400 MG TABLET PO SCH ×3 (08:15→21:04)
[2021-07-26] MEDS: lactobacillus rhamnosus 10,000 MMU CELLS/CAPSULE PO SCH ×2 (08:15→21:05)
[2021-07-26] MEDS: sulfamethoxazole/trimethoprim DS (800/160mg) tablet PO SCH ×2 (08:15→21:04)
[2021-07-26] MEDS: clozapine 100mg tablet PO SCH ×2 (08:15→21:05)
[2021-07-26 08:21] LABS: BASOPHILS % (AUTO) 0.4 % (0-1); EOSINOPHILS # (AUTO) 0.1 X10'3 (0-0.9); HEMATOCRIT 39.5 % (42.0-52.0); HEMOGLOBIN 13.3 g/dl (14.0-17.9); LYMPHOCYTES # (AUTO) 1.7 X10'3 (1.1-4.8); LYMPHOCYTES % (AUTO) 31.3 % (21-51); MEAN CORPUSCULAR HEMOGLOBIN 30.1 PG (27.0-31.0); MEAN CORPUSCULAR HGB CONC 33.7 g/dL (33.0-36.5); MEAN CORPUSCULAR VOLUME 89.3 FL (78-98); MEAN PLATELET VOLUME 7.5 FL (7.4-10.4); MONOCYTES # (AUTO) 0.5 X10'3 (0-0.9); MONOCYTES % (AUTO) 10.1 % (2-12); NEUTROPHILS % (AUTO) 56.2 % (42-75); PLATELET COUNT 297 X10'3 (140-440); RED BLOOD COUNT 4.42 X10'6 (4.70-6.10); RED CELL DISTRIBUTION WIDTH 13.6 % (11.5-14.5); WHITE BLOOD COUNT 5.3 X10'3 (4.5-11.0)
[2021-07-26 09:02] LABS: ALBUMIN 3.5 G/DL (3.4-5.0); ANION GAP 11 (8-16); BLOOD UREA NITROGEN 20 MG/DL (7-18); CHLORIDE 104 MMOL/L (99-107); GLUCOSE 91 MG/DL (70-104); POTASSIUM 4.5 MMOL/L (3.5-5.1); SODIUM 139 MMOL/L (135-145); TOTAL CARBON DIOXIDE 24.5 MMOL/L (24-32); eGFR 79 ML/MIN
--- NOTE | 2021-07-26 17:52 | NUR ---
Nursing Progress Note: Legal hold: 5250 Client on involuntary status for GD Report received from KEIRA Cordon with use of SBAR. Reason for admit: Patient admitted to [facility] on 5150 GD. 5150 states Genoveva (payee) was concerned he could not utilize his funds and they were concerned he could not obtain food and clothing due to his mental illness. He has a wound to his right finger and states delusions regarding a nuclear submarine. Public guardian will serve 5 day notice for temporary conservatorship. He does have a history of LPS conservatorship. What has happened this shift: Patient is resting quietly in bed at the start of the shift. Cooperative with 1:1 assessment. When given medications the patient takes several pills out stating he does not want them. Educated on their purposes to which he states, I dont know what happened but this one has a number on it. If you open this one up and squeeze it out it tastes like poison. This one tastes like inside. These ones melt and get powdery. Refuses protonix, symmetrel, Colace and potassium. Provider aware. Isolates in his room much of the day. In the afternoon patient yells, Fuck you! while alone in his room. When questioned about it patient states that someone changed the inserts in his shoes. States, I can tell theyre different. Patient is redirected and appears calm. In the afternoon the patient spends time in the community room watching TV and also resting in his room. S/I, H/I: Denies. A/VH: Denies, but appears to be responding to internal stimuli Sleep: Takes short naps throughout the day ADL's: Independent Group attendance: NA Were meds taken: Refuses protonix, symmetrel, Colace and potassium. All other medication taken Any med S/E: None observed or reported Mental Status Exam Appearance: Male appearing older than his age, disheveled, dental carries/broken teeth, wearing green scrubs. Behavior: Cooperative, self-isolative Speech: Soft spoken, mumbles Mood: Fine. Affect: Constricted Thought process: Disorganized Thought Content: Meeting needs. Cognition: A&O x2 Insight: Poor. Judgment: Poor. Interventions PRN's used: None Therapeutic interventions: 1:1 assessment, therapeutic conversation, active listening, medication administration/education/monitoring, encouragement of personal hygiene, behavior monitoring and intervention as needed; reality orientation, distraction, redirection, limit setting, positive reinforcement, and Q 15 minute safety checks. Restraints/seclusion/emergency medication: N/A Justification of Continued Inpatient Treatment: Pt in need of stabilization with medication adjustment and monitoring in a safe and therapeutic environment.
[2021-07-26 20:18] VITALS: BP 127/82
[2021-07-26] MEDS: clozapine 25mg tablet PO SCH (21:05)
--- NOTE | 2021-07-27 03:00 | NUR ---
Nursing Progress Note: Legal hold: 5250 Client on involuntary status for GD Report received from KEIRA Castellon with use of SBAR. Reason for admit: Patient admitted to [facility] on 5150 GD. 5150 states Genoveva (payee) was concerned he could not utilize his funds and they were concerned he could not obtain food and clothing due to his mental illness. He has a wound to his right finger and states delusions regarding a nuclear submarine. Public guardian will serve 5 day notice for temporary conservatorship. He does have a history of LPS conservatorship. What has happened this shift: Patient is resting quietly in bed at the start of the shift. He was easily aroused and stated, "I remember you." when I introduced myself. When given his medications, he wanted to look at his pills before taking them. He inquired why some pills were being given to him. He stated, "these 2 capsules taste like inside". When I educated him that he takes different pills in the morning than in the evening and he is to take the pills with applesauce and not chew them, he quickly complied and was thankful. He swallowed all the pills without difficulty. He endorsed AH stating he was hearing voices that "say they are from [place]." He also displayed delusions by stating the, "the water here is poison. See it looks like it has metal in it." He was referring to the ice in the water. He also stated, "you know if you put mouth wash in the water here it cures it?" When I educated him that there is ice in the water and it will soon melt, he quickly drank the water and was thankful. He smiled at times while talking to me, and fist-bumped me after taking his pills. S/I, H/I: Denies. A/VH: Admits to hearing voices that say they are from [place]. I also heard him talking to himself at times Sleep: Sleeping at the time of this note ADL's: Independent Group attendance: N/A Were meds taken: Yes. He questioned why he was being given some meds but took them after being educated that he should swallow them with applesauce and not chew them Any med S/E: None observed or reported Mental Status Exam Appearance: Male, well-groomed (recent shave & haircut), poor dentition (dental carries/broken teeth), wearing green scrubs. Behavior: Cooperative, self-isolative, talks to himself Speech: Soft spoken, mumbles Mood: Ok Affect: Constricted, smiles at times Thought process: Disorganized Thought Content: Pills taste bad Cognition: A&O x2 Insight: Poor. Judgment: Poor. Interventions PRN's used: None RECOMMEND GIVING HIS PILLS WHOLE IN APPLESAUCE AND TELL HIM NOT TO CHEW THEM Therapeutic interventions: 1:1 assessment, therapeutic conversation, active listening, medication administration/education/monitoring, encouragement of personal hygiene, behavior monitoring and intervention as needed; reality orientation, distraction, redirection, limit setting, positive reinforcement, and Q 15 minute safety checks. Restraints/seclusion/emergency medication: N/A Justification of Continued Inpatient Treatment: Pt in need of stabilization with medication adjustment and monitoring in a safe and therapeutic environment.
[2021-07-27] MEDS: docusate sod 100mg capsule PO SCH ×2 (07:53→20:32)
[2021-07-27] MEDS: amantadine 100 MG capsule PO SCH ×2 (07:53→20:34)
[2021-07-27] MEDS: sulfamethoxazole/trimethoprim DS (800/160mg) tablet PO SCH ×2 (07:53→20:32)
[2021-07-27] MEDS: pantoprazole 40mg Tablet.DR PO SCH (07:53)
[2021-07-27] MEDS: lactobacillus rhamnosus 10,000 MMU CELLS/CAPSULE PO SCH ×2 (07:53→20:32)
[2021-07-27] MEDS: ibuprofen tablet 400 MG TABLET PO SCH ×3 (07:54→20:33)
[2021-07-27] MEDS: clozapine 100mg tablet PO SCH ×2 (07:54→20:38)
[2021-07-27] MEDS ORDERED: potassium Cl 20 mEq SR tablet PO SCH (08:00)
[2021-07-27 08:12] VITALS: BP 123/78
--- NOTE | 2021-07-27 13:56 | NUR ---
Reassessment: Pt continues on Regular diet w/ mostly 100% intake of meals meeting estimated nutritional needs at this time. LBM 07/25 receiving routine colace. No nutrition intervention at this time. Will continue to monitor. Recommendations: 1. Continue regular diet as tolerated 2. Bowel care per Rx 3. Weekly wt Addendum: 07/27/21 at [address] Amended: Links added.
--- NOTE | 2021-07-27 17:27 | NUR ---
Nursing Progress Note: Kenneth Legal hold: 5250 Client on involuntary status for GD Report received from KEIRA Aparicio with use of SBAR. Reason for admit: Patient admitted to [facility] on 5150 GD. 5150 states Genoveva (payee) was concerned he could not utilize his funds and they were concerned he could not obtain food and clothing due to his mental illness. He has a wound to his right finger and states delusions regarding a nuclear submarine. Public guardian will serve 5 day notice for temporary conservatorship. He does have a history of LPS conservatorship. What has happened this shift: Patient received sleeping in his rooms. Pt. was delusional and not receptive to taking all his medication and spit out half of K+ stating this pill does things to me he was suspicious of all meds but took the remainder. Pt. denies SI, HI, AH, VH, but presents as guarded and agitated at questions. He refuses to discuss circumstances surrounding admission, but reports no plan for discharge. He was encouraged to change his scrubs and wash his face this morning, but stated I dont want too. Pt. ate his meals in the dining room with cohorts, but engaged minimally with others, he presents as easily agitated socially isolated, he often returned to his room immediately after meals to nap. No episodes of verbal aggression this shift. S/I, H/I: Denies. A/VH: Denies Sleep: Napped intermittently ADL's: Independent, prompted Group attendance: NA Were meds taken: yes, but spit out a portion of his K Dur Any med S/E: None observed or reported Mental Status Exam Appearance: Male, disheveled, dental carries/broken teeth, wearing green scrubs. Behavior: Cooperative, self-isolative Speech: Soft spoken, mumbles Mood: Im tired. Affect: Constricted Thought process: Disorganized Thought Content: Meeting needs. Cognition: A&O x2 Insight: Poor. Judgment: Poor. Interventions PRN's used: None Therapeutic interventions: 1:1 assessment, therapeutic conversation, active listening, medication administration/education/monitoring, encouragement of personal hygiene, behavior monitoring and intervention as needed; reality orientation, distraction, redirection, limit setting, positive reinforcement, and Q 15 minute safety checks. Restraints/seclusion/emergency medication: N/A Justification of Continued Inpatient Treatment: Pt in need of stabilization with medication adjustment and monitoring in a safe and therapeutic environment.
--- NOTE | 2021-07-27 19:18 | NUR ---
Change KDUR to Liquid Verbal order received from JAMES Quintero to change potassium tabs to liquid since pt chews the tablets. Message sent to pharmacy.
[2021-07-27 19:35] VITALS: BP 100/65
[2021-07-27] MEDS: clozapine 25mg tablet PO SCH (20:38)
--- NOTE | 2021-07-28 03:00 | NUR ---
Nursing Progress Note: Legal hold: 5250 Client on involuntary status for GD Report received from KEIRA Castellon with use of SBAR. Reason for admit: Patient admitted to [facility] on 5150 GD. 5150 states Genoveva (payee) was concerned he could not utilize his funds and they were concerned he could not obtain food and clothing due to his mental illness. He has a wound to his right finger and states delusions regarding a nuclear submarine. Public guardian will serve 5 day notice for temporary conservatorship. He does have a history of LPS conservatorship. What has happened this shift: At the start of the shift patient up in the TV room watching TV. He smiled and came over to me. He reports he is feeling good. He endorses that "I always hear voices but sometimes they come and go." Tonight he says he is only hearing my voice and the other nurse's voice (who was in the same room). He denies any SI/HI He readily took his medicines whole with applesauce and did not question what he was taking. He also stated that the water tasted good I received an order from Tee RAMIREZ to change his Kdur pills to liquid, since he is known to chew the Kdur pills and c/o about the taste Today he did not display any delusions and seemed to be in a good mood. He smiled at times while talking to me, and thanked me for his medicines I received in report that he and a female patient were kissing in the TV room behind one of the structures S/I, H/I: Denies. A/VH: Admits to hearing voices all the time. Today he said he only heard my voice and the other nurse's voice Sleep: Sleeping at the time of this note ADL's: Independent Group attendance: N/A Were meds taken: Yes. Whole with applesauce. RECOMMEND GIVING HIS PILLS WHOLE IN APPLESAUCE AND TELL HIM NOT TO CHEW THEM Any med S/E: None observed or reported Mental Status Exam Appearance: Male, well-groomed (recent shave & haircut), poor dentition (dental carries/broken teeth), wearing green scrubs. Behavior: Cooperative, self-isolative, talks to himself Speech: Soft spoken, mumbles Mood: Good Affect: Constricted, but congruent today since he smiled multiple times Thought process: Disorganized Thought Content: Feels good Cognition: A&O x2 Insight: Poor. Judgment: Poor. Interventions PRN's used: None Therapeutic interventions: 1:1 assessment, therapeutic conversation, active listening, medication administration/education/monitoring, encouragement of personal hygiene, behavior monitoring and intervention as needed; reality orientation, distraction, redirection, limit setting, positive reinforcement, and Q 15 minute safety checks. Close monitoring to prevent inappropriate contact with other patients Restraints/seclusion/emergency medication: N/A Justification of Continued Inpatient Treatment: Pt in need of stabilization with medication adjustment and monitoring in a safe and therapeutic environment.
[2021-07-28 07:50] LABS: BASOPHILS % (AUTO) 0.3 % (0-1); EOSINOPHILS # (AUTO) 0.1 X10'3 (0-0.9); HEMATOCRIT 38.3 % (42.0-52.0); HEMOGLOBIN 13.2 g/dl (14.0-17.9); LYMPHOCYTES # (AUTO) 1.8 X10'3 (1.1-4.8); LYMPHOCYTES % (AUTO) 37.6 % (21-51); MEAN CORPUSCULAR HEMOGLOBIN 30.7 PG (27.0-31.0); MEAN CORPUSCULAR HGB CONC 34.5 g/dL (33.0-36.5); MEAN PLATELET VOLUME 7.6 FL (7.4-10.4); MONOCYTES # (AUTO) 0.5 X10'3 (0-0.9); MONOCYTES % (AUTO) 10.6 % (2-12); NEUTROPHILS # (AUTO) 2.4 X10'3 (1.8-7.7); NEUTROPHILS % (AUTO) 49.5 % (42-75); PLATELET COUNT 275 X10'3 (140-440); RED CELL DISTRIBUTION WIDTH 13.8 % (11.5-14.5); WHITE BLOOD COUNT 4.8 X10'3 (4.5-11.0)
[2021-07-28 07:53] VITALS: BP 91/67
[2021-07-28] MEDS: docusate sod 100mg capsule PO SCH ×2 (07:54→20:35)
[2021-07-28] MEDS: amantadine 100 MG capsule PO SCH ×2 (07:54→20:36)
[2021-07-28] MEDS: sulfamethoxazole/trimethoprim DS (800/160mg) tablet PO SCH ×2 (07:55→20:36)
[2021-07-28] MEDS: pantoprazole 40mg Tablet.DR PO SCH (07:55)
[2021-07-28] MEDS: POTASSIUM BICARB 20meq eff tab 20 MEQ TABLET.EFF PO SCH (07:55)
[2021-07-28] MEDS: lactobacillus rhamnosus 10,000 MMU CELLS/CAPSULE PO SCH ×2 (07:55→20:36)
[2021-07-28] MEDS: ibuprofen tablet 400 MG TABLET PO SCH ×3 (07:55→20:36)
[2021-07-28] MEDS: clozapine 100mg tablet PO SCH ×2 (07:55→20:37)
--- NOTE | 2021-07-28 16:37 | NUR ---
Nursing Progress Note: Kenneth Legal hold: 5250 Client on involuntary status for GD Report received from KEIRA Carson with use of SBAR. Reason for admit: Patient admitted to [facility] on 5150 GD. 5150 states Genoveva (payee) was concerned he could not utilize his funds and they were concerned he could not obtain food and clothing due to his mental illness. He has a wound to his right finger and states delusions regarding a nuclear submarine. Public guardian will serve 5 day notice for temporary conservatorship. He does have a history of LPS conservatorship. What has happened this shift: Patient received sleeping in his room at shift. He was receptive to medication and N.O K+ eff started, however he did not finish the entire drink. Pt. receptive and 1:1 completed, he endorses SI, stating sometimes and endorses HI, stating Ill hurt that black daniela and that white girl who keeps coming into my room. Pt. denies AH, but also endorses VH stating, I can make it happen, I can see people, spirits. Pt. presents as delusional and open to discussing his feelings. Pt. ate breakfast in the main dining room with cohorts, he did not engage socially with peers, but enjoyed listening to headphones or music on the TV. Pt. participated in snack as well. Sports Management Intern often observed pt. sitting in his room listening to headphones and looking out of the window. Pt. ate lunch in the dining room and immediately returned to his room for a nap. S/I, H/I: Endorses both. A/VH: Denies AH, endorses VH Sleep: Napped intermittently ADL's: Independent, prompted Group attendance: None Were meds taken: Yes, but only drank a portion of his K+ eff Any med S/E: None observed or reported Mental Status Exam Appearance: Male, disheveled, dental carries/broken teeth, wearing green scrubs. Behavior: Cooperative, self-isolative Speech: Soft spoken, mumbles Mood: Im alright. Affect: Constricted Thought process: Disorganized, delusional Thought Content: Meeting needs. Cognition: A&O x2 Insight: Poor. Judgment: Poor. Interventions PRN's used: None Therapeutic interventions: 1:1 assessment, therapeutic conversation, active listening, medication administration/education/monitoring, encouragement of personal hygiene, behavior monitoring and intervention as needed; reality orientation, distraction, redirection, limit setting, positive reinforcement, and Q 15 minute safety checks. Restraints/seclusion/emergency medication: N/A Justification of Continued Inpatient Treatment: Pt in need of stabilization with medication adjustment and monitoring in a safe and therapeutic environment.
[2021-07-28 20:18] VITALS: BP 109/77
[2021-07-28] MEDS: clozapine 25mg tablet PO SCH (20:36)
--- NOTE | 2021-07-29 05:16 | NUR ---
Nursing Progress Note: Legal hold: 5250 Client on involuntary status for GD Report received from KEIRA Castellon with use of SBAR. Reason for admit: Patient admitted to [facility] on 5150 GD. 5150 states Genoveva (payee) was concerned he could not utilize his funds and they were concerned he could not obtain food and clothing due to his mental illness. He has a wound to his right finger and states delusions regarding a nuclear submarine. Public guardian will serve 5 day notice for temporary conservatorship. He does have a history of LPS conservatorship. What has happened this shift: At the start of the shift patient up ambulating in the hallway. He smiled and came over to greet me. He reports he is feeling good and had a good day. He endorses that "I always hear voices but sometimes they come and go." Tonight he says he doesn't know what the voices are saying He was also heard having conversation with himself in his room He denies any SI/HI He readily took his medicines (whole with applesauce) and did not question what he was taking. He also drank the water quickly Today he did not display any delusions and seemed to be in a good mood. He smiled at times while talking to me, and asked me if I will be working tomorrow. S/I, H/I: Denies. A/VH: Admits to hearing voices all the time. Today he said he does not know what the voices are saying. Also heard having conversations with himself Sleep: Sleeping at the time of this note ADL's: Independent Group attendance: N/A Were meds taken: Yes. Whole with applesauce. RECOMMEND GIVING HIS PILLS WHOLE IN APPLESAUCE AND TELL HIM NOT TO CHEW THEM Any med S/E: None observed or reported Mental Status Exam Appearance: Male, appropriately groomed, wearing green scrubs. He has poor dentition (dental carries/broken teeth) Behavior: Cooperative, self-isolative, talks to himself Speech: Soft spoken, mumbles sometimes Mood: Good Affect: Constricted, but congruent today since he smiled multiple times Thought process: Disorganized Thought Content: Feels good Cognition: A&O x2 Insight: Poor. Judgment: Poor. Interventions PRN's used: None Therapeutic interventions: 1:1 assessment, therapeutic conversation, active listening, medication administration/education/monitoring, encouragement of personal hygiene, behavior monitoring and intervention as needed; reality orientation, distraction, redirection, limit setting, positive reinforcement, and Q 15 minute safety checks. Close monitoring to prevent inappropriate contact with other patients Restraints/seclusion/emergency medication: N/A Justification of Continued Inpatient Treatment: Pt in need of stabilization with medication adjustment and monitoring in a safe and therapeutic environment.
[2021-07-29 08:00] VITALS: BP 106/69
[2021-07-29] MEDS: clozapine 100mg tablet PO SCH ×2 (08:23→20:37)
[2021-07-29] MEDS: docusate sod 100mg capsule PO SCH ×2 (08:24→20:37)
[2021-07-29] MEDS: ibuprofen tablet 400 MG TABLET PO SCH ×3 (08:24→20:37)
[2021-07-29] MEDS: pantoprazole 40mg Tablet.DR PO SCH (08:24)
[2021-07-29] MEDS: POTASSIUM BICARB 20meq eff tab 20 MEQ TABLET.EFF PO SCH (08:24)
[2021-07-29] MEDS: amantadine 100 MG capsule PO SCH ×2 (08:24→20:37)
[2021-07-29] MEDS: lactobacillus rhamnosus 10,000 MMU CELLS/CAPSULE PO SCH ×2 (08:24→20:37)
[2021-07-29] MEDS: sulfamethoxazole/trimethoprim DS (800/160mg) tablet PO SCH ×2 (08:24→20:37)
--- NOTE | 2021-07-29 14:39 | NUR ---
Nursing Progress Note Legal hold: 5250 Client on involuntary status for GD Report received from RN with use of SBAR Reason for admit: Patient admitted to [facility] on 5150 GD. 5150 states Genoveva (payee) was concerned he could not utilize his funds and they were concerned he could not obtain food and clothing due to his mental illness. He has a wound to his right finger and states delusions regarding a nuclear submarine. Public guardian will serve 5 day notice for temporary conservatorship. He does have a history of LPS conservatorship. What has happened this shift: Received Pt in his room sleeping w/o distress. Pt woke for vitals and was cooperative. Pt ate breakfast in community room with others and returned to his room to nap. Pt took meds today w/o issue. Pt spoke about having his leg removed and they sewed a new one on. Pt speaking psychotically in response to simple questions about sleep and pain. Pt largely isolated to his room for most of the day, sitting on edge of bed for periods of time. Pt up for meals and not interacting much with others. Pt attended afternoon art therapy group. S/I, H/I: Pt reports both SI and HI at times A/VH: Denies AH, endorses VH Sleep: Napped intermittently in AM and PM ADL's: Independent Group attendance: None Were meds taken: Yes Any med S/E: None observed or reported Mental Status Exam Appearance: Casual in green scrubs Behavior: Cooperative, self-isolative Speech: Delusiona Mood: Depressed Affect: Constricted Thought process: Disorganized, delusional Thought Content: Being oppressed Cognition: A&O x2 Insight: Poor Judgment: Poor Interventions PRN's used: None Therapeutic interventions: 1:1 assessment, therapeutic conversation, active listening, medication administration/education/monitoring, encouragement of personal hygiene, behavior monitoring and intervention as needed; reality orientation, distraction, redirection, limit setting, positive reinforcement, and Q 15 minute safety checks. Restraints/seclusion/emergency medication: N/A Justification of Continued Inpatient Treatment: Pt in need of stabilization with medication adjustment and monitoring in a safe and therapeutic environment.
[2021-07-29 20:24] VITALS: BP 118/80
[2021-07-29] MEDS: clozapine 25mg tablet PO SCH (20:37)
--- NOTE | 2021-07-30 03:04 | NUR ---
Nursing Progress Note: Legal hold: 5250 Client on involuntary status for GD Report received from KEIRA Smith with use of SBAR. Reason for admit: Patient admitted to [facility] on 5150 GD. 5150 states Genoveva (payee) was concerned he could not utilize his funds and they were concerned he could not obtain food and clothing due to his mental illness. He has a wound to his right finger and states delusions regarding a nuclear submarine. Public guardian will serve 5 day notice for temporary conservatorship. He does have a history of LPS conservatorship. What has happened this shift: Patient seen in the rec room watching a movie. He looked up and smiled. Said he's doing pretty good today. Patient never says much, but he does report AH. "It's always just noise, not commands, not threats, just BS that I can't understand." He's tired of it. Patient stayed watching movies until after HS med pass. He was compliant with his medications. S/I, H/I: Denies. A/VH: Admits to hearing voices all the time. Sleep: See sleep assessment ADL's: Independent Group attendance: N/A Were meds taken: Yes. Any med S/E: None observed or reported Mental Status Exam Appearance: Male, appropriately groomed, wearing green scrubs. He has poor dentition (dental carries/broken teeth) Behavior: Cooperative, self-isolative, talks to himself Speech: Soft spoken, mumbles sometimes Mood: Good Affect: Constricted, but congruent today since he smiled multiple times Thought process: Disorganized Thought Content: Feels good Cognition: A&O x2 Insight: Poor. Judgment: Poor. Interventions PRN's used: None Therapeutic interventions: 1:1 assessment, therapeutic conversation, active listening, medication administration/education/monitoring, encouragement of personal hygiene, behavior monitoring and intervention as needed; reality orientation, distraction, redirection, limit setting, positive reinforcement, and Q 15 minute safety checks. Close monitoring to prevent inappropriate contact with other patients Restraints/seclusion/emergency medication: N/A Justification of Continued Inpatient Treatment: Pt in need of stabilization with medication adjustment and monitoring in a safe and therapeutic environment.
[2021-07-30 07:59] VITALS: BP 103/63
[2021-07-30] MEDS: lactobacillus rhamnosus 10,000 MMU CELLS/CAPSULE PO SCH ×2 (08:01→20:34)
[2021-07-30] MEDS: POTASSIUM BICARB 20meq eff tab 20 MEQ TABLET.EFF PO SCH (08:01)
[2021-07-30] MEDS: ibuprofen tablet 400 MG TABLET PO SCH ×3 (08:02→20:34)
[2021-07-30] MEDS: pantoprazole 40mg Tablet.DR PO SCH (08:02)
[2021-07-30] MEDS: amantadine 100 MG capsule PO SCH ×2 (08:02→20:34)
[2021-07-30] MEDS: clozapine 100mg tablet PO SCH ×2 (08:02→20:35)
[2021-07-30] MEDS: docusate sod 100mg capsule PO SCH ×2 (08:02→20:34)
--- NOTE | 2021-07-30 09:14 | NUR ---
KIMO Cooper is on a TCON and has court 08/19/21 at 1:30 PM, Dept 9. Provided him with letters stating such and informed him he is on a TCON and he stated, "no I'm not...I just need to be released". He reported he a hotel room has been paid for by his payee and his belongings are there. He last stayed at [facility]. Called and left a message for [employer], Charles (ph# [phone]), to see if she knows where Kenneth's belongings are. Requested a call back. BHAVANA Castanon
--- NOTE | 2021-07-30 13:33 | NUR ---
PLACEMENT Sent placement packet to AMA office. BHAVANA Castanon
--- NOTE | 2021-07-30 16:47 | NUR ---
Nursing Progress Note: Kenneth Legal hold: 5250 Client on involuntary status for GD Report received from KEIRA Ridley with use of SBAR. Reason for admit: Patient admitted to [facility] on 5150 GD. 5150 states Genoveva (payee) was concerned he could not utilize his funds and they were concerned he could not obtain food and clothing due to his mental illness. He has a wound to his right finger and states delusions regarding a nuclear submarine. Public guardian will serve 5 day notice for temporary conservatorship. He does have a history of LPS conservatorship. What has happened this shift: Patient received sleeping in his room. He was compliant with PO medication and took his K+ liquid. Later 1:1 assessment completed at the bedside. Pt. refused SI, HI, VH but endorses AH stating the voices are trying to make me laugh. Pt. reports he was admitted because the senior instrumentation engineer just took me and he plans or wants to discharge to a motel. Pt. presents as guarded during assessment. Pt. ate his meals in the dining room, and interacted socially with female cohort at his table. Pt. ambulated in fraga intermittently this shift, and was often observed sitting in TV room with head phones on. Pt. appears internal preoccupied at times abut not responding to IS. Pt. napped intermittently this afternoon. He is currently in tv room listening to headphones while watching tv. S/I, H/I: Denies. A/VH: Endorses AH, Denies VH Sleep: Napped intermittently ADL's: Independent, prompted Group attendance: Yes Were meds taken: Yes Any med S/E: None observed or reported Mental Status Exam Appearance: Male, disheveled, dental carries/broken teeth, wearing green scrubs. Behavior: Cooperative, self-isolative Speech: Soft spoken, mumbles Mood: Im okay today. Affect: Constricted Thought process: Disorganized Thought Content: Meeting needs. Cognition: A&O x2 Insight: Poor. Judgment: Poor. Interventions PRN's used: None Therapeutic interventions: 1:1 assessment, therapeutic conversation, active listening, medication administration/education/monitoring, encouragement of personal hygiene, behavior monitoring and intervention as needed; reality orientation, distraction, redirection, limit setting, positive reinforcement, and Q 15 minute safety checks. Restraints/seclusion/emergency medication: N/A Justification of Continued Inpatient Treatment: Pt in need of stabilization with medication adjustment and monitoring in a safe and therapeutic environment.
[2021-07-30 20:00] VITALS: BP 125/89
[2021-07-30] MEDS: clozapine 25mg tablet PO SCH (20:35)
--- NOTE | 2021-07-31 04:01 | NUR ---
Nursing Progress Note: Legal hold: 5250 Client on involuntary status for GD Report received from KEIRA Vick with use of SBAR. Reason for admit: Patient admitted to [facility] on 5150 GD. 5150 states Genoveva (payee) was concerned he could not utilize his funds and they were concerned he could not obtain food and clothing due to his mental illness. He has a wound to his right finger and states delusions regarding a nuclear submarine. Public guardian will serve 5 day notice for temporary conservatorship. He does have a history of LPS conservatorship. What has happened this shift: Patient isolated in his room most of the shift, only came out for evening snacks. He continues to report auditory hallucinations. He still states he just wants to go back out to the streets,and he is tired of being here. S/I, H/I: Denies. A/VH: Yes Sleep: slept throughout the night ADL's: Independent Group attendance: N/A Were meds taken: Yes. Any med S/E: None observed or reported Mental Status Exam Appearance: Male, appropriately groomed, wearing green scrubs Behavior: isolative Speech: Soft spoken Mood: Good Affect: blunted Thought process: linear Thought Content: focused on wanting to leave and go back to the streets Cognition: A&O x2 Insight: Poor. Judgment: Poor. Interventions PRN's used: None Therapeutic interventions: 1:1 assessment, therapeutic conversation, active listening, medication administration/education/monitoring, encouragement of personal hygiene, behavior monitoring and intervention as needed; reality orientation, distraction, redirection, limit setting, positive reinforcement, and Q 15 minute safety checks. Close monitoring to prevent inappropriate contact with other patients Restraints/seclusion/emergency medication: N/A Justification of Continued Inpatient Treatment: Pt in need of stabilization with medication adjustment and monitoring in a safe and therapeutic environment.
[2021-07-31 08:02] VITALS: BP 128/78
[2021-07-31] MEDS: POTASSIUM BICARB 20meq eff tab 20 MEQ TABLET.EFF PO SCH (08:15)
[2021-07-31] MEDS: docusate sod 100mg capsule PO SCH ×2 (08:16→20:00)
[2021-07-31] MEDS: ibuprofen tablet 400 MG TABLET PO SCH ×3 (08:16→20:31)
[2021-07-31] MEDS: pantoprazole 40mg Tablet.DR PO SCH (08:16)
[2021-07-31] MEDS: amantadine 100 MG capsule PO SCH ×2 (08:16→20:30)
[2021-07-31] MEDS: lactobacillus rhamnosus 10,000 MMU CELLS/CAPSULE PO SCH ×2 (08:16→20:31)
[2021-07-31] MEDS: clozapine 100mg tablet PO SCH ×2 (08:16→20:31)
--- NOTE | 2021-07-31 11:06 | NUR ---
PLACEMENT UPDATE Received placement packet, still waiting for a copy of the LPS letters and orders. TAD forwarded placement packet to PG for review. BHAVANA Castanon
--- NOTE | 2021-07-31 14:51 | NUR ---
Kenneth has been accepted at [facility]. It is unclear when they will have a bed available. Armida Infante LMFT
--- NOTE | 2021-07-31 17:24 | NUR ---
Nursing Progress Note: Legal hold: 5250 Client on involuntary status for GD Report received from GAVIOTA Ridley with use of SBAR Reason for admit: Patient admitted to [facility] on 5150 GD. 5150 states Genoveva (payee) was concerned he could not utilize his funds and they were concerned he could not obtain food and clothing due to his mental illness. He has a wound to his right finger and states delusions regarding a nuclear submarine. Public guardian will serve 5 day notice for temporary conservatorship. He does have a history of LPS conservatorship. What has happened this shift: Patient is resting quietly in bed at the start of the shift. Awakened for breakfast and is cooperative with 1:1 assessment and medications. Endorses AH but does not elaborate on what they say. Answers direct questions, does not engage in conversation. Isolates to his room much of the day, but is noted watching TV in the community room for short periods of time. Appears internally occupied and wears headphones most of the time. S/I, H/I: Denies. A/VH: Endorses AH Sleep: Naps off and on throughout the day ADL's: Independent Group attendance: NA Were meds taken: Yes Any med S/E: None observed or reported Mental Status Exam Appearance: Male, disheveled, dental carries/broken teeth, wearing green scrubs. Behavior: Cooperative, self-isolative Speech: Soft spoken, mumbles Mood: Good. Affect: Constricted Thought process: Disorganized Thought Content: Meeting needs. Cognition: A&O x2 Insight: Poor. Judgment: Poor. Interventions PRN's used: None Therapeutic interventions: 1:1 assessment, therapeutic conversation, active listening, medication administration/education/monitoring, encouragement of personal hygiene, behavior monitoring and intervention as needed; reality orientation, distraction, redirection, limit setting, positive reinforcement, and Q 15 minute safety checks. Restraints/seclusion/emergency medication: N/A Justification of Continued Inpatient Treatment: Pt in need of stabilization with medication adjustment and monitoring in a safe and therapeutic environment.
[2021-07-31 19:00] VITALS: BP 116/66
[2021-07-31] MEDS: clozapine 25mg tablet PO SCH (20:31)
--- NOTE | 2021-08-01 02:01 | NUR ---
Nursing Progress Note: Legal hold: 5250 Client on involuntary status for GD Report received from KEIRA Cooper with use of SBAR Reason for admit: Patient admitted to [facility] on 5150 GD. 5150 states Genoveva (payee) was concerned he could not utilize his funds and they were concerned he could not obtain food and clothing due to his mental illness. He has a wound to his right finger and states delusions regarding a nuclear submarine. Public guardian will serve 5 day notice for temporary conservatorship. He does have a history of LPS conservatorship. What has happened this shift: Patient laying in bed awake at the beginning of shift. Pleasant and cooperative with care; compliant with medication. Denies SI, HI, A/VH; does not appear to be responding to IS. Patient's wound to L ring finger is resolved. He participated in HS snack and shortly after returned to his room; observed sleeping and does not appear to be having difficulty. S/I, H/I: Denies A/VH: Denies Sleep: Refer to sleep assessment ADL's: Independent Group attendance: NA Were meds taken: Yes Any med S/E: None observed or reported Mental Status Exam Appearance: Appropriately dressed in green unit attire Behavior: Pleasant and cooperative, self-isolative Speech: Clear, audible, minimal Mood: Good. Affect: Constricted Thought process: Disorganized Thought Content: Meeting needs. Cognition: A&O x2 Insight: Poor. Judgment: Poor. Interventions PRN's used: None Therapeutic interventions: 1:1 assessment, therapeutic conversation, active listening, medication administration/education/monitoring, encouragement of personal hygiene, behavior monitoring and intervention as needed; reality orientation, distraction, redirection, limit setting, positive reinforcement, and Q 15 minute safety checks. Restraints/seclusion/emergency medication: NA Justification of Continued Inpatient Treatment: Pt in need of stabilization with medication adjustment and monitoring in a safe and therapeutic environment.
[2021-08-01] MEDS: lactobacillus rhamnosus 10,000 MMU CELLS/CAPSULE PO SCH ×2 (07:53→20:21)
[2021-08-01] MEDS: POTASSIUM BICARB 20meq eff tab 20 MEQ TABLET.EFF PO SCH (07:53)
[2021-08-01] MEDS: clozapine 100mg tablet PO SCH ×2 (07:53→20:21)
[2021-08-01] MEDS: pantoprazole 40mg Tablet.DR PO SCH (07:53)
[2021-08-01] MEDS: docusate sod 100mg capsule PO SCH ×2 (07:53→20:21)
[2021-08-01] MEDS: amantadine 100 MG capsule PO SCH ×2 (07:53→20:21)
[2021-08-01] MEDS: ibuprofen tablet 400 MG TABLET PO SCH ×3 (07:53→20:21)
[2021-08-01 08:03] VITALS: BP 93/57
--- NOTE | 2021-08-01 16:45 | NUR ---
Nursing Progress Note: Legal hold: 5250 Client on involuntary status for GD Report received from GAVIOTA Mendez with use of SBAR Reason for admit: Patient admitted to [facility] on 5150 GD. 5150 states Genoveva (payee) was concerned he could not utilize his funds and they were concerned he could not obtain food and clothing due to his mental illness. He has a wound to his right finger and states delusions regarding a nuclear submarine. Public guardian will serve 5 day notice for temporary conservatorship. He does have a history of LPS conservatorship. What has happened this shift: Patient is resting quietly in bed at the start of the shift. Cooperative with 1:1 assessment and medications. Appears fatigued and sleeps in until late morning. Upon arising the patient watches TV in the community room briefly and paces the unit. In the afternoon he spends time watching TV in the community room and interacts appropriately with peers. Wears headphones at times. Endorses AH and appears internally occupied. S/I, H/I: Denies. A/VH: Endorses AH Sleep: Naps off and on throughout the day. ADL's: Independent Group attendance: NA Were meds taken: Yes Any med S/E: None observed or reported Mental Status Exam Appearance: Male, disheveled, dental carries/broken teeth, wearing green scrubs. Behavior: Cooperative, self-isolative Speech: Soft spoken, mumbles Mood: Fine. Affect: Constricted Thought process: Disorganized Thought Content: Meeting needs. Cognition: A&O x2 Insight: Poor. Judgment: Poor. Interventions PRN's used: None Therapeutic interventions: 1:1 assessment, therapeutic conversation, active listening, medication administration/education/monitoring, encouragement of personal hygiene, behavior monitoring and intervention as needed; reality orientation, distraction, redirection, limit setting, positive reinforcement, and Q 15 minute safety checks. Restraints/seclusion/emergency medication: N/A Justification of Continued Inpatient Treatment: Pt in need of stabilization with medication adjustment and monitoring in a safe and therapeutic environment.
[2021-08-01 19:51] VITALS: BP 110/78
[2021-08-01] MEDS: clozapine 25mg tablet PO SCH (20:21)
--- NOTE | 2021-08-02 02:38 | NUR ---
Nursing Progress Note: Legal hold: TCON Client on involuntary status for GD Report received from KEIRA Cooper with use of SBAR Reason for admit: Patient admitted to [facility] on 5150 GD. 5150 states Genoveva (payee) was concerned he could not utilize his funds and they were concerned he could not obtain food and clothing due to his mental illness. He has a wound to his right finger and states delusions regarding a nuclear submarine. Public guardian will serve 5 day notice for temporary conservatorship. He does have a history of LPS conservatorship. What has happened this shift: Patient sitting up in bed at the beginning of shift. Pleasant and cooperative with care; compliant with medication. Denies SI, HI, A/VH; does not appear to be responding to IS. Patient remained calm when journalists and other writers asked how he felt about conservatorship and reported, "I don't wan to do that anymore." Mold Stacker explained his need for food, snf and clothing and he nodded his head in agreement. He participated in HS snack in the community room and quickly returned to his room. He is observed sleeping and does not appear to be having difficulty. S/I, H/I: Denies A/VH: Denies Sleep: Refer to sleep assessment ADL's: Independent Group attendance: NA Were meds taken: Yes Any med S/E: None observed or reported Mental Status Exam Appearance: Appropriately dressed in green unit attire Behavior: Pleasant and cooperative, self-isolative Speech: Clear, audible, minimal Mood: Good. Affect: Constricted Thought process: Disorganized Thought Content: Meeting needs. Cognition: A&O x2 Insight: Poor. Judgment: Poor. Interventions PRN's used: None Therapeutic interventions: 1:1 assessment, therapeutic conversation, active listening, medication administration/education/monitoring, encouragement of personal hygiene, behavior monitoring and intervention as needed; reality orientation, distraction, redirection, limit setting, positive reinforcement, and Q 15 minute safety checks. Restraints/seclusion/emergency medication: NA Justification of Continued Inpatient Treatment: Pt in need of stabilization with medication adjustment and monitoring in a safe and therapeutic environment.
[2021-08-02 07:46] VITALS: BP 132/86
[2021-08-02] MEDS: POTASSIUM BICARB 20meq eff tab 20 MEQ TABLET.EFF PO SCH (08:18)
[2021-08-02] MEDS: amantadine 100 MG capsule PO SCH ×2 (08:19→20:40)
[2021-08-02] MEDS: pantoprazole 40mg Tablet.DR PO SCH (08:19)
[2021-08-02] MEDS: clozapine 100mg tablet PO SCH ×2 (08:20→20:40)
[2021-08-02] MEDS: ibuprofen tablet 400 MG TABLET PO SCH ×3 (08:20→20:40)
[2021-08-02] MEDS: lactobacillus rhamnosus 10,000 MMU CELLS/CAPSULE PO SCH ×2 (08:20→20:47)
[2021-08-02] MEDS: docusate sod 100mg capsule PO SCH ×2 (08:20→20:40)
--- NOTE | 2021-08-02 17:19 | NUR ---
Nursing Progress Note: Legal hold: Tcon Client on involuntary status for GD Report received from GAVIOTA Mendez with use of SBAR Reason for admit: Patient admitted to [facility] on 5150 GD. 5150 states Genoveva (payee) was concerned he could not utilize his funds and they were concerned he could not obtain food and clothing due to his mental illness. He has a wound to his right finger and states delusions regarding a nuclear submarine. Public guardian will serve 5 day notice for temporary conservatorship. He does have a history of LPS conservatorship. What has happened this shift: Pt spends all day in bed. Pt up for snacks and meals. Pt complains of headache. Pt gets routine motrin TID. Pt denies any needs. Pts finger wound has healed and pt denies any pain. Pt answers questions yes and no but does not elaborate on any questions. Pt cooperative, isolative. S/I, H/I: Denies. A/VH: Endorses AH Sleep: Naps off and on throughout the day. ADL's: Independent Group attendance: NA Were meds taken: Yes Any med S/E: None observed or reported Mental Status Exam Appearance: Male, disheveled, dental carries/broken teeth, wearing green scrubs. Behavior: Cooperative, self-isolative Speech: Soft spoken, mumbles Mood: Fine. Affect: Constricted Thought process: Disorganized Thought Content: Meeting needs. Cognition: A&O x2 Insight: Poor. Judgment: Poor. Interventions PRN's used: None Therapeutic interventions: 1:1 assessment, therapeutic conversation, active listening, medication administration/education/monitoring, encouragement of personal hygiene, behavior monitoring and intervention as needed; reality orientation, distraction, redirection, limit setting, positive reinforcement, and Q 15 minute safety checks. Restraints/seclusion/emergency medication: N/A Justification of Continued Inpatient Treatment: Pt in need of stabilization with medication adjustment and monitoring in a safe and therapeutic environment.
[2021-08-02 19:16] VITALS: BP 95/60
[2021-08-02] MEDS: clozapine 25mg tablet PO SCH (20:40)
--- NOTE | 2021-08-03 03:12 | NUR ---
Nursing Progress Note: Legal hold: TCON Client on involuntary status for GD Report received from KEIRA Cooper with use of SBAR Reason for admit: Patient admitted to [facility] on 5150 GD. 5150 states Genoveva (payee) was concerned he could not utilize his funds and they were concerned he could not obtain food and clothing due to his mental illness. He has a wound to his right finger and states delusions regarding a nuclear submarine. Public guardian will serve 5 day notice for temporary conservatorship. He does have a history of LPS conservatorship. What has happened this shift: Patient laying in bed awake at the beginning of shift. Pleasant and cooperative with care; compliant with medication. Denies SI, HI, A/VH. Patient continues to isolate to his room; briefly came out during HS snack. No irritability or agitation observed this shift; laughing with radio news writer during assessment. He is observed sleeping and does not appear to be having difficulty sleeping. S/I, H/I: Denies A/VH: Denies Sleep: Refer to sleep assessment ADL's: Independent Group attendance: NA Were meds taken: Yes Any med S/E: None observed or reported Mental Status Exam Appearance: Appropriately dressed in green unit attire Behavior: Pleasant and cooperative, self-isolative Speech: Clear, audible, minimal Mood: Good. Affect: Constricted Thought process: Disorganized Thought Content: Meeting needs Cognition: A&O x2 Insight: Poor. Judgment: Poor. Interventions PRN's used: None Therapeutic interventions: 1:1 assessment, therapeutic conversation, active listening, medication administration/education/monitoring, encouragement of personal hygiene, behavior monitoring and intervention as needed; reality orientation, distraction, redirection, limit setting, positive reinforcement, and Q 15 minute safety checks. Restraints/seclusion/emergency medication: NA Justification of Continued Inpatient Treatment: Pt in need of stabilization with medication adjustment and monitoring in a safe and therapeutic environment.
[2021-08-03 07:49] VITALS: BP 106/54
[2021-08-03] MEDS: lactobacillus rhamnosus 10,000 MMU CELLS/CAPSULE PO SCH ×2 (08:00→20:18)
[2021-08-03] MEDS: POTASSIUM BICARB 20meq eff tab 20 MEQ TABLET.EFF PO SCH (08:00)
[2021-08-03] MEDS: docusate sod 100mg capsule PO SCH ×2 (08:01→20:18)
[2021-08-03] MEDS: ibuprofen tablet 400 MG TABLET PO SCH ×3 (08:01→20:18)
[2021-08-03] MEDS: clozapine 100mg tablet PO SCH ×2 (08:01→20:18)
[2021-08-03] MEDS: amantadine 100 MG capsule PO SCH ×2 (08:01→20:18)
[2021-08-03] MEDS: pantoprazole 40mg Tablet.DR PO SCH (08:01)
[2021-08-03 15:01] VITALS: BP 97/71
--- NOTE | 2021-08-03 15:30 | NUR ---
Critical lab: Pt is positive for Covid. Pt is isolated.
[2021-08-03 17:07] LABS: D-DIMER 0.24 MG/L FEU (0-0.50)
--- NOTE | 2021-08-03 17:48 | NUR ---
Nursing Progress Note: Legal hold: T-Con Client on involuntary status for GD Report received from nurse with use of SBAR: Courtney Cleary RN Why are they here: Pt was at [facility] from 05/07/21-06/10/21 for GD/failure to thrive. Pt was discharged, re-evaluated and placed on a 5150. He was readmitted to [facility] on day of discharge 06/10/21. Pt has a Hx of Schizophrenia, depression, and anxiety. Pt has intermittent CAH to kill himself, pt is depressed and anhedonic, he has severely declined in his ADLs. Pt has a DTI ulcer on his right heel. Plan is for him to be conserved. Assessment What has happened this shift: Received patient sleeping in bed at shift change. Breakfast is served in the patients room, and he is able to eat independently. Orthostatic vitals were performed and were WNL, although patient reports dizziness with standing. Patient takes his medications without hesitation. A&D ointment applied to right heel, which is healing well. Patient does have some tardive dyskinesia AEB abnormal mouth movements, patient is on Cogentin 1 mg b.i.d. Patient denies AVH. Patient is eating well and had a BM today. Patient has to be reminded to use walker. S/I, H/I: Denies A/VH: Pt. denies, does not appear to be responding to internal stimuli Sleep: Sleep hours are 7.5, and pt. naps intermittently ADL's: Pt. requires direction and encouragement. He requires stand-by assistance with transfers and a FWW r/t ongoing weakness/unsteadiness and fall precautions. Group attendance: N/A Were meds taken: Yes Any med S/E: None Mental Status Exam Appearance: male with salt and pepper hair wearing green scrubs. Eye contact: Good Behavior: Cooperative, withdrawn Speech: Soft. Pt. responds to closed-ended questions with a minimal response. Mood: Pleasant. Affect: Blunted. Thought process: Poverty of thought with possible thought blocking Thought Content: Goal oriented Cognition: A&O x4 Insight: Poor Judgment: Poor Interventions PRN's used: None Therapeutic interventions: Maintained a safe and supportive environment, ensured contract for safety, maintained fall precautions and provided stand-by assistance with transfers, monitored rt. heel and floated heels while in bed, obtained orthostatic V/S per orders, continued to encourage Q2 hour toileting and monitored for incontinence episodes, provided active listening and positive encouragement, encouraged participation on the unit, and maintained Q 15min safety checks. Restraints/seclusion/emergency medication: N/A Justification of Continued Inpatient Treatment: Per Dr. Salinas, pt. continues to require medication adjustments and a safe and supportive environment.
--- NOTE | 2021-08-03 17:53 | NUR ---
Nursing Progress Note: Legal hold: T-con Client on involuntary status for GD Report received from GAVIOTA Mendez with use of SBAR Reason for admit: Patient admitted to [facility] on 5150 GD. 5150 states [employer] (payee) was concerned he could not utilize his funds and they were concerned he could not obtain food and clothing due to his mental illness. He has a wound to his right finger and states delusions regarding a nuclear submarine. Public guardian will serve 5 day notice for temporary conservatorship. He does have a history of LPS conservatorship. What has happened this shift: Received pt. sleeping in bed at shift change. Patient awakens for breakfast and takes his medications without incident. Patient has stayed in bed most of the day. In the afternoon, patient reported that he feels sick. Vitals taken and WNL. Patient complains of chest pain, EKG performed, rapid Covid test performed. Patient appears ill and reports dizziness with standing. Covid positive. C-reactive protein is high at 0.87. D-dimer is WNL. Patient is in isolation in his room. S/I, H/I: Denies. A/VH: Endorses AH Sleep: 6.5 hrs NOC. Slept most of the day. ADL's: Independent Group attendance: NA Were meds taken: Yes Any med S/E: None observed or reported Mental Status Exam Appearance: Male, disheveled, dental carries/broken teeth, wearing green scrubs. Behavior: Cooperative, self-isolative Speech: Soft spoken, mumbles Mood: I dont feel well. Affect: Constricted Thought process: Disorganized Thought Content: Meeting needs. Cognition: A&O x2 Insight: Poor. Judgment: Poor. Interventions PRN's used: None Therapeutic interventions: 1:1 assessment, therapeutic conversation, active listening, medication administration/education/monitoring, encouragement of personal hygiene, behavior monitoring and intervention as needed; reality orientation, distraction, redirection, limit setting, positive reinforcement, and Q 15 minute safety checks. Restraints/seclusion/emergency medication: N/A Justification of Continued Inpatient Treatment: Pt in need of stabilization with medication adjustment and monitoring in a safe and therapeutic environment.
[2021-08-03 19:51] VITALS: BP 89/55
[2021-08-03] MEDS: clozapine 25mg tablet PO SCH (20:18)
[2021-08-03] MEDS: benzocaine/menthol oral lozeng 1 EACH BOX MM PRN (20:20)
--- NOTE | 2021-08-04 01:48 | NUR ---
Nursing Progress Note: Legal hold: TCON Client on involuntary status for GD Report received from KEIRA Cooper with use of SBAR Reason for admit: Patient admitted to [facility] on 5150 GD. 5150 states [employer] (payee) was concerned he could not utilize his funds and they were concerned he could not obtain food and clothing due to his mental illness. He has a wound to his right finger and states delusions regarding a nuclear submarine. Public guardian will serve 5 day notice for temporary conservatorship. He does have a history of LPS conservatorship. What has happened this shift: Patient awake in bed at the beginning of shift. Remains on Covid isolation. Pleasant and cooperative with care; compliant with medication. PRN Chloraseptic lozenge provided for c/o sore throat. Patient denies SI, HI, A/VH; appears paranoid and delusional this shift. Patient reported not believing he has Covid and explained to policy writer sales he has been vaccinated. Patient BP some what low this shift and he was encouraged to drink water. Patient reported that he did not want to drink the water d/t the water being filtered through a sperm plant. Patient was provided juice boxes in which he agreed to drink. Patient was provide HS snack and observed sleeping with no apparent distress. S/I, H/I: Denies A/VH: Denies Sleep: Refer to sleep assessment ADL's: Independent Group attendance: NA Were meds taken: Yes Any med S/E: None observed or reported Mental Status Exam Appearance: Appropriately dressed in green unit attire Behavior: Pleasant and cooperative, social with policy writer sales Speech: Clear, audible, somewhat pressured Mood: Good. Affect: Blunted Thought process: Disorganized, paranoid, delusions Thought Content: Meeting needs, delusions, sore throat Cognition: A&O x2 Insight: Poor. Judgment: Poor. Interventions PRN's used: Chloraseptic lozenge Therapeutic interventions: 1:1 assessment, therapeutic conversation, active listening, medication administration/education/monitoring, encouragement of personal hygiene, behavior monitoring and intervention as needed; reality orientation, distraction, redirection, limit setting, positive reinforcement, and Q 15 minute safety checks. Restraints/seclusion/emergency medication: NA Justification of Continued Inpatient Treatment: Pt in need of stabilization with medication adjustment and monitoring in a safe and therapeutic environment.
[2021-08-04] MEDS: benzocaine/menthol oral lozeng 1 EACH BOX MM PRN (04:07)
[2021-08-04] MEDS: lactobacillus rhamnosus 10,000 MMU CELLS/CAPSULE PO SCH ×2 (07:42→20:23)
[2021-08-04] MEDS: amantadine 100 MG capsule PO SCH ×2 (07:42→20:23)
[2021-08-04] MEDS: pantoprazole 40mg Tablet.DR PO SCH (07:42)
[2021-08-04] MEDS: POTASSIUM BICARB 20meq eff tab 20 MEQ TABLET.EFF PO SCH (07:42)
[2021-08-04] MEDS: clozapine 100mg tablet PO SCH ×2 (07:42→20:23)
[2021-08-04] MEDS: docusate sod 100mg capsule PO SCH ×2 (07:42→20:23)
[2021-08-04] MEDS: ibuprofen tablet 400 MG TABLET PO SCH ×3 (07:43→20:30)
[2021-08-04 08:03] LABS: BASOPHILS % (AUTO) 0.4 % (0-1); EOSINOPHILS # (AUTO) 0.1 X10'3 (0-0.9); EOSINOPHILS % (AUTO) 2.4 % (0-6); HEMATOCRIT 39.5 % (42.0-52.0); HEMOGLOBIN 13.4 g/dl (14.0-17.9); LYMPHOCYTES # (AUTO) 0.8 X10'3 (1.1-4.8); LYMPHOCYTES % (AUTO) 24.6 % (21-51); MEAN CORPUSCULAR HEMOGLOBIN 30.4 PG (27.0-31.0); MEAN CORPUSCULAR HGB CONC 33.9 g/dL (33.0-36.5); MEAN CORPUSCULAR VOLUME 89.7 FL (78-98); MONOCYTES # (AUTO) 0.4 X10'3 (0-0.9); NEUTROPHILS % (AUTO) 61.6 % (42-75); PLATELET COUNT 162 X10'3 (140-440); RED CELL DISTRIBUTION WIDTH 14.3 % (11.5-14.5); WHITE BLOOD COUNT 3.3 X10'3 (4.5-11.0)
[2021-08-04 08:32] VITALS: BP 108/76
[2021-08-04 10:25] LABS: ALANINE AMINOTRANSFERASE 33 U/L (12-78); ALBUMIN 3.4 G/DL (3.4-5.0); ALKALINE PHOSPHATASE 70 IU/L (46-116); ANION GAP 6 (8-16); ASPARTATE AMINO TRANSFERASE 19 U/L (10-37); BILIRUBIN,TOTAL 0.2 MG/DL (0.1-1.0); BLOOD UREA NITROGEN 9 MG/DL (7-18); BUN/CREATININE RATIO 13.6 (5.4-32.0); C-REACTIVE PROTEIN 0.91 MG/DL (0.0-0.5); CALCIUM 8.3 MG/DL (8.5-10.1); CHLORIDE 107 MMOL/L (99-107); CREATININE 0.66 MG/DL (0.60-1.10); GLUCOSE 98 MG/DL (70-104); POTASSIUM 4.6 MMOL/L (3.5-5.1); SODIUM 141 MMOL/L (135-145); TOTAL CARBON DIOXIDE 28.1 MMOL/L (24-32); TOTAL PROTEIN 6.7 G/DL (6.4-8.2); eGFR > 90 ML/MIN
[2021-08-04 12:16] LABS: D-DIMER 0.33 MG/L FEU (0-0.50)
--- NOTE | 2021-08-04 14:18 | NUR ---
Reassessment: Pt dx COVID-19 08/03 per EMR. Pt currently on regular diet w/ ~100% intake of meals. Will add double eggs WB to meet new estimated protein needs, dietary notified. LBM 08/03, receiving routine colace. No further nutrition intervention at this time. Will continue to monitor. Recommendations: 1. Continue regular diet as tolerated; double eggs with breakfast 2. Bowel care per Rx 3. Weekly wt Addendum: 08/04/21 at [address] Amended: Links added. Addendum: 08/04/21 at [address] HERMILA has reviewed and approves of above note.
--- NOTE | 2021-08-04 17:57 | NUR ---
Nursing Progress Note: Kenneth Hernadez Legal hold: LPS Client on involuntary status for GD Report received from GAVIOTA Carson with use of SBAR Reason for admit: Patient admitted to [facility] on 5150 GD. 5150 states [employer] (payee) was concerned he could not utilize his funds and they were concerned he could not obtain food and clothing due to his mental illness. He has a wound to his right finger and states delusions regarding a nuclear submarine. Public guardian will serve 5 day notice for temporary conservatorship. He does have a history of LPS conservatorship. What has happened this shift: Received pt. sleeping in bed at shift change. Pt. woke for medications and 1:1 assessment. Pt. denies SI, HI, but endorses delusions stating, COVID is making his body change, legs are growing, and something wants to eat my flesh. Pt. remained quarantined in his room per policy, all meals eaten with at least 50% intake. Pt. has been encouraged to increase water throughout the shift. Pt. continues c/o COVID 19 symptoms in regards to nasal congestion and fatigue however no c/o SOB O2 sats remain WNL, VSS. Pt. has increased episodes of masturbation throughout the shift resulting in bodily fluids on and near the bed/wall. Pt. has been encouraged to remain independent and tend to his personal hygiene and cleanliness; pt. is receptive. S/I, H/I: Denies. A/VH: Endorses AH, denies VH Sleep: Napped intermittently ADL's: Independent Group attendance: N/A Were meds taken: Yes Any med S/E: None observed or reported Mental Status Exam Appearance: Male, dental carries/broken teeth, wearing green scrubs. Behavior: Cooperative, self-isolative Speech: Soft spoken, mumbles Mood: I am sick. Affect: Constricted Thought process: Disorganized Thought Content: Meeting needs. Cognition: A&O x2 Insight: Poor. Judgment: Poor. Interventions PRN's used: None Therapeutic interventions: 1:1 assessment, therapeutic conversation, active listening, medication administration/education/monitoring, encouragement of personal hygiene, behavior monitoring and intervention as needed; reality orientation, distraction, redirection, limit setting, positive reinforcement, and Q 15 minute safety checks. Restraints/seclusion/emergency medication: N/A Justification of Continued Inpatient Treatment: Pt in need of stabilization with medication adjustment and monitoring in a safe and therapeutic environment.
[2021-08-04 19:23] VITALS: BP 109/77
[2021-08-04] MEDS: ibuprofen tablet 400 MG TABLET PO PRN (19:54)
[2021-08-04] MEDS: clozapine 25mg tablet PO SCH (20:22)
--- NOTE | 2021-08-05 00:44 | NUR ---
Nursing Progress Note: Legal hold: LPS Client on involuntary status for GD Report received from GAVIOTA Cooper with use of SBAR Reason for admit: Patient admitted to [facility] on 5150 GD. 5150 states [employer] (payee) was concerned he could not utilize his funds and they were concerned he could not obtain food and clothing due to his mental illness. He has a wound to his right finger and states delusions regarding a nuclear submarine. Public guardian will serve 5 day notice for temporary conservatorship. He does have a history of LPS conservatorship. What has happened this shift: Pt asleep in room at start of shift. Awakened easily Pt irritable but cooperative for assessment. He denies MH S/S but he makes makes delusional statement. "This room is still full of electricity" and "I used to not have arms and legs." Maintained isolation for Covid. Pt has productive cough but unable to assess sputum. Lungs sounds are clear, no c/o SOB O2 sats 94% on RA VSS WNL and he is afebrile. C/O sore throat given Chloraseptic lozenge. S/I, H/I: Denies. A/VH: Denies Sleep: asleep at this time ADL's: Independent Group attendance: N/A Were meds taken: Yes Any med S/E: None observed or reported Mental Status Exam Appearance: Male, dental carries/broken teeth, wearing green scrubs. Behavior: Cooperative, self-isolative Speech: Soft spoken, mumbles Mood: I am sick. Affect: Constricted Thought process: Disorganized Thought Content: Meeting needs. Cognition: A&O x2 Insight: Poor. Judgment: Poor. Interventions PRN's used: None Therapeutic interventions: 1:1 assessment, therapeutic conversation, active listening, medication administration/education/monitoring, encouragement of personal hygiene, behavior monitoring and intervention as needed; reality orientation, distraction, redirection, limit setting, positive reinforcement, and Q 15 minute safety checks. Restraints/seclusion/emergency medication: N/A Justification of Continued Inpatient Treatment: Pt in need of stabilization with medication adjustment and monitoring in a safe and therapeutic environment.
[2021-08-05 08:00] VITALS: BP 101/79
[2021-08-05] MEDS: docusate sod 100mg capsule PO SCH ×2 (08:03→19:31)
[2021-08-05] MEDS: lactobacillus rhamnosus 10,000 MMU CELLS/CAPSULE PO SCH ×2 (08:03→19:31)
[2021-08-05] MEDS: pantoprazole 40mg Tablet.DR PO SCH (08:03)
[2021-08-05] MEDS: clozapine 100mg tablet PO SCH (08:03)
[2021-08-05] MEDS: benzocaine/menthol oral lozeng 1 EACH BOX MM PRN ×2 (08:04→13:37)
[2021-08-05] MEDS: POTASSIUM BICARB 20meq eff tab 20 MEQ TABLET.EFF PO SCH (08:04)
[2021-08-05] MEDS: ibuprofen tablet 400 MG TABLET PO SCH ×3 (08:04→19:31)
[2021-08-05] MEDS: amantadine 100 MG capsule PO SCH ×2 (08:04→19:31)
[2021-08-05 08:30] LABS: BASOPHILS % (AUTO) 0.2 % (0-1); EOSINOPHILS # (AUTO) 0.2 X10'3 (0-0.9); EOSINOPHILS % (AUTO) 6.3 % (0-6); HEMATOCRIT 38.8 % (42.0-52.0); LYMPHOCYTES % (AUTO) 39.3 % (21-51); MEAN CORPUSCULAR HEMOGLOBIN 30.1 PG (27.0-31.0); MEAN CORPUSCULAR HGB CONC 33.6 g/dL (33.0-36.5); MEAN CORPUSCULAR VOLUME 89.7 FL (78-98); MEAN PLATELET VOLUME 8.1 FL (7.4-10.4); MONOCYTES # (AUTO) 0.3 X10'3 (0-0.9); NEUTROPHILS % (AUTO) 43.2 % (42-75); PLATELET COUNT 170 X10'3 (140-440); RED BLOOD COUNT 4.33 X10'6 (4.70-6.10); RED CELL DISTRIBUTION WIDTH 13.8 % (11.5-14.5); WHITE BLOOD COUNT 2.4 X10'3 (4.5-11.0)
[2021-08-05 09:14] LABS: D-DIMER 0.27 MG/L FEU (0-0.50)
[2021-08-05 09:54] LABS: PLATELET ESTIMATE NORMAL; TOTAL CELLS COUNTED 100
[2021-08-05 10:47] LABS: ALANINE AMINOTRANSFERASE 29 U/L (12-78); ALBUMIN 3.1 G/DL (3.4-5.0); ALBUMIN/GLOBULIN RATIO 0.9 (1.1-1.5); ALKALINE PHOSPHATASE 70 IU/L (46-116); ANION GAP 3 (8-16); ASPARTATE AMINO TRANSFERASE 16 U/L (10-37); BILIRUBIN,TOTAL 0.2 MG/DL (0.1-1.0); BLOOD UREA NITROGEN 9 MG/DL (7-18); BUN/CREATININE RATIO 12.5 (5.4-32.0); C-REACTIVE PROTEIN 0.77 MG/DL (0.0-0.5); CALCIUM 7.9 MG/DL (8.5-10.1); CHLORIDE 109 MMOL/L (99-107); CREATININE 0.72 MG/DL (0.60-1.10); GLUCOSE 103 MG/DL (70-104); POTASSIUM 4.6 MMOL/L (3.5-5.1); SODIUM 140 MMOL/L (135-145); TOTAL CARBON DIOXIDE 28.4 MMOL/L (24-32); TOTAL PROTEIN 6.4 G/DL (6.4-8.2); eGFR > 90 ML/MIN
--- NOTE | 2021-08-05 12:10 | NUR ---
Nursing Progress Note: Legal hold:LPS Client on involuntary status for GD. Report received from nurse with use of SBAR: KEIRA Ridley Why are they here: Patient admitted to [facility] on 5150 GD. 5150 states [employer] (payee) was concerned he could not utilize his funds and they were concerned he could not obtain food and clothing due to his mental illness. He has a wound to his right finger and states delusions regarding a nuclear submarine. Public guardian will serve 5 day notice for temporary conservatorship. He does have a history of LPS conservatorship. Assessment What has happened this shift: Received pt. sleeping in bed at the beginning of the shift, he was awoken for ordered labs. Pt. again had an episode of masturbation resulting in bodily fluids on and near the bed/wall. He was again encouraged to clean up and maintain his own personal hygiene and was again receptive. Pt. remains on isolation for Covid precautions and continues to remain in his room throughout the shift. Pt. at 100% of his breakfast, and V/S are WNL. He c/o a sore throat and a Benzocaine Lozenge was administered with effectiveness. Lung sounds are clear bilaterally to auscultation and pt. denies any SOB. He continues to exhibit an intermittent strong and productive cough, with a small amount of clear sputum expressed. 1:1 was completed at bedside, pt. presents as cooperative, irritable, restless, guarded, and withdrawn. He is A&O X2, to name and place only. When questioned by this fiction writer regarding why he believes he is here pt. states irritably, "Because I was poisoned." This is an ongoing paranoid delusion that he expresses. Pt. denies any S/I, H/I, or A/V/HOLGUIN, and perseverates on his desire to discharge back to the hotel he was living at previously. He states, "I'm tired of being here, I want to leave." Throughout the interaction, pt. makes various paranoid delusional statements. For example, when auscultating pt's BP he states, "Make sure you put the cuff on tight, otherwise the [employer] show up." He is disorganized in his through process. S/I, H/I: Denies A/VH: Denies, pt. does not appear internally preoccupied Sleep: Sleep hours are 7 ADL's: Pt. requires some direction and encouragement Group attendance: N/A Were meds taken: Yes Any med S/E: Decreased WBC count, will endorse to Dr. Childress Mental Status Exam Appearance: Somewhat disheveled r/t laying in bed, pt. continues to be on isolation Eye contact: Fair Behavior: Cooperative, irritable, restless, guarded, and withdrawn Speech: Irritable, responds to direct questions only Mood: Irritably Affect: Constricted Thought process: Disorganized Thought Content: Paranoid delusions Cognition: A&O X2 (name and place) Insight: Poor Judgment: Poor Interventions PRN's used: Benzocaine Lozenge Therapeutic interventions: Maintained a safe and supportive environment, ensured contract for safety, provided clear and simple instructions, attempted to orient to reality, monitored for s/s of infection and provided needed interventions, maintained isolation for Covid precautions, and maintained Q 15 min safety checks. Restraints/seclusion/emergency medication: N/A Justification of Continued Inpatient Treatment: Pt. continues to require a safe and supportive environments and medication adjustments. He remains on isolation for Covid precautions.
--- NOTE | 2021-08-05 15:50 | NUR ---
Endorsed pt's decreased WBC count of 2.4 and a neutrophil count of 1.[address] Childress who discontinued pt's Clozaril and ordered CBC labs X7 days. C-reactive Protein has improved to 0.77. Also endorsed to Dr. Villar who advised this promotion writer to continue to monitor labs for the next couple of days, these labs have already been ordered. Will continue to monitor.
[2021-08-05 19:35] VITALS: BP 103/66
--- NOTE | 2021-08-05 21:40 | NUR ---
Nursing Progress Note: Legal hold:LPS Client on involuntary status for GD. Report received from nurse with use of SBAR: KEIAR Cooper Why are they here: Patient admitted to [facility] on 5150 GD. 5150 states [employer]va (payee) was concerned he could not utilize his funds and they were concerned he could not obtain food and clothing due to his mental illness. He has a wound to his right finger and states delusions regarding a nuclear submarine. Public guardian will serve 5 day notice for temporary conservatorship. He does have a history of LPS conservatorship. Assessment What has happened this shift: Pt was napping at the beginning of shift. He reports the he would like a "book store associate". Pt. remains on isolation for Covid precautions and continues to remain in his room throughout the shift. Pt asks if he can leave and was explained he needs to be here until he is doing better. V/S are WNL. S/I, H/I: Denies A/VH: Denies, pt. does not appear internally preoccupied Sleep: see sleep hours ADL's: Pt. requires some direction and encouragement Group attendance: N/A Were meds taken: Yes Any med S/E: Decreased WBC count Mental Status Exam Appearance: Somewhat disheveled r/t laying in bed, pt. continues to be on isolation Eye contact: Fair Behavior: Cooperative, irritable, restless, guarded, and withdrawn Speech: Irritable, responds to direct questions only Mood: Irritably Affect: Constricted Thought process: Disorganized Thought Content: Paranoid delusions Cognition: A&O X2 (name and place) Insight: Poor Judgment: Poor Interventions PRN's used: none Therapeutic interventions: Maintained a safe and supportive environment, ensured contract for safety, provided clear and simple instructions, attempted to orient to reality, monitored for s/s of infection and provided needed interventions, maintained isolation for Covid precautions, and maintained Q 15 min safety checks. Restraints/seclusion/emergency medication: N/A Justification of Continued Inpatient Treatment: Pt. continues to require a safe and supportive environments and medication adjustments. He remains on isolation for Covid precautions.
[2021-08-06 07:43] VITALS: BP 127/85
[2021-08-06 07:50] LABS: BASOPHILS % (AUTO) 0.2 % (0-1); EOSINOPHILS # (AUTO) 0.1 X10'3 (0-0.9); EOSINOPHILS % (AUTO) 5.5 % (0-6); HEMATOCRIT 39.7 % (42.0-52.0); HEMOGLOBIN 13.2 g/dl (14.0-17.9); LYMPHOCYTES # (AUTO) 0.7 X10'3 (1.1-4.8); LYMPHOCYTES % (AUTO) 34.2 % (21-51); MEAN CORPUSCULAR HEMOGLOBIN 29.8 PG (27.0-31.0); MEAN CORPUSCULAR HGB CONC 33.3 g/dL (33.0-36.5); MEAN CORPUSCULAR VOLUME 89.7 FL (78-98); MEAN PLATELET VOLUME 7.9 FL (7.4-10.4); MONOCYTES # (AUTO) 0.3 X10'3 (0-0.9); MONOCYTES % (AUTO) 12.1 % (2-12); PLATELET COUNT 173 X10'3 (140-440); RED BLOOD COUNT 4.43 X10'6 (4.70-6.10); WHITE BLOOD COUNT 2.1 X10'3 (4.5-11.0)
[2021-08-06] MEDS: amantadine 100 MG capsule PO SCH ×2 (08:01→20:38)
[2021-08-06] MEDS: POTASSIUM BICARB 20meq eff tab 20 MEQ TABLET.EFF PO SCH (08:01)
[2021-08-06] MEDS: docusate sod 100mg capsule PO SCH ×2 (08:01→20:38)
[2021-08-06] MEDS: lactobacillus rhamnosus 10,000 MMU CELLS/CAPSULE PO SCH ×2 (08:02→20:38)
[2021-08-06] MEDS: pantoprazole 40mg Tablet.DR PO SCH (08:02)
[2021-08-06] MEDS: ibuprofen tablet 400 MG TABLET PO SCH ×3 (08:02→20:38)
[2021-08-06] MEDS: benzocaine/menthol oral lozeng 1 EACH BOX MM PRN (08:02)
[2021-08-06 08:33] LABS: ALANINE AMINOTRANSFERASE 34 U/L (12-78); ALBUMIN 3.3 G/DL (3.4-5.0); ALKALINE PHOSPHATASE 74 IU/L (46-116); ANION GAP 9 (8-16); ASPARTATE AMINO TRANSFERASE 17 U/L (10-37); BILIRUBIN,TOTAL 0.2 MG/DL (0.1-1.0); BLOOD UREA NITROGEN 12 MG/DL (7-18); BUN/CREATININE RATIO 16.2 (5.4-32.0); C-REACTIVE PROTEIN 0.39 MG/DL (0.0-0.5); CALCIUM 8.2 MG/DL (8.5-10.1); CHLORIDE 107 MMOL/L (99-107); CREATININE 0.74 MG/DL (0.60-1.10); GLUCOSE 95 MG/DL (70-104); POTASSIUM 4.4 MMOL/L (3.5-5.1); SODIUM 142 MMOL/L (135-145); TOTAL CARBON DIOXIDE 25.9 MMOL/L (24-32); TOTAL PROTEIN 6.7 G/DL (6.4-8.2); eGFR > 90 ML/MIN
[2021-08-06 09:17] LABS: D-DIMER 0.24 MG/L FEU (0-0.50)
[2021-08-06 10:06] LABS: LYMPHOCYTES % (MANUAL) 29 % (21-51); NEUTROPHILS % (MANUAL) 52 % (42-75); TOTAL CELLS COUNTED 100
[2021-08-06 10:07] LABS: PLATELET ESTIMATE NORMAL
--- NOTE | 2021-08-06 14:05 | NUR ---
Nursing Progress Note: Legal hold:LPS Client on involuntary status for GD. Report received from nurse with use of SBAR: KEIRA Ridley Why are they here: Patient admitted to [facility] on 5150 GD. 5150 states [employer]va (payee) was concerned he could not utilize his funds and they were concerned he could not obtain food and clothing due to his mental illness. He has a wound to his right finger and states delusions regarding a nuclear submarine. Public guardian will serve 5 day notice for temporary conservatorship. He does have a history of LPS conservatorship. Assessment What has happened this shift: Received pt. sleeping in bed at the beginning of the shift, he was again awoken for ordered labs. Pt. remains on isolation for Covid precautions and continues to remain in his room throughout the shift. His V/S remain WNL, pt. denies any pain, SOB, any other adverse s/s. Lung sounds remain clear bilaterally to auscultation, and pt. reports his cough has decreased and he is "Feeling better." 1:1 was completed at bedside, pt. presents as cooperative, guarded, and withdrawn. He continues to deny any S/I, H/I, or A/V/HOLGUIN, but does endorse paranoid delusions that random others may want to hurt him. When questioned by this tech writer regarding in which way he believes others will try to hurt him, pt. states in a disorganized manner, "Make my teeth rotten." Pt. opens his mouth to show this tech writer his teeth. Pt. does not exhibit any irritability this shift as he did yesterday, will continue to monitor. S/I, H/I: Denies A/VH: Denies, pt. does not appear internally preoccupied Sleep: Sleep hours are 7 ADL's: Pt. requires some direction and encouragement Group attendance: N/A Were meds taken: Yes Any med S/E: Decreased WBC count, Clozapine has been discontinued and pt. is being monitored by daily CBCs. Mental Status Exam Appearance: Somewhat disheveled r/t laying in bed, pt. continues to be on isolation Eye contact: Fair Behavior: Cooperative, guarded, and withdrawn Speech: Soft, responds to direct questions only with a minimal response Mood: Guarded Affect: Constricted Thought process: Disorganized Thought Content: Paranoid delusions Cognition: A&O X2 (name and place) Insight: Poor Judgment: Poor Interventions PRN's used: Benzocaine Lozenge Therapeutic interventions: Maintained a safe and supportive environment, ensured contract for safety, provided clear and simple instructions, attempted to orient to reality, monitored for s/s of infection and provided needed interventions, maintained isolation for Covid precautions, and maintained Q 15 min safety checks. Restraints/seclusion/emergency medication: N/A Justification of Continued Inpatient Treatment: Pt. continues to require a safe and supportive environment and medication adjustments. He remains on isolation for Covid precautions.
[2021-08-06 20:00] VITALS: BP 114/88
--- NOTE | 2021-08-07 01:37 | NUR ---
Nursing Progress Note: Legal hold:LPS Client on involuntary status for GD. Report received from nurse with use of SBAR: KEIRA Cooper Why are they here: Patient admitted to [facility] on 5150 GD. 5150 states [employer]va (payee) was concerned he could not utilize his funds and they were concerned he could not obtain food and clothing due to his mental illness. He has a wound to his right finger and states delusions regarding a nuclear submarine. Public guardian will serve 5 day notice for temporary conservatorship. He does have a history of LPS conservatorship. Assessment What has happened this shift: Pt is still in isolation due to COVID precautions, pt states he is "bored". Pt makes good eye contact and is cooperative with 1:1. Pt eats a snack and takes HS medications without issue. Pt smiles occasionally. S/I, H/I: Denies A/VH: Denies, pt. does not appear internally preoccupied Sleep: see sleep hours ADL's: Pt. requires some direction and encouragement Group attendance: N/A Were meds taken: Yes Any med S/E: Decreased WBC count Mental Status Exam Appearance: Somewhat disheveled r/t laying in bed, pt. continues to be on isolation Eye contact: Fair Behavior: Cooperative Speech: WNL Mood: bored Affect: Constricted Thought process: Disorganized Thought Content: bored in his room Cognition: A&O X2 (name and place) Insight: Poor Judgment: Poor Interventions PRN's used: none Therapeutic interventions: Maintained a safe and supportive environment, ensured contract for safety, provided clear and simple instructions, attempted to orient to reality, monitored for s/s of infection and provided needed interventions, maintained isolation for Covid precautions, and maintained Q 15 min safety checks. Restraints/seclusion/emergency medication: N/A Justification of Continued Inpatient Treatment: Pt. continues to require a safe and supportive environments and medication adjustments. He remains on isolation for Covid precautions.
[2021-08-07] MEDS ORDERED: POTASSIUM BICARBONATE/CIT AC 10 MEQ TABLET.EFF PO SCH (07:37)
[2021-08-07 07:59] LABS: BASOPHILS % (AUTO) 0.2 % (0-1); EOSINOPHILS # (AUTO) 0.1 X10'3 (0-0.9); HEMATOCRIT 42.1 % (42.0-52.0); LYMPHOCYTES # (AUTO) 1.1 X10'3 (1.1-4.8); LYMPHOCYTES % (AUTO) 33.8 % (21-51); MEAN CORPUSCULAR HEMOGLOBIN 29.5 PG (27.0-31.0); MEAN CORPUSCULAR HGB CONC 33.2 g/dL (33.0-36.5); MEAN CORPUSCULAR VOLUME 89.1 FL (78-98); MONOCYTES # (AUTO) 0.4 X10'3 (0-0.9); MONOCYTES % (AUTO) 12.3 % (2-12); NEUTROPHILS # (AUTO) 1.7 X10'3 (1.8-7.7); NEUTROPHILS % (AUTO) 49.7 % (42-75); PLATELET COUNT 180 X10'3 (140-440); RED BLOOD COUNT 4.73 X10'6 (4.70-6.10); RED CELL DISTRIBUTION WIDTH 14.1 % (11.5-14.5); WHITE BLOOD COUNT 3.3 X10'3 (4.5-11.0)
[2021-08-07 08:00] VITALS: BP 142/98
[2021-08-07 08:12] LABS: ALANINE AMINOTRANSFERASE 30 U/L (12-78); ALBUMIN 3.5 G/DL (3.4-5.0); ALKALINE PHOSPHATASE 76 IU/L (46-116); ANION GAP 8 (8-16); ASPARTATE AMINO TRANSFERASE 15 U/L (10-37); BILIRUBIN,TOTAL 0.3 MG/DL (0.1-1.0); BLOOD UREA NITROGEN 13 MG/DL (7-18); CALCIUM 8.3 MG/DL (8.5-10.1); CHLORIDE 106 MMOL/L (99-107); CREATININE 0.81 MG/DL (0.60-1.10); GLUCOSE 91 MG/DL (70-104); POTASSIUM 4.6 MMOL/L (3.5-5.1); SODIUM 142 MMOL/L (135-145); TOTAL CARBON DIOXIDE 28.5 MMOL/L (24-32); TOTAL PROTEIN 7.1 G/DL (6.4-8.2); eGFR > 90 ML/MIN
[2021-08-07] MEDS: POTASSIUM BICARBONATE/CIT AC 10 MEQ TABLET.EFF PO SCH (08:20)
[2021-08-07] MEDS: amantadine 100 MG capsule PO SCH ×2 (08:21→20:37)
[2021-08-07] MEDS: ibuprofen tablet 400 MG TABLET PO SCH ×3 (08:21→20:37)
[2021-08-07] MEDS: pantoprazole 40mg Tablet.DR PO SCH (08:21)
[2021-08-07] MEDS: lactobacillus rhamnosus 10,000 MMU CELLS/CAPSULE PO SCH ×2 (08:21→20:37)
[2021-08-07] MEDS: docusate sod 100mg capsule PO SCH ×2 (08:21→20:38)
[2021-08-07 08:26] LABS: D-DIMER 0.22 MG/L FEU (0-0.50)
--- NOTE | 2021-08-07 09:17 | NUR ---
PLACEMENT UPDATE Kenneth has been accepted at [facility]. Admit date pending. His packet is also still in the queue at [facility]. BHAVANA Castanon
[2021-08-07] MEDS: LORazepam 1 MG tablet PO SCH ×2 (14:23→20:37)
--- NOTE | 2021-08-07 17:59 | NUR ---
Nursing Progress Note: Kenneth Legal hold: LPS Client on involuntary status for GD. Report received from nurse with use of SBAR: KEIRA Ridley Why are they here: Patient admitted to [facility] on 5150 GD. 5150 states Genoveva (payee) was concerned he could not utilize his funds and they were concerned he could not obtain food and clothing due to his mental illness. He has a wound to his right finger and states delusions regarding a nuclear submarine. Public guardian will serve 5 day notice for temporary conservatorship. He does have a history of LPS conservatorship. Assessment What has happened this shift: Patient received sleeping in his room at shift change. He was awoken to eat breakfast in his room. Patient remains on isolation for Covid precautions and contains to remain in his room throughout the shift. He continues to present as guarded and withdrawn yet cooperative with care. V/S remain WNL, patient denies any pain, SOB, or any other adverse s/s. He is noted sleeping intermittently throughout the day. Patient was receptive to 1:1 assessment and routine medication. Lungs sounds CTA. Patient continues to report an intermittent cough. He was observed sitting in his room looking out the window. He denies SI/HI, AH or VH. Does not appear to be responding to internal stimuli. Patient noted perseverating on discharge, endorsing that he wants to leave. He was observed sleeping in his room the majority of the day aside from snack and meal times. S/I, H/I: Denies A/VH: Denies, pt. does not appear internally preoccupied Sleep: Sleep hours are 8.25, slept intermittently throughout the shift ADL's: Pt. requires some direction and encouragement Group attendance: N/A Were meds taken: Yes Any med S/E: Decreased WBC count, Clozapine has been discontinued and pt. is being monitored by daily CBCs. Mental Status Exam Appearance: Somewhat disheveled r/t laying in bed, pt. continues to be on isolation. Shaven head. Eye contact: Fair Behavior: Cooperative, guarded, and withdrawn Speech: Soft, responds to direct questions only with a minimal response Mood: Guarded Affect: Constricted Thought process: Disorganized Thought Content: Meeting basic needs. Perseveration on discharge. Cognition: A&O X2 (name and place) Insight: Poor Judgment: Poor Interventions PRN's used: N/A Therapeutic interventions: Maintained a safe and supportive environment, ensured contract for safety, provided clear and simple instructions, attempted to orient to reality, monitored for s/s of infection and provided needed interventions, maintained isolation for Covid precautions, and maintained Q 15 min safety checks. Restraints/seclusion/emergency medication: N/A Justification of Continued Inpatient Treatment: Pt. continues to require a safe and supportive environment and medication adjustments. He remains on isolation for Covid precautions.
[2021-08-07 19:00] VITALS: BP 121/91
--- NOTE | 2021-08-08 05:09 | NUR ---
Nursing Progress Note: Legal hold:LPS Client on involuntary status for GD. Report received from nurse with use of SBAR: KEIRA Platt Why are they here: Patient admitted to [facility] on 5150 GD. 5150 states Genoveva (payee) was concerned he could not utilize his funds and they were concerned he could not obtain food and clothing due to his mental illness. He has a wound to his right finger and states delusions regarding a nuclear submarine. Public guardian will serve 5 day notice for temporary conservatorship. He does have a history of LPS conservatorship. Assessment What has happened this shift: Pt is still in isolation due to COVID. Pts WBC has come up slightly since 08/06/21. New orders for Ativan TID explained to pt and HS dose given with other medications. Pt verbalizes understanding. Pt stands in the doorway with a blank look on his face. He answers questions appropriately, but does not have a lot to say spontaneously. He does ask for hot chocolate which is given to him. PT says he is feeling okay just has a headache on and off but does not have any worsening symptoms of covid. S/I, H/I: Denies A/VH: Denies, pt. does not appear internally preoccupied Sleep: see sleep hours ADL's: Pt. requires some direction and encouragement Group attendance: N/A Were meds taken: Yes Any med S/E: Decreased WBC count Mental Status Exam Appearance: Somewhat disheveled r/t laying in bed, pt. continues to be on isolation Eye contact: Fair Behavior: Cooperative Speech: WNL Mood: bored Affect: Constricted Thought process: Disorganized Thought Content: bored in his room Cognition: A&O X2 (name and place) Insight: Poor Judgment: Poor Interventions PRN's used: none Therapeutic interventions: Maintained a safe and supportive environment, ensured contract for safety, provided clear and simple instructions, attempted to orient to reality, monitored for s/s of infection and provided needed interventions, maintained isolation for Covid precautions, and maintained Q 15 min safety checks. Restraints/seclusion/emergency medication: N/A Justification of Continued Inpatient Treatment: Pt. continues to require a safe and supportive environments and medication adjustments. He remains on isolation for Covid precautions.
[2021-08-08 08:14] LABS: BASOPHILS % (AUTO) 0.3 % (0-1); EOSINOPHILS # (AUTO) 0.1 X10'3 (0-0.9); EOSINOPHILS % (AUTO) 3.8 % (0-6); HEMATOCRIT 41.3 % (42.0-52.0); HEMOGLOBIN 13.8 g/dl (14.0-17.9); LYMPHOCYTES # (AUTO) 0.8 X10'3 (1.1-4.8); MEAN CORPUSCULAR HEMOGLOBIN 29.6 PG (27.0-31.0); MEAN CORPUSCULAR HGB CONC 33.4 g/dL (33.0-36.5); MEAN CORPUSCULAR VOLUME 88.4 FL (78-98); MONOCYTES # (AUTO) 0.4 X10'3 (0-0.9); MONOCYTES % (AUTO) 14.7 % (2-12); NEUTROPHILS # (AUTO) 1.5 X10'3 (1.8-7.7); NEUTROPHILS % (AUTO) 53.2 % (42-75); PLATELET COUNT 181 X10'3 (140-440); RED BLOOD COUNT 4.66 X10'6 (4.70-6.10); RED CELL DISTRIBUTION WIDTH 13.8 % (11.5-14.5); WHITE BLOOD COUNT 2.9 X10'3 (4.5-11.0)
[2021-08-08 08:32] VITALS: BP 103/71
[2021-08-08] MEDS: pantoprazole 40mg Tablet.DR PO SCH (08:49)
[2021-08-08] MEDS: LORazepam 1 MG tablet PO SCH ×3 (08:49→20:48)
[2021-08-08] MEDS: amantadine 100 MG capsule PO SCH ×2 (08:50→20:47)
[2021-08-08] MEDS: docusate sod 100mg capsule PO SCH ×2 (08:50→20:46)
[2021-08-08] MEDS: ibuprofen tablet 400 MG TABLET PO SCH ×3 (08:50→20:45)
[2021-08-08] MEDS: POTASSIUM BICARBONATE/CIT AC 10 MEQ TABLET.EFF PO SCH (08:50)
[2021-08-08] MEDS: lactobacillus rhamnosus 10,000 MMU CELLS/CAPSULE PO SCH ×2 (08:50→20:45)
[2021-08-08 09:05] LABS: D-DIMER < 0.19 MG/L FEU (0-0.50)
[2021-08-08 10:57] LABS: TOTAL CELLS COUNTED 100
[2021-08-08 10:59] LABS: PLATELET ESTIMATE NORMAL
[2021-08-08] MEDS: acetaminophen 325mg tablet PO PRN (13:24)
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
[2021-08-08 18:49] VITALS: BP 121/89
[2021-08-08 20:00] VITALS: BP 121/89
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
[2021-08-09 08:11] VITALS: BP 124/74
[2021-08-09 08:13] VITALS: BP 93/67
[2021-08-09 08:20] LABS: BASOPHILS % (AUTO) 0.2 % (0-1); EOSINOPHILS # (AUTO) 0.1 X10'3 (0-0.9); EOSINOPHILS % (AUTO) 2.4 % (0-6); HEMATOCRIT 42.6 % (42.0-52.0); HEMOGLOBIN 14.5 g/dl (14.0-17.9); LYMPHOCYTES # (AUTO) 1.5 X10'3 (1.1-4.8); LYMPHOCYTES % (AUTO) 41.4 % (21-51); MEAN CORPUSCULAR HGB CONC 34.1 g/dL (33.0-36.5); MEAN CORPUSCULAR VOLUME 87.8 FL (78-98); MEAN PLATELET VOLUME 7.9 FL (7.4-10.4); MONOCYTES # (AUTO) 0.6 X10'3 (0-0.9); MONOCYTES % (AUTO) 15.1 % (2-12); NEUTROPHILS # (AUTO) 1.5 X10'3 (1.8-7.7); NEUTROPHILS % (AUTO) 40.9 % (42-75); PLATELET COUNT 209 X10'3 (140-440); RED BLOOD COUNT 4.85 X10'6 (4.70-6.10); RED CELL DISTRIBUTION WIDTH 13.8 % (11.5-14.5); WHITE BLOOD COUNT 3.7 X10'3 (4.5-11.0)
[2021-08-09] MEDS: lactobacillus rhamnosus 10,000 MMU CELLS/CAPSULE PO SCH ×2 (08:37→19:50)
[2021-08-09] MEDS: LORazepam 1 MG tablet PO SCH ×3 (08:37→19:49)
[2021-08-09] MEDS: docusate sod 100mg capsule PO SCH ×2 (08:37→19:49)
[2021-08-09] MEDS: amantadine 100 MG capsule PO SCH ×2 (08:37→19:49)
[2021-08-09] MEDS: pantoprazole 40mg Tablet.DR PO SCH (08:37)
[2021-08-09] MEDS: ibuprofen tablet 400 MG TABLET PO SCH ×3 (08:38→19:50)
[2021-08-09] MEDS: POTASSIUM BICARBONATE/CIT AC 10 MEQ TABLET.EFF PO SCH (08:38)
[2021-08-09 16:21] LABS: D-DIMER < 0.19 MG/L FEU (0-0.50)
--- NOTE | 2021-08-09 17:37 | NUR ---
Nursing Progress Note: Legal hold: LPS Client on involuntary status for GD. Report received from KEIRA Sal with use of SBAR. Why are they here: Patient admitted to [facility] on 5150 GD. 5150 states Genoveva (payee) was concerned he could not utilize his funds and they were concerned he could not obtain food and clothing due to his mental illness. He has a wound to his right finger and states delusions regarding a nuclear submarine. Public guardian will serve 5 day notice for temporary conservatorship. He does have a history of LPS conservatorship. Assessment What has happened this shift: Pt sleeping at the start of the shift. CBC drawn, WBC' 3.7 today. Improvement from yesterday. Pt cooperative with consumer safety inspector however he did tell her he needed a beer. Pt out of isolation today. He spent the day sitting in front of the TV. He is calm and cooperative with treatment. S/I, H/I: Denies A/VH: Responds to A/H; denies V/H Sleep: N/A ADL's: Pt. requires some direction and encouragement Group attendance: N/A Were meds taken: Yes Any med S/E: Decreased WBC count, daily CBCs. Mental Status Exam Appearance: Pt changed clothes; wearing unit green scrubs Eye contact: Fair Behavior: Cooperative, guarded, and withdrawn Speech: Soft, responds to direct questions only with a minimal response Mood: Guarded Affect: Constricted Thought process: Disorganized Thought Content: Meeting basic needs. Cognition: A&O X2 (name and place) Insight: Poor Judgment: Poor Interventions PRN's used: None Therapeutic interventions: Provided 1:1 assessment with therapeutic communication and active listening, orient to reality as needed, monitored for s/s of infection and provided needed interventions, and maintained Q 15 min safety checks. Restraints/seclusion/emergency medication: N/A Justification of Continued Inpatient Treatment: Patient is LPS conserved and has been accepted at [facility]. Pt continues to be on Covid restriction and requires a safe and therapeutic milieu.
[2021-08-09 19:12] VITALS: BP 120/87
--- NOTE | 2021-08-09 22:45 | NUR ---
Nursing Progress Note: Legal hold: LPS pending placement in an IMD Report received from Anshul Castellon physician practice manager Why are they here: Patient admitted to [facility] on 5150 GD. 5150 states Genoveva (payee) was concerned he could not utilize his funds and they were concerned he could not obtain food and clothing due to his mental illness. He has a wound to his right finger and states delusions regarding a nuclear submarine. Public guardian will serve 5 day notice for temporary conservatorship. He does have a history of LPS conservatorship. Shift assessment: The patient spent the evening watching TV. He was friendly when approached for the evening assessment. Patient commented, "I can't stop chewing my tongue because of my teeth" His teeth on the lower are broken. He was asked about medication side effects he stated, "my glands" When asked to elaborate he replied, "They're a little noisy when I swallow" He described his mood as good. He denied anxiety or hearing voices. He denied paranoia or visual hallucinations. He denied thoughts to harm himself or others. His replies to basic questions like if he wanted a snack did not correlate to what was asked and it did not make sense. At some point to took the toenail off of the great toe of his left foot and when asked what had happened he replied something about sugar again not making any sense. He denies having a mental illness. He appeared clean and well groomed. He was appropriately dressed. His insight and judgement are very poor. He is medication compliant.
[2021-08-10 08:00] VITALS: BP 109/82
[2021-08-10 08:32] LABS: BASOPHILS % (AUTO) 0.2 % (0-1); EOSINOPHILS # (AUTO) 0.1 X10'3 (0-0.9); EOSINOPHILS % (AUTO) 2.6 % (0-6); HEMATOCRIT 41.1 % (42.0-52.0); HEMOGLOBIN 13.8 g/dl (14.0-17.9); LYMPHOCYTES # (AUTO) 1.4 X10'3 (1.1-4.8); LYMPHOCYTES % (AUTO) 37.6 % (21-51); MEAN CORPUSCULAR HEMOGLOBIN 29.6 PG (27.0-31.0); MEAN CORPUSCULAR HGB CONC 33.5 g/dL (33.0-36.5); MEAN CORPUSCULAR VOLUME 88.5 FL (78-98); MEAN PLATELET VOLUME 8.4 FL (7.4-10.4); MONOCYTES # (AUTO) 0.4 X10'3 (0-0.9); NEUTROPHILS # (AUTO) 1.8 X10'3 (1.8-7.7); NEUTROPHILS % (AUTO) 47.6 % (42-75); PLATELET COUNT 223 X10'3 (140-440); RED BLOOD COUNT 4.64 X10'6 (4.70-6.10); RED CELL DISTRIBUTION WIDTH 13.8 % (11.5-14.5); WHITE BLOOD COUNT 3.7 X10'3 (4.5-11.0)
[2021-08-10] MEDS: amantadine 100 MG capsule PO SCH ×2 (08:38→20:09)
[2021-08-10] MEDS: docusate sod 100mg capsule PO SCH ×3 (08:38→20:09)
[2021-08-10] MEDS: LORazepam 1 MG tablet PO SCH ×3 (08:38→21:00)
[2021-08-10] MEDS: pantoprazole 40mg Tablet.DR PO SCH (08:39)
[2021-08-10] MEDS: ibuprofen tablet 400 MG TABLET PO SCH ×3 (08:39→20:30)
[2021-08-10] MEDS: lactobacillus rhamnosus 10,000 MMU CELLS/CAPSULE PO SCH ×2 (08:39→20:09)
[2021-08-10] MEDS: POTASSIUM BICARBONATE/CIT AC 10 MEQ TABLET.EFF PO SCH (08:41)
[2021-08-10 09:00] LABS: ALBUMIN 3.6 G/DL (3.4-5.0); ANION GAP 9 (8-16); BLOOD UREA NITROGEN 12 MG/DL (7-18); BUN/CREATININE RATIO 17.1 (5.4-32.0); CALCIUM 8.6 MG/DL (8.5-10.1); CHLORIDE 103 MMOL/L (99-107); GLUCOSE 93 MG/DL (70-104); POTASSIUM 4.3 MMOL/L (3.5-5.1); SODIUM 139 MMOL/L (135-145); TOTAL CARBON DIOXIDE 26.7 MMOL/L (24-32); eGFR > 90 ML/MIN
--- NOTE | 2021-08-10 12:44 | NUR ---
Reassessment: Pt dx COVID-19 08/03 per EMR. Pt currently on regular diet w/ ~100% intake of meals w/ double eggs WB. LBM 08/09, receiving routine colace. No further nutrition intervention at this time. Will continue to monitor. Recommendations: 1. Continue regular diet as tolerated; double eggs WB 2. Bowel care per Rx 3. Weekly wt Addendum: 08/10/21 at [address] Amended: Links added.
--- NOTE | 2021-08-10 14:25 | NUR ---
Nursing Progress Note: Legal hold:LPS Client on involuntary status for GD. Report received from nurse with use of SBAR: Courtney Cleary RN Why are they here: Patient admitted to [facility] on 5150 GD. 5150 states Genoveva (payee) was concerned he could not utilize his funds and they were concerned he could not obtain food and clothing due to his mental illness. He has a wound to his right finger and states delusions regarding a nuclear submarine. Public guardian will serve 5 day notice for temporary conservatorship. He does have a history of LPS conservatorship. Assessment What has happened this shift: Received pt. sleeping in bed at the beginning of the shift, he was awoken for breakfast and afterwards returned back to bed for a short time. Pt. again awoke and proceeded to go and watch TV in the Group Room where he greeted this editorial writer appropriately. Pt. presents as guarded and withdrawn, and denies all MH s/s when questioned. He appears to be minimizing any s/s, but does not perseverate on his desire to discharge as he had perviously. Pt. must be reminded to wear a mask when out of his room, and he complies. He denies any adverse physical s/s aside from an ongoing intermittent strong cough, and V/S remain WNL. Later at approximately 1100, pt. comes to the nurse's station making paranoid delusional statements that he believes a spider's leg is growing out of his heel. He was able to be redirected and reoriented to reality, however shortly afterwards was seen running very fast down the hallway to his room. When questioned by staff, pt. reported that he had, had diarrhea. He stated in a delusional manner, "It's because I swallowed poison, now the battery acid is coming out." PRN Imodium was administered with effectiveness, will continue to monitor. S/I, H/I: Denies A/VH: Denies, pt. does not appear internally preoccupied Sleep: Sleep hours are 6.75 ADL's: Pt. requires direction and encouragement Group attendance: N/A Were meds taken: Yes Any med S/E: None Mental Status Exam Appearance: Somewhat disheveled, however appropriately dressed Eye contact: Fair Behavior: Cooperative, guarded, and withdrawn Speech: Soft, responds to direct questions only with a minimal response Mood: Guarded Affect: Constricted Thought process: Disorganized Thought Content: Paranoid delusions Cognition: A&O X2 (name and place) Insight: Poor Judgment: Poor Interventions PRN's used: None Therapeutic interventions: Maintained a safe and supportive environment, ensured contract for safety, provided clear and simple instructions, attempted to orient to reality, monitored for any s/s of infection, encouraged participation on the unit and independent completion of ADLs, and maintained Q 15 min safety checks. Restraints/seclusion/emergency medication: N/A Justification of Continued Inpatient Treatment: Pt. continues to require a safe and supportive environment and medication adjustments.
[2021-08-10 16:49] LABS: D-DIMER < 0.19 MG/L FEU (0-0.50)
[2021-08-10 19:00] VITALS: BP 124/95
[2021-08-11] MEDS: ibuprofen tablet 400 MG TABLET PO SCH ×3 (02:06→20:11)
[2021-08-11] MEDS: LORazepam 1 MG tablet PO SCH ×4 (02:07→20:11)
--- NOTE | 2021-08-11 02:35 | NUR ---
RN PROGRESS NOTE: LEGAL HOLD: LPS for GD REASON FOR ADMIT: Patient admitted to [facility] on 5150 GD. 5150 states Genoveva (payee) was concerned he could not utilize his funds and they were concerned he could not obtain food and clothing due to his mental illness. He has a wound to his right finger and states delusions regarding a nuclear submarine. Public guardian will serve 5 day notice for temporary conservatorship. He does have a history of LPS conservatorship. THIS SHIFT: Client isolated in his room, in bed. Client refused the Colace stating, "I don't need that because I have a light in my body that takes care of that." Client c/o of tongue pain. Clients tongue has a darkened area in the back. He has significant dental caries. Client was encouraged to brush his teeth and include his gums. At 02:00 client was given 800 mg Ibuprofen Tab PO and (evening) 1 mg Ativan Tab PO. Client is cooperative and pleasant. Client studies meds before taking them. Client stated, "I need my Clozapine. It's a yellow pill and you can get it from [facility]." DISCHARGE: TBD
[2021-08-11 07:00] VITALS: BP 117/81
[2021-08-11] MEDS: POTASSIUM BICARBONATE/CIT AC 10 MEQ TABLET.EFF PO SCH (07:48)
[2021-08-11] MEDS: lactobacillus rhamnosus 10,000 MMU CELLS/CAPSULE PO SCH ×2 (07:49→20:11)
[2021-08-11] MEDS: amantadine 100 MG capsule PO SCH ×2 (07:49→20:11)
[2021-08-11] MEDS: docusate sod 100mg capsule PO SCH ×2 (07:49→20:11)
[2021-08-11] MEDS: pantoprazole 40mg Tablet.DR PO SCH (07:49)
[2021-08-11] MEDS: ibuprofen tablet 400 MG TABLET PO PRN (07:51)
[2021-08-11 09:20] LABS: BASOPHILS % (AUTO) 0.3 % (0-1); EOSINOPHILS # (AUTO) 0.1 X10'3 (0-0.9); HEMATOCRIT 40.8 % (42.0-52.0); HEMOGLOBIN 13.9 g/dl (14.0-17.9); LYMPHOCYTES # (AUTO) 1.5 X10'3 (1.1-4.8); LYMPHOCYTES % (AUTO) 39.9 % (21-51); MEAN CORPUSCULAR HEMOGLOBIN 29.8 PG (27.0-31.0); MEAN CORPUSCULAR HGB CONC 34.2 g/dL (33.0-36.5); MEAN CORPUSCULAR VOLUME 87.2 FL (78-98); MEAN PLATELET VOLUME 7.6 FL (7.4-10.4); MONOCYTES # (AUTO) 0.5 X10'3 (0-0.9); MONOCYTES % (AUTO) 12.2 % (2-12); NEUTROPHILS # (AUTO) 1.7 X10'3 (1.8-7.7); NEUTROPHILS % (AUTO) 45.6 % (42-75); PLATELET COUNT 246 X10'3 (140-440); RED BLOOD COUNT 4.68 X10'6 (4.70-6.10); RED CELL DISTRIBUTION WIDTH 13.7 % (11.5-14.5); WHITE BLOOD COUNT 3.7 X10'3 (4.5-11.0)
[2021-08-11 09:28] VITALS: BP 117/81
--- NOTE | 2021-08-11 17:51 | NUR ---
Nursing Progress Note: Legal hold: LPS Client on involuntary status for GD. Report received from nurse with use of SBAR: Ravinder RN Why are they here: Patient admitted to [facility] on 5150 GD. 5150 states Genoveva (payee) was concerned he could not utilize his funds and they were concerned he could not obtain food and clothing due to his mental illness. He has a wound to his right finger and states delusions regarding a nuclear submarine. Public guardian will serve 5 day notice for temporary conservatorship. He does have a history of LPS conservatorship. Assessment What has happened this shift: Received patient lying in bed awake at shift change. Patient has been complaining of his lips hurting, which appear somewhat dry, bacitracin ointment applied. Patient denies A/H today. Patient isolates to his room except for meals and snack time. S/I, H/I: Denies A/VH: Denies, pt. does not appear internally preoccupied Sleep: 7.0 hours. ADL's: Pt. requires direction and encouragement Group attendance: N/A Were meds taken: Yes Any med S/E: None Mental Status Exam Appearance: Male with short brown hair and a teardrop under eye, wearing unit attire. Eye contact: Fair Behavior: Cooperative, guarded, and withdrawn Speech: Soft, responds to direct questions only with a minimal response Mood: Guarded Affect: Constricted Thought process: Disorganized Thought Content: Paranoid delusions Cognition: A&O X2 (name and place) Insight: Poor Judgment: Poor Interventions PRN's used: None Therapeutic interventions: Maintained a safe and supportive environment, ensured contract for safety, provided clear and simple instructions, attempted to orient to reality, monitored for any s/s of infection, encouraged participation on the unit and independent completion of ADLs, and maintained Q 15 min safety checks. Restraints/seclusion/emergency medication: N/A Justification of Continued Inpatient Treatment: Pt. continues to require a safe and supportive environment and medication adjustments.
[2021-08-11 20:23] VITALS: BP 118/81
--- NOTE | 2021-08-12 04:35 | NUR ---
Nursing Progress Note: Legal hold: LPS Client on involuntary status for GD. Report received from Ravinder RN with use of SBAR: Why are they here: Patient admitted to [facility] on 5150 GD. 5150 states Genoveva (payee) was concerned he could not utilize his funds and they were concerned he could not obtain food and clothing due to his mental illness. He has a wound to his right finger and states delusions regarding a nuclear submarine. Public guardian will serve 5 day notice for temporary conservatorship. He does have a history of LPS conservatorship. Assessment What has happened this shift: The patient was seen walking to his room after dinner. He stopped and asked how I was doing. Patient continues to be guarded and withdrawn, denies all MH symptoms. Patient is cooperative with staff and medications. He is not on isolation any longer, but continues to spend most of his time isolated to his room. No delusional content was voiced this shift. S/I, H/I: Denies A/VH: Denies Sleep: See sleep assessment ADL's: Pt. requires some direction and encouragement Group attendance: N/A Were meds taken: Yes Any med S/E: None reported, but WBCs are down. Mental Status Exam Appearance: Somewhat disheveled r/t laying in bed, pt. continues to isolate to his room. Eye contact: Fair Behavior: Cooperative Speech: WNL Mood: bored Affect: Constricted Thought process: Disorganized Thought Content: bored in his room Cognition: A&O X2 (name and place) Insight: Poor Judgment: Poor Interventions PRN's used: none Therapeutic interventions: Maintained a safe and supportive environment, ensured contract for safety, provided clear and simple instructions, attempted to orient to reality, monitored for s/s of infection and provided needed interventions, maintained isolation for Covid precautions, and maintained Q 15 min safety checks. Restraints/seclusion/emergency medication: N/A Justification of Continued Inpatient Treatment: Pt. continues to require a safe and supportive environments and medication adjustments. He remains on isolation for Covid precautions.
[2021-08-12 08:00] VITALS: BP 119/73
[2021-08-12] MEDS: amantadine 100 MG capsule PO SCH ×2 (08:08→20:06)
[2021-08-12] MEDS: pantoprazole 40mg Tablet.DR PO SCH (08:08)
[2021-08-12] MEDS: ibuprofen tablet 400 MG TABLET PO SCH ×3 (08:08→20:06)
[2021-08-12] MEDS: lactobacillus rhamnosus 10,000 MMU CELLS/CAPSULE PO SCH ×2 (08:08→20:06)
[2021-08-12] MEDS: LORazepam 1 MG tablet PO SCH ×3 (08:08→20:06)
[2021-08-12] MEDS: docusate sod 100mg capsule PO SCH ×2 (08:08→20:05)
[2021-08-12] MEDS: POTASSIUM BICARBONATE/CIT AC 10 MEQ TABLET.EFF PO SCH (08:09)
--- NOTE | 2021-08-12 11:09 | NUR ---
Pt. attended group today. Today, being we did an creative mural with different Spears theme coloring pages and also utilized magazine cut outs to add to the mural. Pt. engaged in part of the group. He chose not to do the craft but he did pick out pictures and shared why he liked them to the group. His thought content did contain delusional thoughts and he would tangent into loose associations once he started talking. His demeanor was pleasant and calm. He listened appropriately to his peers and this Accounting Assistant. He stayed for the entirety of the group and seemed to enjoy socializing. Theresa St LCSW Addendum: 08/12/21 at [address] This group should be dated 08/11/2021.
[2021-08-12 12:34] LABS: BASOPHILS % (AUTO) 0.2 % (0-1); EOSINOPHILS # (AUTO) 0.1 X10'3 (0-0.9); EOSINOPHILS % (AUTO) 2.2 % (0-6); HEMATOCRIT 41.4 % (42.0-52.0); HEMOGLOBIN 14.2 g/dl (14.0-17.9); LYMPHOCYTES # (AUTO) 1.8 X10'3 (1.1-4.8); LYMPHOCYTES % (AUTO) 36.4 % (21-51); MEAN CORPUSCULAR HGB CONC 34.2 g/dL (33.0-36.5); MEAN CORPUSCULAR VOLUME 87.7 FL (78-98); MEAN PLATELET VOLUME 7.5 FL (7.4-10.4); MONOCYTES # (AUTO) 0.7 X10'3 (0-0.9); MONOCYTES % (AUTO) 13.7 % (2-12); NEUTROPHILS # (AUTO) 2.3 X10'3 (1.8-7.7); NEUTROPHILS % (AUTO) 47.5 % (42-75); PLATELET COUNT 296 X10'3 (140-440); RED BLOOD COUNT 4.72 X10'6 (4.70-6.10); RED CELL DISTRIBUTION WIDTH 13.6 % (11.5-14.5); WHITE BLOOD COUNT 4.9 X10'3 (4.5-11.0)
--- NOTE | 2021-08-12 14:58 | NUR ---
Nursing Progress Note Legal hold: LPS Conserved Client on involuntary status for GD Report received from RN with use of SBAR Why are they here: Patient admitted to [facility] on 5150 GD. 5150 states Genoveva (payee) was concerned he could not utilize his funds and they were concerned he could not obtain food and clothing due to his mental illness. He has a wound to his right finger and states delusions regarding a nuclear submarine. Public guardian will serve 5 day notice for temporary conservatorship. He does have a history of LPS conservatorship. Assessment What has happened this shift: Received Pt in bed sleeping w/o distress at the beginning of the shift. Pt woke and cooperative with vitals. Kenneth angry about meds keeping me awake, which does not match the amount of hours slept last night. Pt ate meals in community room with others and socialized with staff throughout the day. Pt making psychotic and delusional statements; there is a spring under the [place] that they use the water to make [employer] sylwia. S/I, H/I: Denies A/VH: Denies Sleep: None this shift ADL's: Needs encouragement Group attendance: No Were meds taken: Yes Any med S/E: None Mental Status Exam Appearance: Disheveled in green scrubs Eye contact: Fair Behavior: Cooperative, paranoid Speech: Delusional Mood: Guarded Affect: Constricted Thought process: Disorganized Thought Content: Paranoid delusions Cognition: A&O X2 (name and place) Insight: Poor Judgment: Poor Interventions PRN's used: None Therapeutic interventions: Maintained a safe and supportive environment, ensured contract for safety, provided clear and simple instructions, attempted to orient to reality, monitored for any s/s of infection, encouraged participation on the unit and independent completion of ADLs, and maintained Q 15 min safety checks. Restraints/seclusion/emergency medication: N/A Justification of Continued Inpatient Treatment: Pt. continues to require a safe and supportive environment and medication adjustments.
--- NOTE | 2021-08-12 17:49 | NUR ---
Group Art Tx. Continued: Patient remained in the group room for the entire session. At times, he was sitting at the table with his head hanging low, just sitting and perhaps listening to the video/relaxation music. Patient chose not to draw or complete the activity. At one point, patient seemed to enjoy having a conversation with another patient, both who presented as incoherent (to this therapist) in their communications, however were laughing and joking together. *Please refer to [facility] for a complete overview of todays session. Cari Romero MA, [employer] #[id number] Art Therapist Addendum: 08/12/21 at 1751 by Cari Romero SS Amended: Links added.
[2021-08-12 20:00] VITALS: BP 124/83
[2021-08-12] MEDS ORDERED: quetiapine 100mg tablet PO SCH (21:00)
--- NOTE | 2021-08-13 04:08 | NUR ---
Nursing Progress Note: Legal hold: LPS Client on involuntary status for GD. Report received from KEIRA Smith with use of SBAR: Why are they here: Patient admitted to [facility] on 5150 GD. 5150 states Genoveva (payee) was concerned he could not utilize his funds and they were concerned he could not obtain food and clothing due to his mental illness. He has a wound to his right finger and states delusions regarding a nuclear submarine. Public guardian will serve 5 day notice for temporary conservatorship. He does have a history of LPS conservatorship. Assessment What has happened this shift: Patient seen in the community room for 1:1. He was in a good mood, but delusional. 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 He was started on Seroquel tonight. he has been observed on his bed all night. S/I, H/I: Denies A/VH: Denies Sleep: See sleep assessment ADL's: Pt. requires some direction and encouragement Group attendance: N/A Were meds taken: Yes Any med S/E: None reported, but WBCs are down. Mental Status Exam Appearance: Somewhat disheveled r/t laying in bed, pt. continues to isolate to his room. Eye contact: Fair Behavior: Cooperative Speech: WNL Mood: bored Affect: Constricted Thought process: Disorganized Thought Content: bored in his room Cognition: A&O X2 (name and place) Insight: Poor Judgment: Poor Interventions PRN's used: none Therapeutic interventions: Maintained a safe and supportive environment, ensured contract for safety, provided clear and simple instructions, attempted to orient to reality, monitored for s/s of infection and provided needed interventions, maintained isolation for Covid precautions, and maintained Q 15 min safety checks. Restraints/seclusion/emergency medication: N/A Justification of Continued Inpatient Treatment: Pt. continues to require a safe and supportive environments and medication adjustments. He remains on isolation for Covid precautions.
[2021-08-13] MEDS: ibuprofen tablet 400 MG TABLET PO SCH ×3 (07:40→20:14)
[2021-08-13] MEDS: pantoprazole 40mg Tablet.DR PO SCH (07:40)
[2021-08-13] MEDS: amantadine 100 MG capsule PO SCH ×2 (07:40→20:14)
[2021-08-13] MEDS: POTASSIUM BICARBONATE/CIT AC 10 MEQ TABLET.EFF PO SCH (07:41)
[2021-08-13] MEDS: docusate sod 100mg capsule PO SCH ×2 (07:41→20:14)
[2021-08-13] MEDS: LORazepam 1 MG tablet PO SCH ×3 (07:41→20:14)
[2021-08-13] MEDS: lactobacillus rhamnosus 10,000 MMU CELLS/CAPSULE PO SCH ×2 (07:41→20:14)
[2021-08-13 08:00] VITALS: BP 118/79
[2021-08-13] MEDS ORDERED: LOXAPINE SUCCINATE 25 MG CAPSULE PO ONE (14:40)
--- NOTE | 2021-08-13 17:23 | NUR ---
Nursing Progress Note: Kenneth Hernadez Legal hold: LPS Conserved Client on involuntary status for GD Report received from KEIRA Ridley with use of SBAR Why are they here: Patient admitted to [facility] on 5150 GD. 5150 states Genoveva (payee) was concerned he could not utilize his funds and they were concerned he could not obtain food and clothing due to his mental illness. He has a wound to his right finger and states delusions regarding a nuclear submarine. Public guardian will serve 5 day notice for temporary conservatorship. He does have a history of LPS conservatorship. Assessment What has happened this shift: Received pt. awake in the fraga pacing, received his medication without issue, 1:1 assessment completed in fraga per pt. choice. Pt. denies SI, HI, AH, endorses VH stating I see my daughter she is 3 ft tall Pt. reports he was admitted d/t I needed to stay away He presents very disorganized with thoughts and speech, and is suspicious. Pt. ate his meals in the main dining room with cohorts, he can be found eating at tables with others and engages socially. Pt. has presented as delusional approaching casualty underwriter asking wheres the sylwia at in this libertarian. Pt. later approached staff in a sexually inappropriate manor asking can you help me with my sperm count, like touch my sack as he gestured to his groin area. Pt. was encouraged to maintain boundaries. Pt. took all meds this shift. S/I, H/I: Denies A/VH: Denies AH, endorses VH Sleep: None ADL's: Needs prompting Group attendance: Yes Were meds taken: Yes Any med S/E: None Mental Status Exam Appearance: Disheveled male, broken and decayed teeth in green scrubs Eye contact: Fair Behavior: Cooperative, paranoid Speech: Delusional Mood: Guarded Affect: Constricted Thought process: Disorganized Thought Content: Paranoid delusions Cognition: A&O X2 (name and place) Insight: Poor Judgment: Poor Interventions PRN's used: None Therapeutic interventions: Maintained a safe and supportive environment, ensured contract for safety, provided clear and simple instructions, attempted to orient to reality, monitored for any s/s of infection, encouraged participation on the unit and independent completion of ADLs, and maintained Q 15 min safety checks. Restraints/seclusion/emergency medication: N/A Justification of Continued Inpatient Treatment: Pt. continues to require a safe and supportive environment and medication adjustments.
[2021-08-13] MEDS ORDERED: traZODone 50mg tablet PO ONE (19:23)
[2021-08-13] MEDS ORDERED: traZODone 50mg tablet PO PRN (19:25)
[2021-08-13 20:00] VITALS: BP 113/80
[2021-08-13] MEDS: LOXAPINE SUCCINATE 25 MG CAPSULE PO SCH (20:14)
--- NOTE | 2021-08-13 23:55 | NUR ---
Nursing Progress Note: Kenneth Hernadez Legal hold: LPS Conserved Client on involuntary status for GD Report received from KEIRA alfonso with use of SBAR Why are they here: Patient admitted to [facility] on 5150 GD. 5150 states Genoveva (payee) was concerned he could not utilize his funds and they were concerned he could not obtain food and clothing due to his mental illness. He has a wound to his right finger and states delusions regarding a nuclear submarine. Public guardian will serve 5 day notice for temporary conservatorship. He does have a history of LPS conservatorship. Assessment What has happened this shift: Received pt. lying in bed resting, 1:1 assessment done. Pt stated he was trying to stretch his legs out and thats why he hadnt gotten up yet. Pt denies MH symptoms and stated he is cured. At medication administration time this RN let the patient know his Seroquel has been discontinued and the Dr started him on trazadone to help him sleep. The pt made no other conversation with this RN and went back to sleep for the night. S/I, H/I: Denies A/VH: Denies AH, endorses VH Sleep: None ADL's: Needs prompting Group attendance: Yes Were meds taken: Yes Any med S/E: None Mental Status Exam Appearance: Disheveled male, broken and decayed teeth in green scrubs Eye contact: Fair Behavior: Cooperative, paranoid Speech: Delusional Mood: Guarded Affect: Constricted Thought process: Disorganized Thought Content: Paranoid delusions Cognition: A&O X2 (name and place) Insight: Poor Judgment: Poor Interventions PRN's used: None Therapeutic interventions: Maintained a safe and supportive environment, ensured contract for safety, provided clear and simple instructions, attempted to orient to reality, monitored for any s/s of infection, encouraged participation on the unit and independent completion of ADLs, and maintained Q 15 min safety checks. Restraints/seclusion/emergency medication: N/A Justification of Continued Inpatient Treatment: Pt. continues to require a safe and supportive environment and medication adjustments.
[2021-08-14 07:27] VITALS: BP 101/73
[2021-08-14] MEDS: lactobacillus rhamnosus 10,000 MMU CELLS/CAPSULE PO SCH ×2 (08:26→22:13)
[2021-08-14] MEDS: ibuprofen tablet 400 MG TABLET PO SCH ×3 (08:26→22:14)
[2021-08-14] MEDS: LORazepam 1 MG tablet PO SCH ×3 (08:26→22:14)
[2021-08-14] MEDS: amantadine 100 MG capsule PO SCH ×2 (08:26→22:13)
[2021-08-14] MEDS: pantoprazole 40mg Tablet.DR PO SCH (08:26)
[2021-08-14] MEDS: docusate sod 100mg capsule PO SCH ×2 (08:26→22:13)
[2021-08-14] MEDS: POTASSIUM BICARBONATE/CIT AC 10 MEQ TABLET.EFF PO SCH (08:26)
[2021-08-14] MEDS: LOXAPINE SUCCINATE 25 MG CAPSULE PO SCH ×2 (08:26→22:13)
--- NOTE | 2021-08-14 14:50 | NUR ---
PLACEMENT UPDATE Client is accepted at [facility]. Admit date pending bed availability at [facility]. Clients packet is also still being reviewed at [place]. BHAVANA Castanon
--- NOTE | 2021-08-14 14:54 | NUR ---
Nursing Progress Note: Legal hold:LPS Client on involuntary status for GD. Report received from nurse with use of SBAR: KEIRA Ridley Why are they here: Patient admitted to [facility] on 5150 GD. 5150 states Genoveva (payee) was concerned he could not utilize his funds and they were concerned he could not obtain food and clothing due to his mental illness. He has a wound to his right finger and states delusions regarding a nuclear submarine. Public guardian will serve 5 day notice for temporary conservatorship. He does have a history of LPS conservatorship. Assessment What has happened this shift: Received pt. sleeping in bed at the beginning of the shift, he was awoken for breakfast and afterwards returned back to bed as is his routine. 1:1 was completed at bedside, pt. greets this freelance copywriter animatedly. However, he then proceeds to spit on the floor of his room, and requires redirection and clear boundaries. Pt. continues to deny all MH s/s and appears to be minimizing, however as the conversation progresses his thought process appears to become increasingly disorganized and with delusional statements. Pt. reports he wants to leave and return to the Hotel, he then states in a disorganized manner, "I need to get food. I know Valentina. She took care of me in [place] after I drank the poison." Pt. continued to isolate in his room throughout much of the day, but does attend meals in the Group Room. In the afternoon, pt. was observed to be belching loudly while sitting at a table. When redirected by staff and questioned whether his nurse could get him something to help his stomach, pt. stated in a delusional manner, "Yeah, they've been supplying her with beer." S/I, H/I: Denies A/VH: Denies, pt. does not appear internally preoccupied Sleep: Sleep hours are 7.5, and pt. naps intermittently during the shift ADL's: Pt. requires direction and encouragement Group attendance: No Were meds taken: Yes Any med S/E: None Mental Status Exam Appearance: Somewhat disheveled, however appropriately dressed Eye contact: Fair Behavior: Cooperative, guarded, and withdrawn Speech: Soft, responds to direct questions Mood: Guarded Affect: Blunted with animation Thought process: Disorganized Thought Content: Paranoid delusions Cognition: A&O X2 (name and place) Insight: Poor Judgment: Poor Interventions PRN's used: None Therapeutic interventions: Maintained a safe and supportive environment, ensured contract for safety, provided clear and simple instructions, attempted to orient to reality, encouraged participation on the unit and independent completion of ADLs, provided redirection as needed and maintained clear boundaries, and maintained Q 15 min safety checks. Restraints/seclusion/emergency medication: N/A Justification of Continued Inpatient Treatment: Per Dr. Salinas, pt. continues to require medication adjustments and a safe and supportive environment.
[2021-08-15] MEDS: LORazepam 1 MG tablet PO SCH ×3 (07:44→20:42)
[2021-08-15] MEDS: amantadine 100 MG capsule PO SCH ×2 (07:44→20:42)
[2021-08-15] MEDS: LOXAPINE SUCCINATE 25 MG CAPSULE PO SCH ×2 (07:44→20:42)
[2021-08-15] MEDS: POTASSIUM BICARBONATE/CIT AC 10 MEQ TABLET.EFF PO SCH (07:44)
[2021-08-15] MEDS: lactobacillus rhamnosus 10,000 MMU CELLS/CAPSULE PO SCH ×2 (07:45→20:42)
[2021-08-15] MEDS: ibuprofen tablet 400 MG TABLET PO SCH ×3 (07:45→20:43)
[2021-08-15] MEDS: pantoprazole 40mg Tablet.DR PO SCH (07:45)
[2021-08-15] MEDS: docusate sod 100mg capsule PO SCH ×2 (07:45→20:42)
[2021-08-15 08:58] VITALS: BP 108/74
--- NOTE | 2021-08-15 17:42 | NUR ---
Nursing Progress Note: Kenneth Legal hold: LPS Client on involuntary status for GD. Report received from nurse with use of SBAR: Courtney Cleary RN Why are they here: Patient admitted to [facility] on 5150 GD. 5150 states Genoveva (payee) was concerned he could not utilize his funds and they were concerned he could not obtain food and clothing due to his mental illness. He has a wound to his right finger and states delusions regarding a nuclear submarine. Public guardian will serve 5 day notice for temporary conservatorship. He does have a history of LPS conservatorship. Assessment What has happened this shift: Patient received sleeping in bed at change of shift. He was awoken for scheduled medication and 1:1 assessment. Patient endorsed that he is doing fine this morning. He was receptive to medication. He joined in the community room with peers for breakfast. Patient presents as guarded and withdrawn, noted sleeping in his room the majority of the day. He denies SI/HI, AH or VH. Does not appear to be responding to internal stimuli. He was observed sitting in the community room later in the day watching a movie by himself. Patient noted laughing appropriately at a scene in the movie. He was self-isolative the majority of the day, however, did participate on the patio this shift. He is not observed communicating with other peers on the unit. Patient noted walking around the unit later in the shift listening to headphones and singing a song out loud. He participated for all meal and snack times in the community room. S/I, H/I: Denies A/VH: Denies, pt. does not appear internally preoccupied Sleep: See sleep assessment. Patient naps intermittently during the shift ADL's: Pt. requires direction and encouragement Group attendance: No Were meds taken: Yes Any med S/E: None Mental Status Exam Appearance: Somewhat disheveled, however appropriately dressed Eye contact: Fair Behavior: Cooperative, guarded, and withdrawn Speech: Soft, responds to direct questions Mood: Guarded Affect: Blunted with animation Thought process: Disorganized Thought Content: Paranoid delusions. Meeting needs. Cognition: A&O X2 (name and place) Insight: Poor Judgment: Poor Interventions PRN's used: None Therapeutic interventions: Maintained a safe and supportive environment, ensured contract for safety, provided clear and simple instructions, attempted to orient to reality, encouraged participation on the unit and independent completion of ADLs, provided redirection as needed and maintained clear boundaries, and maintained Q 15 min safety checks. Restraints/seclusion/emergency medication: N/A Justification of Continued Inpatient Treatment: Per Dr. Salinas, pt. continues to require medication adjustments and a safe and supportive environment.
[2021-08-15 19:00] VITALS: BP 120/83
--- NOTE | 2021-08-16 03:22 | NUR ---
Nursing Progress Note: Kenneth Legal hold: LPS Client on involuntary status for GD. Report received from nurse with use of SBAR: Kenneth RN Why are they here: Patient admitted to [facility] on 5150 GD. 5150 states Genoveva (payee) was concerned he could not utilize his funds and they were concerned he could not obtain food and clothing due to his mental illness. He has a wound to his right finger and states delusions regarding a nuclear submarine. Public guardian will serve 5 day notice for temporary conservatorship. He does have a history of LPS conservatorship. Assessment What has happened this shift: Patient received in his bedroom with headphones on singing out loud. Pt states he is doing good and that he likes the music. Pt states +AH and that he hears the voices through the headphones; they tell me things all the time; at least 3-4 people. Pt states I am way out there. (Patient laughing and smiling.) Pt up for snacks and took HS medications without any issue. Pt to bed shortly after. S/I, H/I: Denies A/VH: Denies, pt. does not appear internally preoccupied Sleep: ADL's: Pt. requires direction and encouragement Group attendance: No Were meds taken: Yes Any med S/E: None Mental Status Exam Appearance: Somewhat disheveled, however appropriately dressed Eye contact: Fair Behavior: Cooperative, guarded, and withdrawn Speech: Soft, responds to direct questions Mood: Guarded Affect: Blunted with animation Thought process: Disorganized Thought Content: Paranoid delusions. Meeting needs. Cognition: A&O X2 (name and place) Insight: Poor Judgment: Poor Interventions PRN's used: None Therapeutic interventions: Maintained a safe and supportive environment, ensured contract for safety, provided clear and simple instructions, attempted to orient to reality, encouraged participation on the unit and independent completion of ADLs, provided redirection as needed and maintained clear boundaries, and maintained Q 15 min safety checks. Restraints/seclusion/emergency medication: N/A Justification of Continued Inpatient Treatment: Per Dr. Salinas, pt. continues to require medication adjustments and a safe and supportive environment.
[2021-08-16] MEDS ORDERED: POTASSIUM CHLORIDE 20 MEQ/15 ML oral solution PO SCH (08:00)
[2021-08-16 08:09] VITALS: BP 94/54
[2021-08-16] MEDS: pantoprazole 40mg Tablet.DR PO SCH (09:07)
[2021-08-16] MEDS: amantadine 100 MG capsule PO SCH ×2 (09:07→20:38)
[2021-08-16] MEDS: LORazepam 1 MG tablet PO SCH ×4 (09:07→20:37)
[2021-08-16] MEDS: lactobacillus rhamnosus 10,000 MMU CELLS/CAPSULE PO SCH ×2 (09:07→20:38)
[2021-08-16] MEDS: ibuprofen tablet 400 MG TABLET PO SCH ×3 (09:07→20:40)
[2021-08-16] MEDS: docusate sod 100mg capsule PO SCH ×2 (09:07→20:38)
[2021-08-16] MEDS: LOXAPINE SUCCINATE 25 MG CAPSULE PO SCH ×2 (09:07→20:37)
--- NOTE | 2021-08-16 12:12 | NUR ---
Lab for blood glucose scanned under wrong pt. Discontinue BS for this pt.
--- NOTE | 2021-08-16 14:49 | NUR ---
Nursing Progress Note: Legal hold: LPS Client on involuntary status for GD. Report received from nurse with use of SBAR: Courtney Cleary RN Why are they here: Patient admitted to [facility] on 5150 GD. 5150 states Genoveva (payee) was concerned he could not utilize his funds and they were concerned he could not obtain food and clothing due to his mental illness. He has a wound to his right finger and states delusions regarding a nuclear submarine. Public guardian will serve 5 day notice for temporary conservatorship. He does have a history of LPS conservatorship. Assessment What has happened this shift: Patient received sleeping in bed at change of shift. He was awoken for breakfast, med pass and his AM assessment. Pt spent most of the day socializing during meal and snack times. Then sitting by the window in his room with the headphones on singing out loud. Pt appears calm today. In the late afternoon pt observed resting on his bed with his eyes covered with the headphones on. S/I, H/I: Denies A/VH: Denies, pt. does not appear internally preoccupied Sleep: Pt napped in the afternoon ADL's: Pt. requires direction and encouragement Group attendance: No Were Meds taken: Yes Any med S/E: None Mental Status Exam Appearance: Somewhat disheveled, however appropriately dressed Eye contact: Fair Behavior: Cooperative, guarded Speech: Soft, responds to direct questions Mood: Guarded Affect: Blunted with animation Thought process: Disorganized Thought Content: Meeting needs. Cognition: A&O X2 (name and place) Insight: Poor Judgment: Poor Interventions PRN's used: None Therapeutic interventions: Provided 1:1 assessment with therapeutic communication and active listening, provided clear and simple instructions, encouraged participation on the unit and independent completion of ADLs, medication administration/education/monitoring, and maintained Q 15 min safety checks. Restraints/seclusion/emergency medication: N/A Justification of Continued Inpatient Treatment: Per Dr. Salinas, pt. continues to require medication adjustments and a safe and supportive environment.
[2021-08-16 19:29] VITALS: BP 120/78
[2021-08-16] MEDS: traZODone 50mg tablet PO SCH (20:38)
--- NOTE | 2021-08-17 01:49 | NUR ---
Nursing Progress Note: Legal hold:LPS Client on involuntary status for GD. Report received from nurse with use of SBAR: KEIRA Cooper Why are they here: Patient admitted to [facility] on 5150 GD. 5150 states Genoveva (payee) was concerned he could not utilize his funds and they were concerned he could not obtain food and clothing due to his mental illness. He has a wound to his right finger and states delusions regarding a nuclear submarine. Public guardian will serve 5 day notice for temporary conservatorship. He does have a history of LPS conservatorship. Assessment What has happened this shift: Pt makes good eye contact and is cooperative with 1:1. Pt eats a snack and takes HS medications without issue. Pt smiles occasionally. He listens to headphones and hums to himself. Pt states his right arm hurts because he was injected with glue. Motrin 800 mg as scheduled. Pt denies SI/HI/AH/VH at this time. He does not respond to internal stimuli, but is still making delusional statements. S/I, H/I: Denies A/VH: Denies, pt. does not appear internally preoccupied Sleep: see sleep hours ADL's: Pt. requires some direction and encouragement Group attendance: N/A Were meds taken: Yes Any med S/E: Decreased WBC count Mental Status Exam Appearance: Somewhat disheveled Eye contact: Fair Behavior: Cooperative Speech: WNL Mood: subdued Affect: flat Thought process: Delusional Thought Content: bored in his room Cognition: A&O X2 (name and place) Insight: Poor Judgment: Poor Interventions PRN's used: none Therapeutic interventions: Maintained a safe and supportive environment, ensured contract for safety, provided clear and simple instructions, attempted to orient to reality, monitored for s/s of infection and provided needed interventions, maintained isolation for Covid precautions, and maintained Q 15 min safety checks. Restraints/seclusion/emergency medication: N/A Justification of Continued Inpatient Treatment: Pt. continues to require a safe and supportive environments and medication adjustments.
[2021-08-17] MEDS: pantoprazole 40mg Tablet.DR PO SCH (07:52)
[2021-08-17] MEDS: amantadine 100 MG capsule PO SCH ×2 (07:52→20:40)
[2021-08-17] MEDS: lactobacillus rhamnosus 10,000 MMU CELLS/CAPSULE PO SCH ×2 (07:52→20:40)
[2021-08-17] MEDS: ibuprofen tablet 400 MG TABLET PO SCH ×3 (07:52→20:39)
[2021-08-17] MEDS: LOXAPINE SUCCINATE 25 MG CAPSULE PO SCH ×2 (07:52→20:39)
[2021-08-17] MEDS: docusate sod 100mg capsule PO SCH ×2 (07:53→20:40)
[2021-08-17] MEDS: LORazepam 1 MG tablet PO SCH ×3 (07:53→20:39)
[2021-08-17 08:00] VITALS: BP 98/63
--- NOTE | 2021-08-17 16:13 | NUR ---
Nursing Progress Note Legal hold: LPS Conserved Client on involuntary status for GD Report received from RN with use of SBAR Why are they here: Patient admitted to [facility] on 5150 GD. 5150 states Genoveva (payee) was concerned he could not utilize his funds and they were concerned he could not obtain food and clothing due to his mental illness. He has a wound to his right finger and states delusions regarding a nuclear submarine. Public guardian will serve 5 day notice for temporary conservatorship. He does have a history of LPS conservatorship. Assessment What has happened this shift: Received Pt in bed sleeping w/o distress at the beginning of the shift. Pt woke and cooperative with vitals. Kenneth eats all meals well and asks for snacks. Pt pleasant and cooperative today and took meds w/o issue. Pt continues to speak in a disjointed fashion and delusional; [place], millions of em. Fresh on a platter. Pt spent most of his day listening to headphones, pacing and watching TV. S/I, H/I: Denies A/VH: Denies Sleep: None this shift ADL's: Needs encouragement Group attendance: No Were meds taken: Yes Any med S/E: None Mental Status Exam Appearance: Casual in own clothes Eye contact: Fair Behavior: Cooperative, paranoid Speech: Delusional Mood: Guarded Affect: Constricted Thought process: Disorganized Thought Content: Paranoid delusions Cognition: A&O X2 (name and place) Insight: Poor Judgment: Poor Interventions PRN's used: None Therapeutic interventions: Maintained a safe and supportive environment, ensured contract for safety, provided clear and simple instructions, attempted to orient to reality, monitored for any s/s of infection, encouraged participation on the unit and independent completion of ADLs, and maintained Q 15 min safety checks. Restraints/seclusion/emergency medication: N/A Justification of Continued Inpatient Treatment: Pt. continues to require a safe and supportive environment and medication adjustments.
[2021-08-17 19:48] VITALS: BP 107/80
[2021-08-17 19:49] VITALS: BP 107/80
[2021-08-17] MEDS: traZODone 50mg tablet PO SCH (20:39)
--- NOTE | 2021-08-18 01:19 | NUR ---
Nursing Progress Note Legal hold: LPS Conserved Client on involuntary status for GD Report received from RN with use of SBAR Why are they here: Patient admitted to [facility] on 5150 GD. 5150 states Genoveva (payee) was concerned he could not utilize his funds and they were concerned he could not obtain food and clothing due to his mental illness. He has a wound to his right finger and states delusions regarding a nuclear submarine. Public guardian will serve 5 day notice for temporary conservatorship. He does have a history of LPS conservatorship. Assessment What has happened this shift: Pt in room coughing and spitting into sink loudly and repetitively. Pt said he ate too much toothpaste. He said he wants to go home per pt he has a place to live. Pt delusional , he said when he was staying at the [place] motel some of the time he was only 1 and 1/2 feet tall but when he laid on the bed he was 10 feet tall. Per pt it was because he was not getting his steroids. He also said a spider got in his leg and he grew a spider leg. Pt was pleasant and cooperative. He took his meds after asking several times if they were the same medications he took the night before. Pt went to sleep but woke up about hour later yelling Fuck loud enough to be heard throughout the unit. Took repeat dose of Trazodone. While insisting angrily "you gave me the wrong meds" went back to sleep sleeping at this time. S/I, H/I: Denies A/VH: Denies Sleep: None this shift ADL's: Needs encouragement Group attendance: No Were meds taken: Yes Any med S/E: None Mental Status Exam Appearance: Casual in own clothes Eye contact: Fair Behavior: Cooperative, paranoid Speech: Delusional Mood: Guarded Affect: Constricted Thought process: Disorganized Thought Content: Paranoid delusions Cognition: A&O X2 (name and place) Insight: Poor Judgment: Poor Interventions PRN's used: None Therapeutic interventions: Maintained a safe and supportive environment, ensured contract for safety, provided clear and simple instructions, attempted to orient to reality, monitored for any s/s of infection, encouraged participation on the unit and independent completion of ADLs, and maintained Q 15 min safety checks. Restraints/seclusion/emergency medication: N/A Justification of Continued Inpatient Treatment: Pt. continues to require a safe and supportive environment and medication adjustments.
[2021-08-18] MEDS: LOXAPINE SUCCINATE 25 MG CAPSULE PO SCH ×2 (07:57→20:41)
[2021-08-18] MEDS: docusate sod 100mg capsule PO SCH ×2 (07:57→20:41)
[2021-08-18] MEDS: ibuprofen tablet 400 MG TABLET PO SCH ×3 (07:57→20:41)
[2021-08-18] MEDS: lactobacillus rhamnosus 10,000 MMU CELLS/CAPSULE PO SCH ×2 (07:57→20:41)
[2021-08-18] MEDS: amantadine 100 MG capsule PO SCH ×2 (07:57→20:40)
[2021-08-18] MEDS: pantoprazole 40mg Tablet.DR PO SCH (07:57)
[2021-08-18] MEDS: LORazepam 1 MG tablet PO SCH ×3 (07:59→20:41)
[2021-08-18 08:00] VITALS: BP 120/62
--- NOTE | 2021-08-18 17:24 | NUR ---
Nursing Progress Note: Kenneth Hernadez Legal hold: LPS Conserved Client on involuntary status for GD Report received from RN with use of SBAR Why are they here: Patient admitted to [facility] on 5150 GD. 5150 states Genoveva (payee) was concerned he could not utilize his funds and they were concerned he could not obtain food and clothing due to his mental illness. He has a wound to his right finger and states delusions regarding a nuclear submarine. Public guardian will serve 5 day notice for temporary conservatorship. He does have a history of LPS conservatorship. Assessment What has happened this shift: Pt. received sleeping in his room, woke to receive his medications and 1:1 assessment completed at the bedside. Pt. reports he was admitted I needed surgery he denies SI, HI, but endorses AH stating I can hear them because they know Im hear. Pt. discussed his discharge plan to go to a hotel with his money Pt. presents as cooperative, delusional, and paranoid. Pt. ate his meals in the dining room with cohorts, he remains withdrawn socially often not engaging with others at the table. Pt. spent half of the shift OOB watching tv, and sitting in his room looking out of the window. Pt. approached technical publications writer presenting as delusional stating I cant eat pork because it makes my hands disappear and the bones of my legs disappear. Received S/I, H/I: Denies A/VH: Denies Sleep: Napped X1 ADL's: Needs prompting Group attendance: No Were meds taken: Yes Any med S/E: None Mental Status Exam Appearance: Middle aged male, disheveled, broken and decayed teeth wearing scrubs and hoodie. Eye contact: Fair Behavior: Cooperative, paranoid Speech: Delusional Mood: Guarded Affect: Constricted Thought process: Disorganized Thought Content: Paranoid delusions Cognition: A&O X2 Insight: Poor Judgment: Poor Interventions PRN's used: None Therapeutic interventions: Maintained a safe and supportive environment, ensured contract for safety, provided clear and simple instructions, attempted to orient to reality, monitored for any s/s of infection, encouraged participation on the unit and independent completion of ADLs, and maintained Q 15 min safety checks. Restraints/seclusion/emergency medication: N/A Justification of Continued Inpatient Treatment: Pt. continues to require a safe and supportive environment and medication adjustments.
[2021-08-18 19:26] VITALS: BP 108/77
[2021-08-18] MEDS: traZODone 50mg tablet PO SCH (20:41)
--- NOTE | 2021-08-19 00:49 | NUR ---
Nursing Progress Note Legal hold: LPS Conserved Client on involuntary status for GD Report received from RN with use of SBAR Why are they here: Patient admitted to [facility] on 5150 GD. 5150 states Genoveva (payee) was concerned he could not utilize his funds and they were concerned he could not obtain food and clothing due to his mental illness. He has a wound to his right finger and states delusions regarding a nuclear submarine. Public guardian will serve 5 day notice for temporary conservatorship. He does have a history of LPS conservatorship. Assessment What has happened this shift: Pt sitting in room with headphones on and singing loudly. Pt remained in his room all shift. Took his meds willingly though he did say he was not sure they were the right ones. He retunred imediatly to wearing heap did not make any delucional comments Pt was pleasant and cooperative. He took his meds after asking several times if they were the same medications he took the night before. Pt went to sleep but woke up about hour later yelling Fuck loud enough to be heard throughout the unit. Took repeat dose of Trazodone. While insisting angrily "you gave me the wrong meds" went back to sleep sleeping at this time. S/I, H/I: Denies A/VH: Denies Sleep: None this shift ADL's: Needs encouragement Group attendance: No Were meds taken: Yes Any med S/E: None Mental Status Exam Appearance: Casual in own clothes Eye contact: Fair Behavior: Cooperative, paranoid Speech: Delusional Mood: Guarded Affect: Constricted Thought process: Disorganized Thought Content: Paranoid delusions Cognition: A&O X2 (name and place) Insight: Poor Judgment: Poor Interventions PRN's used: None Therapeutic interventions: Maintained a safe and supportive environment, ensured contract for safety, provided clear and simple instructions, attempted to orient to reality, monitored for any s/s of infection, encouraged participation on the unit and independent completion of ADLs, and maintained Q 15 min safety checks. Restraints/seclusion/emergency medication: N/A Justification of Continued Inpatient Treatment: Pt. continues to require a safe and supportive environment and medication adjustments. Addendum: 08/19/21 at 0055 by Mary Pierre RN Disregard note accidently saved before complete
--- NOTE | 2021-08-19 00:55 | NUR ---
Nursing Progress Note Legal hold: LPS Conserved Client on involuntary status for GD Report received from RN with use of SBAR Why are they here: Patient admitted to [facility] on 5150 GD. 5150 states Genoveva (payee) was concerned he could not utilize his funds and they were concerned he could not obtain food and clothing due to his mental illness. He has a wound to his right finger and states delusions regarding a nuclear submarine. Public guardian will serve 5 day notice for temporary conservatorship. He does have a history of LPS conservatorship. Assessment What has happened this shift: At start of shift pt sitting in room with headphones on and singing loudly. Pt remained in his room all shift. Took his meds willingly though he did say he was not sure they were the right ones. He did not make any delusional comments this shift. Most likely because after taking his meds he returned immediately to wearing headphones and singing. Pt went to sleep and has been sleeping quietly. S/I, H/I: Denies A/VH: Denies Sleep: Asleep at this time ADL's: Needs encouragement Group attendance: No Were meds taken: Yes Any med S/E: None Mental Status Exam Appearance: Casual in own clothes Eye contact: Fair Behavior: Cooperative, paranoid Speech: Delusional Mood: Guarded Affect: Constricted Thought process: Disorganized Thought Content: Paranoid delusions Cognition: A&O X2 (name and place) Insight: Poor Judgment: Poor Interventions PRN's used: None Therapeutic interventions: Maintained a safe and supportive environment, ensured contract for safety, provided clear and simple instructions, attempted to orient to reality, monitored for any s/s of infection, encouraged participation on the unit and independent completion of ADLs, and maintained Q 15 min safety checks. Restraints/seclusion/emergency medication: N/A Justification of Continued Inpatient Treatment: Pt. continues to require a safe and supportive environment and medication adjustments.
[2021-08-19] MEDS: lactobacillus rhamnosus 10,000 MMU CELLS/CAPSULE PO SCH ×2 (07:59→20:11)
[2021-08-19] MEDS: amantadine 100 MG capsule PO SCH ×2 (07:59→20:10)
[2021-08-19] MEDS: pantoprazole 40mg Tablet.DR PO SCH (07:59)
[2021-08-19 08:00] VITALS: BP 115/61
[2021-08-19] MEDS: docusate sod 100mg capsule PO SCH ×2 (08:00→20:11)
[2021-08-19] MEDS: ibuprofen tablet 400 MG TABLET PO SCH ×3 (08:00→20:11)
[2021-08-19] MEDS ORDERED: LORazepam 0.5 MG tablet PO SCH (08:00)
[2021-08-19] MEDS: LOXAPINE SUCCINATE 25 MG CAPSULE PO SCH ×2 (08:00→20:11)
--- NOTE | 2021-08-19 08:29 | NUR ---
Reassessment: Pt dx COVID-19 08/03 per EMR. Pt currently on regular diet w/ ~100% intake of meals w/ double eggs WB. Pt noted w/ a one-time glucose check of 328 08/16. Recommend routine glucose checks and possible subsequent glycemic protocol if MD agreeable. LBM 08/17. Will continue to monitor. Recommendations: 1. Continue regular diet as tolerated; double eggs WB 2. Routine Glu checks if MD agreeable 3. Bowel care per Rx 4. Weekly wt Addendum: 08/19/21 at [address] Amended: Links added.
[2021-08-19] MEDS: LORazepam 1 MG tablet PO SCH ×2 (13:54→20:11)
--- NOTE | 2021-08-19 16:04 | NUR ---
Nursing Progress Note: Legal hold:LPS Client on involuntary status for GD. Report received from nurse with use of SBAR: KEIRA Ridley Why are they here: Patient admitted to [facility] on 5150 GD. 5150 states Genoveva (payee) was concerned he could not utilize his funds and they were concerned he could not obtain food and clothing due to his mental illness. He has a wound to his right finger and states delusions regarding a nuclear submarine. Public guardian will serve 5 day notice for temporary conservatorship. He does have a history of LPS conservatorship. Assessment What has happened this shift: Received pt. sleeping in bed at the beginning of the shift, he was awoken for breakfast and afterwards returned back to bed as is his routine. Pt. isolated in his room throughout much of the day napping intermittently and listening to music with headphones. At approximately 1545, he was informed by staff that he would be getting a new roommate. Pt. became very agitated and began anxiously pacing the hallway yelling, "This asshole is trying to give me an f...ing roommate!" Pt. then began making delusional statements regarding his belief that he has his own house to discharge to a job waiting for him. Pt's agitated/anxious behaviors were endorsed to JAMES Jo who gave orders to increased Ativan back to prior dosage of 1mg TID (first dose administered). Pt. was complaint with medication, and was able to be redirected and apologized to this play writer. He continued on in a disorganized manner making various delusional statements, such as, "I was born with wings in a swimming pool." Also, "Cigarettes, [place], and beer, heel my bones." Pt. did not exhibit any further agitated outbursts, will continue to monitor. S/I, H/I: Denies A/VH: Denies, pt. does not appear internally preoccupied Sleep: Sleep hours are 7.5, and pt. naps intermittently during the shift ADL's: Pt. requires direction and encouragement Group attendance: No Were meds taken: Yes Any med S/E: None Mental Status Exam Appearance: Somewhat disheveled, however appropriately dressed Eye contact: Fair Behavior: Cooperative, guarded, and withdrawn Speech: Soft, responds to direct questions Mood: Guarded Affect: Blunted with animation Thought process: Disorganized Thought Content: Paranoid delusions Cognition: A&O X2 (name and place) Insight: Poor Judgment: Poor Interventions PRN's used: None Therapeutic interventions: Maintained a safe and supportive environment, ensured contract for safety, provided clear and simple instructions, attempted to orient to reality, encouraged participation on the unit and independent completion of ADLs, monitored behaviors and provided intervention and redirection as needed, clarified order for Ativan and received orders to increased back to prior dosage, and maintained Q 15 min safety checks. Restraints/seclusion/emergency medication: N/A Justification of Continued Inpatient Treatment: Per Sandro PA, pt. requires more time to allow his medication to reach it's therapeutic effect along with a safe and supportive environment.
[2021-08-19 20:00] VITALS: BP 116/85
[2021-08-19] MEDS: traZODone 50mg tablet PO SCH (20:11)
--- NOTE | 2021-08-20 02:26 | NUR ---
Nursing Progress Note Legal hold: LPS Conserved Client on involuntary status for GD Report received from KEIRA Cooper with use of SBAR Why are they here: Patient admitted to [facility] on 5150 GD. 5150 states Genoveva (payee) was concerned he could not utilize his funds and they were concerned he could not obtain food and clothing due to his mental illness. He has a wound to his right finger and states delusions regarding a nuclear submarine. Public guardian will serve 5 day notice for temporary conservatorship. He does have a history of LPS conservatorship. Assessment What has happened this shift: Patient was seen in his room for 1:1. He was still irritable about getting a roommate. When asked about his day he replied, "I want out of here." He turned and put his headphones on. Later he came to community room for snack time. His HS meds were brought to him there, "I don't want those, they don't work." He tried to hand them back, but I wouldn't take them. He went ahead and took them. Patient went back to his room and put headphones on, and started singing loudly, while his roommate tried to sleep. S/I,H/I: Denies A/VH: Denies Sleep: See sleep assessment ADL's: Needs encouragement Group attendance: No Were meds taken: Yes Any med S/E: None reported or observed. Mental Status Exam Appearance: Disheveled, but casual in own clothes Eye contact: Fair Behavior: Cooperative, paranoid, guarded, isolative Speech: Delusional Mood: Guarded Affect: Constricted Thought process: Disorganized Thought Content: Paranoid delusions Cognition: A&O X2 (name and place) Insight: Poor Judgment: Poor Interventions PRN's used: None Therapeutic interventions: Maintained a safe and supportive environment, ensured contract for safety, provided clear and simple instructions, attempted to orient to reality, monitored for any s/s of infection, encouraged participation on the unit and independent completion of ADLs, and maintained Q 15 min safety checks. Restraints/seclusion/emergency medication: N/A Justification of Continued Inpatient Treatment: Pt. continues to require a safe and supportive environment and medication adjustments.
[2021-08-20 08:00] VITALS: BP 114/73
[2021-08-20] MEDS: docusate sod 100mg capsule PO SCH ×2 (08:04→20:04)
[2021-08-20] MEDS: LORazepam 1 MG tablet PO SCH ×3 (08:04→20:04)
[2021-08-20] MEDS: ibuprofen tablet 400 MG TABLET PO SCH ×3 (08:04→20:04)
[2021-08-20] MEDS: lactobacillus rhamnosus 10,000 MMU CELLS/CAPSULE PO SCH ×2 (08:04→20:04)
[2021-08-20] MEDS: pantoprazole 40mg Tablet.DR PO SCH (08:04)
[2021-08-20] MEDS: amantadine 100 MG capsule PO SCH ×2 (08:05→20:04)
[2021-08-20] MEDS: LOXAPINE SUCCINATE 25 MG CAPSULE PO SCH ×2 (08:05→20:05)
[2021-08-20] MEDS ORDERED: PANT40TA54 PO (11:41)
[2021-08-20] MEDS ORDERED: AMA100C PO (11:41)
[2021-08-20] MEDS ORDERED: IBUP-1984 PO (11:41)
[2021-08-20] MEDS ORDERED: DOCU100C40 PO (11:41)
[2021-08-20] MEDS ORDERED: LOXA25CA PO ×2 (11:41)
[2021-08-20] MEDS ORDERED: ATI1T PO (11:41)
[2021-08-20] MEDS ORDERED: TRAZ-251 PO (11:41)
--- NOTE | 2021-08-20 13:36 | NUR ---
Nursing Progress Note: Legal hold:LPS Client on involuntary status for GD. Report received from nurse with use of SBAR: KEIRA Ridley Why are they here: Patient admitted to [facility] on 5150 GD. 5150 states Genoveva (payee) was concerned he could not utilize his funds and they were concerned he could not obtain food and clothing due to his mental illness. He has a wound to his right finger and states delusions regarding a nuclear submarine. Public guardian will serve 5 day notice for temporary conservatorship. He does have a history of LPS conservatorship. Assessment What has happened this shift: Received pt. up and pacing in the hallway wearing headphones at the beginning of the shift. He greeted this insurance underwriter animatedly. 1:1 completed later at bedside, pt. continues to deny all MH s/s, but appears to be minimizing. As the conversation continues, pt. presents with increased disorganization and begins making delusional statements. He states, "I was drinking ink out of the sink last night from the 100 dollar bills. I put some in my eye." Pt. was provided education by this insurance underwriter not to put things into his eyes and he reported understanding. No s/s of redness or infection are present in eyes, will continue to monitor. Pt. will discharge tomorrow to [facility], and he reports contentment. S/I, H/I: Denies A/VH: Denies, pt. does not appear internally preoccupied Sleep: Sleep hours are 6.75, and pt. naps intermittently during the shift ADL's: Pt. requires direction and encouragement Group attendance: No Were meds taken: Yes Any med S/E: None Mental Status Exam Appearance: Somewhat disheveled, however appropriately dressed Eye contact: Fair Behavior: Cooperative, guarded, and withdrawn Speech: Soft, responds to direct questions Mood: Guarded Affect: Blunted with animation Thought process: Disorganized Thought Content: Paranoid delusions Cognition: A&O X2 (name and place) Insight: Poor Judgment: Poor Interventions PRN's used: None Therapeutic interventions: Maintained a safe and supportive environment, ensured contract for safety, provided clear and simple instructions, attempted to orient to reality, encouraged participation on the unit and independent completion of ADLs, monitored behaviors and provided intervention and redirection as needed, and maintained Q 15 min safety checks. Restraints/seclusion/emergency medication: N/A Justification of Continued Inpatient Treatment: Per JAMES Jo, pt. continues to require a safe and supportive environment, he will discharge to [facility] tomorrow.
--- NOTE | 2021-08-20 14:24 | NUR ---
PLACEMENT UPDATE Kenneth has been accepted at [facility]. They have a bed available for him now. He needs 30 day of meds, chest x-ray, and Covid test for admittance. Once medications have been delivered, insurance writer will coordinate with [facility] office for transportation. BHAVANA Castanon
[2021-08-20 19:58] VITALS: BP 105/66
[2021-08-20] MEDS: traZODone 50mg tablet PO SCH (20:05)
--- NOTE | 2021-08-21 00:55 | NUR ---
Nursing Progress Note:Kenneth Legal hold:LPS Client on involuntary status for GD. Report received from nurse with use of SBAR: Kenneth RN Why are they here: Patient admitted to [facility] on 5150 GD. 5150 states Genoveva (payee) was concerned he could not utilize his funds and they were concerned he could not obtain food and clothing due to his mental illness. He has a wound to his right finger and states delusions regarding a nuclear submarine. Public guardian will serve 5 day notice for temporary conservatorship. He does have a history of LPS conservatorship. Assessment What has happened this shift: Received pt. in his room sitting by the window listening to the headphones. When asked how the pt is doing the pt responds I dont know. Pt denies SI/AH but states he hasnt been listening to the satellite. Pt stated he was a little sad, didnt know why but for no reason he was sad today. Pt up for snacks and took all HS medications. S/I, H/I: Denies A/VH: Denies, pt. does not appear internally preoccupied Sleep: ADL's: Pt. requires direction and encouragement Group attendance: No Were meds taken: Yes Any med S/E: None Mental Status Exam Appearance: Somewhat disheveled, however appropriately dressed Eye contact: Fair Behavior: Cooperative, guarded, and withdrawn Speech: Soft, responds to direct questions Mood: Guarded Affect: Blunted with animation Thought process: Disorganized Thought Content: Paranoid delusions Cognition: A&O X2 (name and place) Insight: Poor Judgment: Poor Interventions PRN's used: None Therapeutic interventions: Maintained a safe and supportive environment, ensured contract for safety, provided clear and simple instructions, attempted to orient to reality, encouraged participation on the unit and independent completion of ADLs, monitored behaviors and provided intervention and redirection as needed, and maintained Q 15 min safety checks. Restraints/seclusion/emergency medication: N/A Justification of Continued Inpatient Treatment: Per JAMES Jo, pt. continues to require a safe and supportive environment, he will discharge to [facility] tomorrow.
[2021-08-21 08:00] VITALS: BP 136/86
[2021-08-21] MEDS: LOXAPINE SUCCINATE 25 MG CAPSULE PO SCH ×2 (08:05→20:03)
[2021-08-21] MEDS: docusate sod 100mg capsule PO SCH ×2 (08:05→20:03)
[2021-08-21] MEDS: ibuprofen tablet 400 MG TABLET PO SCH ×3 (08:05→20:03)
[2021-08-21] MEDS: LORazepam 1 MG tablet PO SCH ×3 (08:05→20:03)
[2021-08-21] MEDS: amantadine 100 MG capsule PO SCH ×2 (08:05→20:03)
[2021-08-21] MEDS: pantoprazole 40mg Tablet.DR PO SCH (08:05)
[2021-08-21] MEDS: lactobacillus rhamnosus 10,000 MMU CELLS/CAPSULE PO SCH ×2 (08:05→20:03)
--- NOTE | 2021-08-21 13:04 | NUR ---
Nursing Progress Note: Legal hold: LPS Client on involuntary status for GD. Report received from nurse with use of SBAR: KEIRA Ridley Why are they here: Patient admitted to [facility] on 5150 GD. 5150 states Genoveva (payee) was concerned he could not utilize his funds and they were concerned he could not obtain food and clothing due to his mental illness. He has a wound to his right finger and states delusions regarding a nuclear submarine. Public guardian will serve 5 day notice for temporary conservatorship. He does have a history of LPS conservatorship. Assessment What has happened this shift: Received patient sleeping at shift change, no distress noted. Pt remained in bed until breakfast. Pt was compliant with care and medication. Pt keeps to himself either pacing the fraga listening to the headphones or sitting in his room. Pt is animated at times dancing to the music from headset. Pt continues to present with disorganized thoughts, but remains redirectable. Most current SW note, pt has been accepted at [facility] pending admit criteria. S/I, H/I: Pt denies both. A/VH: Denies, pt. does not appear internally preoccupied Sleep: 7.75 hours per sleep assessment. Intermittent naps. ADL's: Pt. requires direction and encouragement Group attendance: No scheduled group today. Were meds taken: Yes, without issue. Any med S/E: None reported or observed. Mental Status Exam Appearance: Somewhat disheveled, however appropriately dressed Eye contact: Fair Behavior: Cooperative, guarded, and withdrawn Speech: Soft, minimal. Mood: Euthymic Affect: Blunted with animation Thought process: Disorganized Thought Content: Paranoid delusions Cognition: A&O X2 (name and place) Insight: Poor Judgment: Poor Interventions PRN's used: None Therapeutic interventions: Maintained a safe and supportive environment, provided clear and simple instructions, attempted to orient to reality, encouraged participation on the unit, monitored behaviors and provided intervention and redirection as needed, and maintained Q 15 min safety checks. Restraints/seclusion/emergency medication: N/A Justification of Continued Inpatient Treatment: Patient is LPS conserved and is at baseline. Pt has been accepted at [facility] and will transfer as soon as admission criteria is complete.
--- NOTE | 2021-08-21 17:42 | NUR ---
Group Art Tx. Continued: Patient was able to engaged in the activity and group process. She remains focused on her spiritual life, activities and beliefs. She was pleasant, able to share, yet remains guarded and quiet. *Please refer to [employer] for a complete review of the session. Cari Romero, [id number], Art Therapist Addendum: 08/21/21 at 1743 by Cari Romero SS Amended: Links added.
[2021-08-21] MEDS: traZODone 50mg tablet PO SCH (20:03)
[2021-08-21 20:53] VITALS: BP 142/90
--- NOTE | 2021-08-21 22:59 | NUR ---
Nursing Progress Note: Kenneth Legal hold: LPS Client on involuntary status for GD. Report received from nurse with use of SBAR: KEIRA Ridley Why are they here: Patient admitted to [facility] on 5150 GD. 5150 states Genoveva (payee) was concerned he could not utilize his funds and they were concerned he could not obtain food and clothing due to his mental illness. He has a wound to his right finger and states delusions regarding a nuclear submarine. Public guardian will serve 5 day notice for temporary conservatorship. He does have a history of LPS conservatorship. Assessment What has happened this shift: Received patient sitting in his chair looking out the window with headphones on. Pt denies MH symptoms but talks about a skull and head being bigger than his. He states he is happy and needs to get out of here and have a smoke or chew. He states my chew wont have my voice right. My Walsh sub has to get out of the ocean. Pt up for snacks and HS medications given. Pt has disorganized thoughts about eating too many raisins and bananas and hes 3 feet tall, something about walking to the liquor store and hitting a black man and his face turned into a beetle. Pt became somewhat agitated after snack time, using foul language and yelling. After about 20 minutes pt was able to calm himself and remained in his room until bedtime. S/I, H/I: Pt denies both. A/VH: Denies, pt appears internally preoccupied Sleep: ADL's: Pt. requires direction and encouragement Group attendance: Were meds taken: Yes, without issue. Any med S/E: None reported or observed. Mental Status Exam Appearance: Somewhat disheveled, however appropriately dressed Eye contact: Fair Behavior: Cooperative, guarded, and withdrawn Speech: Soft, minimal. Mood: Euthymic Affect: Blunted with animation Thought process: Disorganized Thought Content: Paranoid delusions Cognition: A&O X2 (name and place) Insight: Poor Judgment: Poor Interventions PRN's used: None Therapeutic interventions: Maintained a safe and supportive environment, provided clear and simple instructions, attempted to orient to reality, encouraged participation on the unit, monitored behaviors and provided intervention and redirection as needed, and maintained Q 15 min safety checks. Restraints/seclusion/emergency medication: N/A Justification of Continued Inpatient Treatment: Patient is LPS conserved and is at baseline. Pt has been accepted at [facility] and will transfer as soon as admission criteria is complete.
[2021-08-22 07:25] VITALS: BP 136/86
[2021-08-22] MEDS: LORazepam 1 MG tablet PO SCH ×3 (08:04→20:19)
[2021-08-22] MEDS: lactobacillus rhamnosus 10,000 MMU CELLS/CAPSULE PO SCH ×2 (08:04→20:19)
[2021-08-22] MEDS: docusate sod 100mg capsule PO SCH ×2 (08:04→20:19)
[2021-08-22] MEDS: LOXAPINE SUCCINATE 25 MG CAPSULE PO SCH ×2 (08:04→20:19)
[2021-08-22] MEDS: amantadine 100 MG capsule PO SCH ×2 (08:04→20:19)
[2021-08-22] MEDS: ibuprofen tablet 400 MG TABLET PO SCH ×3 (08:04→20:20)
[2021-08-22] MEDS: pantoprazole 40mg Tablet.DR PO SCH (08:05)
--- NOTE | 2021-08-22 14:18 | NUR ---
DISCHARGE PLAN UPDATE Kenneth has court on 08/26/21 at 1:30 PM. He will get picked up at 12:[address]. He will return to [facility] after. On 08/27/21, he will get picked up at 9:30 AM to go to [facility] in [place]. He will need all his belongings and his medications which are in the [facility]. He will also need a Covid test (antigen) done on 08/26/21 for admittance to [facility]. BHAVANA Castanon
--- NOTE | 2021-08-22 16:26 | NUR ---
Nursing Progress Note: Legal hold: LPS Client on involuntary status for GD. Report received from KEIRA Cordon with use of SBAR Why are they here: Patient admitted to [facility] on 5150 GD. 5150 states Genoveva (payee) was concerned he could not utilize his funds and they were concerned he could not obtain food and clothing due to his mental illness. He has a wound to his right finger and states delusions regarding a nuclear submarine. Public guardian will serve 5 day notice for temporary conservatorship. He does have a history of LPS conservatorship. Assessment What has happened this shift: Patient is resting quietly in bed at the start of the shift. Awakened for breakfast. Eats in the community room and interacts appropriately with staff and peers. Cooperative with 1:1 assessment and medications. Listens to headphones frequently and naps off and on throughout the day. Seen by the medical doctor and has no complaints. S/I, H/I: Denies A/VH: Denies but appears internally occupied Sleep: 2 hours in the morning. Naps off and on throughout the day ADL's: Independent Group attendance: NA Were meds taken: Yes Any med S/E: None observed or reported Mental Status Exam Appearance: Middle aged appearing man with poor dentation dressed in green unit scrubs. Eye contact: Fair Behavior: Cooperative, isolative Speech: Mumbled, minimal Mood: Fine. Affect: Blunted with animation Thought process: Disorganized Thought Content: Paranoid delusions Cognition: A&O X2 (name and place) Insight: Poor Judgment: Poor Interventions PRN's used: None Therapeutic interventions: Maintained a safe and supportive environment, provided clear and simple instructions, attempted to orient to reality, encouraged participation on the unit, monitored behaviors and provided intervention and redirection as needed, and maintained Q 15 min safety checks. Restraints/seclusion/emergency medication: N/A Justification of Continued Inpatient Treatment: Patient is LPS conserved and is at baseline. Pt has been accepted at [facility] and will transfer as soon as admission criteria is complete.
[2021-08-22 19:00] VITALS: BP 119/87
[2021-08-22] MEDS: traZODone 50mg tablet PO SCH (20:20)
--- NOTE | 2021-08-23 02:02 | NUR ---
Nursing Progress Note: Kenneth Legal hold: LPS Client on involuntary status for GD. Report received from Caridad CROCKETT with use of SBAR Why are they here: Patient admitted to [facility] on 5150 GD. 5150 states Genoveva (payee) was concerned he could not utilize his funds and they were concerned he could not obtain food and clothing due to his mental illness. He has a wound to his right finger and states delusions regarding a nuclear submarine. Public guardian will serve 5 day notice for temporary conservatorship. He does have a history of LPS conservatorship. Assessment What has happened this shift: Patient is resting in bed with headphones on. Pt cooperative with care, medication compliant and up for snacks. He states he enjoys listening to the headphones and loves the song man walking. Pt to bed shortly after snack time. S/I, H/I: Denies A/VH: Denies but appears internally occupied Sleep: ADL's: Independent Group attendance: NA Were meds taken: Yes Any med S/E: None observed or reported Mental Status Exam Appearance: Middle aged appearing man with poor dentation dressed in green unit scrubs. Eye contact: Fair Behavior: Cooperative, isolative Speech: Mumbled, minimal Mood: Fine. Affect: Blunted with animation Thought process: Disorganized Thought Content: Paranoid delusions Cognition: A&O X2 (name and place) Insight: Poor Judgment: Poor Interventions PRN's used: None Therapeutic interventions: Maintained a safe and supportive environment, provided clear and simple instructions, attempted to orient to reality, encouraged participation on the unit, monitored behaviors and provided intervention and redirection as needed, and maintained Q 15 min safety checks. Restraints/seclusion/emergency medication: N/A Justification of Continued Inpatient Treatment: Patient is LPS conserved and is at baseline. Pt has been accepted at [facility] and will transfer as soon as admission criteria is complete.
[2021-08-23 07:51] VITALS: BP 107/63
[2021-08-23] MEDS: LORazepam 1 MG tablet PO SCH ×3 (08:48→21:15)
[2021-08-23] MEDS: pantoprazole 40mg Tablet.DR PO SCH (08:48)
[2021-08-23] MEDS: ibuprofen tablet 400 MG TABLET PO SCH ×3 (08:48→21:15)
[2021-08-23] MEDS: docusate sod 100mg capsule PO SCH ×2 (08:48→21:15)
[2021-08-23] MEDS: lactobacillus rhamnosus 10,000 MMU CELLS/CAPSULE PO SCH ×2 (08:48→21:15)
[2021-08-23] MEDS: amantadine 100 MG capsule PO SCH ×2 (08:48→21:15)
[2021-08-23] MEDS: LOXAPINE SUCCINATE 25 MG CAPSULE PO SCH ×2 (08:52→21:15)
--- NOTE | 2021-08-23 16:54 | NUR ---
Nursing Progress Note: Legal hold: TCON Client on involuntary status for GD. Report received from Courtney Cleary RN with use of SBAR Why are they here: Patient admitted to [facility] on 5150 GD. 5150 states Genoveva (payee) was concerned he could not utilize his funds and they were concerned he could not obtain food and clothing due to his mental illness. He has a wound to his right finger and states delusions regarding a nuclear submarine. Public guardian will serve 5 day notice for temporary conservatorship. He does have a history of LPS conservatorship. Assessment What has happened this shift: Pt sleeping at the start of the shift. He awoke for breakfast, medication administration and morning assessment. Pt is perseverating on leaving. He sounds somewhat depressed. This nurse explained to him he is being conserved and court is on August 26. Pt became verbally angry. But was polite about it. Pt later came to this nurse saying that is abdomen hurts on the right side asking for hot chocolate. He then told the tech, "Rip is making our bombs." S/I, H/I: Denies A/VH: Denies but appears internally occupied Sleep: Naps off and on throughout the day ADL's: Independent Group attendance: NA Were Meds taken: Yes Any med S/E: None observed or reported Mental Status Exam Appearance: Middle aged appearing man dressed in black jeans and a black sweatshirt. Eye contact: Fair Behavior: Cooperative, isolative Speech: Mumbled, minimal Mood: "tired" Affect: Blunted with animation Thought process: Disorganized Thought Content: Paranoid delusions Cognition: A&O X2 (name and place) Insight: Poor Judgment: Poor Interventions PRN's used: None Therapeutic interventions: Provided medication administration/education/monitoring, provided 1:1 assessment with therapeutic communication and active listening, provided clear and simple instructions, attempted to orient to reality, encouraged participation on the unit, monitored behaviors and provided intervention and redirection as needed, and maintained Q 15 min safety checks. Restraints/seclusion/emergency medication: N/A Justification of Continued Inpatient Treatment: Patient is LPS conserved and is at baseline. Pt has been accepted at [facility] and will transfer as soon as admission criteria is complete.
[2021-08-23 20:00] VITALS: BP 122/87
[2021-08-23] MEDS: traZODone 50mg tablet PO SCH (21:15)
--- NOTE | 2021-08-24 00:49 | NUR ---
Nursing Progress Note: Kenneth Legal hold: TCON Client on involuntary status for GD. Report received from KEIRA Mclean with use of SBAR Why are they here: Patient admitted to [facility] on 5150 GD. 5150 states Genoveva (payee) was concerned he could not utilize his funds and they were concerned he could not obtain food and clothing due to his mental illness. He has a wound to his right finger and states delusions regarding a nuclear submarine. Public guardian will serve 5 day notice for temporary conservatorship. He does have a history of LPS conservatorship. Assessment What has happened this shift: Pt lying in bed resting with headphones on. Pt cooperative with care and states he is doing just fine. Up for snacks and took all HS medications. Pt polite with this RN this evening, no needs at this time. Went to bed shortly after med pass. S/I, H/I: Denies A/VH: Denies but appears internally occupied Sleep: ADL's: Independent Group attendance: NA Were Meds taken: Yes Any med S/E: None observed or reported Mental Status Exam Appearance: Middle aged appearing man dressed in black jeans and a black sweatshirt. Eye contact: Fair Behavior: Cooperative, isolative Speech: Mumbled, minimal Mood: "just fine Affect: Blunted with animation Thought process: Disorganized Thought Content: Paranoid delusions Cognition: A&O X2 (name and place) Insight: Poor Judgment: Poor Interventions PRN's used: None Therapeutic interventions: Provided medication administration/education/monitoring, provided 1:1 assessment with therapeutic communication and active listening, provided clear and simple instructions, attempted to orient to reality, encouraged participation on the unit, monitored behaviors and provided intervention and redirection as needed, and maintained Q 15 min safety checks. Restraints/seclusion/emergency medication: N/A Justification of Continued Inpatient Treatment: Patient is LPS conserved and is at baseline. Pt has been accepted at [facility] and will transfer as soon as admission criteria is complete.
[2021-08-24 08:00] VITALS: BP 103/68
[2021-08-24] MEDS: lactobacillus rhamnosus 10,000 MMU CELLS/CAPSULE PO SCH ×2 (08:33→20:37)
[2021-08-24] MEDS: pantoprazole 40mg Tablet.DR PO SCH (08:33)
[2021-08-24] MEDS: LORazepam 1 MG tablet PO SCH ×3 (08:33→20:37)
[2021-08-24] MEDS: ibuprofen tablet 400 MG TABLET PO SCH ×3 (08:33→20:37)
[2021-08-24] MEDS: amantadine 100 MG capsule PO SCH ×2 (08:33→20:37)
[2021-08-24] MEDS: docusate sod 100mg capsule PO SCH ×2 (08:33→20:37)
[2021-08-24] MEDS: LOXAPINE SUCCINATE 25 MG CAPSULE PO SCH ×2 (08:36→20:38)
--- NOTE | 2021-08-24 16:08 | NUR ---
Nursing Progress Note: Legal hold: TCON Client on involuntary status for GD. Report received from Courtney Cleary RN with use of SBAR Why are they here: Patient admitted to [facility] on 5150 GD. 5150 states Genoveva (payee) was concerned he could not utilize his funds and they were concerned he could not obtain food and clothing due to his mental illness. He has a wound to his right finger and states delusions regarding a nuclear submarine. Public guardian will serve 5 day notice for temporary conservatorship. He does have a history of LPS conservatorship. Assessment What has happened this shift: Pt sleeping at the start of the shift. He is up for meals, medication administration and morning assessment. Pt seen occasionally alone pacing the halls. Otherwise he isolates in his room wearing headphones and singing out loud. Pt is talking about not being able to shower because of a spider in his foot that comes out in the shower. Educated pt to his delusions and hallucinations. He laughed and said, "I can shower later." S/I, H/I: Denies A/VH: Denies but appears internally occupied Sleep: Naps off and on throughout the day ADL's: Independent Group attendance: NA Were Meds taken: Yes Any med S/E: None observed or reported Mental Status Exam Appearance: Middle aged appearing man dressed in black jeans and a black sweatshirt. Eye contact: Fair Behavior: Cooperative, isolative Speech: Mumbled, minimal Mood: "Bored" Affect: Blunted with animation Thought process: Disorganized Thought Content: Paranoid delusions Cognition: A&O X2 (name and place) Insight: Poor Judgment: Poor Interventions PRN's used: None Therapeutic interventions: Provided medication administration/education/monitoring, provided 1:1 assessment with therapeutic communication and active listening, provided clear and simple instructions, attempted to orient to reality, encouraged participation on the unit, monitored behaviors and provided intervention and redirection as needed, and maintained Q 15 min safety checks. Restraints/seclusion/emergency medication: N/A Justification of Continued Inpatient Treatment: Patient is LPS conserved and is at baseline. Pt has been accepted at [facility] and will transfer as soon as admission criteria is complete.
[2021-08-24 20:02] VITALS: BP 97/68
[2021-08-24] MEDS: traZODone 50mg tablet PO SCH (20:37)
--- NOTE | 2021-08-25 02:28 | NUR ---
Nursing Progress Note: Legal hold: TCON Client on involuntary status for GD. Report received from KEIRA Castellon with use of SBAR Why are they here: Patient admitted to [facility] on 5150 GD. 5150 states Genoveva (payee) was concerned he could not utilize his funds and they were concerned he could not obtain food and clothing due to his mental illness. He has a wound to his right finger and states delusions regarding a nuclear submarine. Public guardian will serve 5 day notice for temporary conservatorship. He does have a history of LPS conservatorship. Assessment What has happened this shift: Pt sleeping at the start of the shift. Awake for medications and snack. Takes meds after each medication is identified for him. Isolated in his room all shift. Denied all mental health symptoms minimal response to questions. Very little conversation did not say anything delusional S/I, H/I: Denies A/VH: Denies but appears internally occupied Sleep: Asleep at this time ADL's: Independent Group attendance: NA Were Meds taken: Yes Any med S/E: None observed or reported Mental Status Exam Appearance: dressed in black jeans and a black sweatshirt. Eye contact: Fair Behavior: Cooperative, isolative Speech: Mumbled, minimal Mood: "Bored" Affect: Blunted with animation Thought process: Disorganized Thought Content: Paranoid delusions Cognition: A&O X2 (name and place) Insight: Poor Judgment: Poor Interventions PRN's used: None Therapeutic interventions: Provided medication administration/education/monitoring, provided 1:1 assessment with therapeutic communication and active listening, provided clear and simple instructions, attempted to orient to reality, encouraged participation on the unit, monitored behaviors and provided intervention and redirection as needed, and maintained Q 15 min safety checks. Restraints/seclusion/emergency medication: N/A Justification of Continued Inpatient Treatment: Patient is LPS conserved and is at baseline. Pt has been accepted at [facility] and will transfer as soon as admission criteria is complete.
[2021-08-25] MEDS: LORazepam 1 MG tablet PO SCH ×3 (08:06→20:19)
[2021-08-25] MEDS: lactobacillus rhamnosus 10,000 MMU CELLS/CAPSULE PO SCH ×2 (08:06→20:19)
[2021-08-25] MEDS: pantoprazole 40mg Tablet.DR PO SCH (08:06)
[2021-08-25] MEDS: docusate sod 100mg capsule PO SCH ×2 (08:06→20:18)
[2021-08-25] MEDS: LOXAPINE SUCCINATE 25 MG CAPSULE PO SCH ×2 (08:06→20:19)
[2021-08-25] MEDS: amantadine 100 MG capsule PO SCH ×2 (08:06→20:19)
[2021-08-25] MEDS: ibuprofen tablet 400 MG TABLET PO SCH ×3 (08:06→20:19)
[2021-08-25 08:36] VITALS: BP 97/68
--- NOTE | 2021-08-25 15:50 | NUR ---
Nursing Progress Note: Legal hold: TCON Client on involuntary status for GD. Report received from Neris CROCKETT with use of SBAR Why are they here: Patient admitted to [facility] on 5150 GD. 5150 states Genoveva (payee) was concerned he could not utilize his funds and they were concerned he could not obtain food and clothing due to his mental illness. He has a wound to his right finger and states delusions regarding a nuclear submarine. Public guardian will serve 5 day notice for temporary conservatorship. He does have a history of LPS conservatorship. Assessment What has happened this shift: Pt sleeping at the start of the shift. He awoke for breakfast, medication administration and morning assessment. Pt has depressed affect. Mood is apathetic. Pt offered no complaints this shift. Out for meals then would return to his room. Listens to headphones. S/I, H/I: Denies A/VH: Denies but appears internally occupied Sleep: Naps off and on throughout the day ADL's: Independent Group attendance: NA Were Meds taken: Yes Any med S/E: None observed or reported Mental Status Exam Appearance: Middle aged appearing man dressed in black jeans and a black sweatshirt. Eye contact: Fair Behavior: Cooperative, isolative Speech: Mumbled, minimal Mood: "tired" Affect: Blunted with animation Thought process: Disorganized Thought Content: Paranoid delusions Cognition: A&O X2 (name and place) Insight: Poor Judgment: Poor Interventions PRN's used: None Therapeutic interventions: Provided medication administration/education/monitoring, provided 1:1 assessment with therapeutic communication and active listening, provided clear and simple instructions, attempted to orient to reality, encouraged participation on the unit, monitored behaviors and provided intervention and redirection as needed, and maintained Q 15 min safety checks. Restraints/seclusion/emergency medication: N/A Justification of Continued Inpatient Treatment: Patient is LPS conserved and is at baseline. Pt has been accepted at [facility] and will transfer as soon as admission criteria is complete.
[2021-08-25 19:16] VITALS: BP 107/76
[2021-08-25] MEDS: traZODone 50mg tablet PO SCH (20:19)
--- NOTE | 2021-08-25 20:53 | NUR ---
Nursing Progress Note: Legal hold: TCON Client on involuntary status for GD. Report received from Kenneth CROCKETT with use of SBAR Why are they here: Patient admitted to [facility] on 5150 GD. 5150 states Genoveva (payee) was concerned he could not utilize his funds and they were concerned he could not obtain food and clothing due to his mental illness. He has a wound to his right finger and states delusions regarding a nuclear submarine. Public guardian will serve 5 day notice for temporary conservatorship. He does have a history of LPS conservatorship. Assessment What has happened this shift: Pt was out on the floor walking at change of shift, but returns to his room and isolates listening to headphones. Pt reports no needs at this time. States his day was "Ok". Pt gives minimal response to questions. S/I, H/I: Denies A/VH: Denies but appears internally occupied Sleep: see sleep hours ADL's: Independent Group attendance: NA Were Meds taken: Yes Any med S/E: None observed or reported Mental Status Exam Appearance: Middle aged appearing man dressed in black jeans and a black sweatshirt. Eye contact: Fair Behavior: Cooperative, isolative Speech: Mumbled, minimal Mood: "good" Affect: Blunt Thought process: Disorganized, thought blocking Thought Content: unable to assess pt gives minimal response to questions Cognition: A&O X2 (name and place) Insight: Poor Judgment: Poor Interventions PRN's used: None Therapeutic interventions: Provided medication administration/education/monitoring, provided 1:1 assessment with therapeutic communication and active listening, provided clear and simple instructions, attempted to orient to reality, encouraged participation on the unit, monitored behaviors and provided intervention and redirection as needed, and maintained Q 15 min safety checks. Restraints/seclusion/emergency medication: N/A Justification of Continued Inpatient Treatment: Patient is LPS conserved and is at baseline. Pt has been accepted at [facility] and will transfer as soon as admission criteria is complete.
--- NOTE | 2021-08-26 07:30 | NUR ---
Covid test: Tested pt with antigen test. Pt tested negative
[2021-08-26] MEDS: LOXAPINE SUCCINATE 25 MG CAPSULE PO SCH ×2 (07:50→20:08)
[2021-08-26] MEDS: pantoprazole 40mg Tablet.DR PO SCH (07:50)
[2021-08-26] MEDS: ibuprofen tablet 400 MG TABLET PO SCH ×3 (07:50→20:08)
[2021-08-26] MEDS: docusate sod 100mg capsule PO SCH ×2 (07:50→20:07)
[2021-08-26] MEDS: amantadine 100 MG capsule PO SCH ×2 (07:50→20:09)
[2021-08-26] MEDS: lactobacillus rhamnosus 10,000 MMU CELLS/CAPSULE PO SCH ×2 (07:50→20:08)
[2021-08-26] MEDS: LORazepam 1 MG tablet PO SCH ×3 (07:50→20:08)
[2021-08-26 08:00] VITALS: BP 114/80
--- NOTE | 2021-08-26 10:06 | NUR ---
Reassessment: Pt continues eating well, documented with mostly 100% PO intake while receiving double eggs WB meeting estimated nutrient needs. [facility] 08/25. No nutrition intervention implemented at this time. Will continue to follow. Recommendations: 1. Continue regular diet 2. Double eggs WB; monitor need for additional protein for satiety 3. Routine bowel care 4. Weekly scaled wts Addendum: 08/26/21 at [address] Amended: Links added.
--- NOTE | 2021-08-26 17:28 | NUR ---
Nursing Progress Note: Legal hold: LPS Conserved Client on involuntary status for GD. Report received from GAVIOTA Ridley with use of SBAR. Why they are here: Patient admitted to [facility] on 5150 GD. 5150 states [employer] (payee) was concerned he could not utilize his funds and they were concerned he could not obtain food and clothing due to his mental illness. He has a wound to his right finger and states delusions regarding a nuclear submarine. Public guardian will serve 5 day notice for temporary conservatorship. He does have a history of LPS conservatorship. Assessment What has happened this shift: Patient is resting quietly in bed at the start of the shift. Cooperative with 1:1 assessment and medications. States, Im worried about my hearing. I dont want to go anywhere out of [place]. [place] killed 14 people in my family. In the afternoon the patient goes to his hearing and returns. States, I lost. Noted talking to himself frequently and makes bizzar statements including, The one with the lasers had them there. S/I, H/I: Endorses thoughts of hurting people. Denies SI/ HI A/VH: Denies but appears internally occupied Sleep: 1 hour in the morning. Naps during the day. ADL's: Independent Group attendance: No Were Meds taken: Yes Any med S/E: None observed or reported Mental Status Exam Appearance: Middle aged appearing man, obvious dental carries, dressed in casual personal attire. Eye contact: Good Behavior: Cooperative, isolative Speech: Mumbled, minimal Mood: "Im worried." Affect: Blunted Thought process: Disorganized, thought blocking Thought Content: Concerned about his hearing today and does not want to be conserved again. Cognition: A&O X2 (name and place) Insight: Poor Judgment: Poor Interventions PRN's used: None Therapeutic interventions: Provided medication administration/education/monitoring, provided 1:1 assessment with therapeutic communication and active listening, provided clear and simple instructions, attempted to orient to reality, encouraged participation on the unit, monitored behaviors and provided intervention and redirection as needed, and maintained Q 15 min safety checks. Restraints/seclusion/emergency medication: N/A Justification of Continued Inpatient Treatment: Patient is LPS conserved and is at baseline. Pt has been accepted at [facility] and will transfer as soon as admission criteria is complete.
[2021-08-26 19:24] VITALS: BP 114/73
[2021-08-26] MEDS: traZODone 50mg tablet PO SCH (20:09)
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
--- NOTE | 2021-08-27 06:50 | NUR ---
DISCHARGE TODAY Kenneth will get picked up at 9:30 AM to go to [facility] in [place]. He will need all his belongings and his medications which are in the [facility]. BHAVANA Castanon
[2021-08-27] MEDS: LORazepam 1 MG tablet PO SCH (08:07)
[2021-08-27] MEDS: docusate sod 100mg capsule PO SCH (08:07)
[2021-08-27] MEDS: amantadine 100 MG capsule PO SCH (08:08)
[2021-08-27] MEDS: pantoprazole 40mg Tablet.DR PO SCH (08:08)
[2021-08-27] MEDS: LOXAPINE SUCCINATE 25 MG CAPSULE PO SCH (08:08)
[2021-08-27] MEDS: lactobacillus rhamnosus 10,000 MMU CELLS/CAPSULE PO SCH (08:08)
[2021-08-27] MEDS: ibuprofen tablet 400 MG TABLET PO SCH (08:08)
[2021-08-27 08:19] VITALS: BP 106/70
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
== END 2021-08-27 09:36 | disposition home or self-care (01) | DRG 885 ==
LOC: ER 12:02 → ADULT MH 07-17 14:00
PROVIDERS: ADMIT Psychiatry & Neurology Psychiatry; ATTEND Psychiatry & Neurology Psychiatry
PROC: 3E0234Z Introduction of Serum, Toxoid and Vaccine into Muscle, Percutaneous Approach (ICD-10-PCS; principal; 2021-07-17)
DX: F20.9 Schizophrenia, unspecified (principal); U07.1 COVID-19; D61.818 Other pancytopenia; L02.511 Cutaneous abscess of right hand; F15.10 Other stimulant abuse, uncomplicated; E87.6 Hypokalemia; F10.10 Alcohol abuse, uncomplicated; F11.10 Opioid abuse, uncomplicated; F12.90 Cannabis use, unspecified, uncomplicated; F14.90 Cocaine use, unspecified, uncomplicated; T23.021A Burn of unspecified degree of single right finger (nail) except thumb, initial encounter; E66.9 Obesity, unspecified; K70.30 Alcoholic cirrhosis of liver without ascites; F17.210 Nicotine dependence, cigarettes, uncomplicated; S90.822A Blister (nonthermal), left foot, initial encounter; K02.9 Dental caries, unspecified; K04.7 Periapical abscess without sinus; R09.81 Nasal congestion; K21.9 Gastro-esophageal reflux disease without esophagitis; L03.032 Cellulitis of left toe; Z78.9 Other specified health status; Z91.14 Patient's other noncompliance with medication regimen; Z23 Encounter for immunization; Z59.00 Homelessness unspecified; Z88.8 Allergy status to other drugs, medicaments and biological substances; Z79.899 Other long term (current) drug therapy; Z71.6 Tobacco abuse counseling; Z68.29 Body mass index [BMI] 29.0-29.9, adult; K59.00 Constipation, unspecified
CPT/HCPCS: 36415; 71045; 80048; 80053; 80061; 80305; 80320; 81001; 82140; 82948; 84132; 84145; 84443; 85007; 85025; 85379; 86140; 87070; 87077; 87081; 87186; 87635; 90471; 90715; 93005; 99285; C9803